=== PATIENT | female | born 1995 | race Caucasian/White ===

== ENCOUNTER 2016-10-14 11:36 | Emergency (ER) | payer OTHER ==
[2016-10-14 12:24] VITALS: BP 146/76
== END 2016-10-14 13:44 | disposition left against medical advice (07) ==
LOC: ED 11:36
DX: M54.9 Dorsalgia, unspecified (principal)

== ENCOUNTER 2016-10-16 10:26 | Emergency (ER) | payer OTHER | END 2016-10-16 12:06 | disposition left against medical advice (07) | LOC: UCEAST 10:26 | DX: K62.89 Other specified diseases of anus and rectum (principal) ==

== ENCOUNTER 2016-10-27 09:40 | Emergency (ER) | payer OTHER ==
[2016-10-27 10:52] VITALS: BP 148/80
--- NOTE | 2016-10-27 11:03 | UC ---
- HPI Summary HPI Summary: Here for test took one at home that was positive and one was negative LMP [id number]/14/16 feels more fatigued, breast tenderness not sure if she wants to be but will give up for adoption needs a med refill- lidocaine jelly for genital herpes outbreak current outbreak started valtrex this morning needs albuterol inhaler- - History of Current Complaint Chief Complaint: UCGeneralIllness Stated Complaint: TEST Time Seen by Provider: 10/27/16 10:58 Hx Obtained From: Patient - Assessment Hx Now: No Hx Hysterectomy: No - Additional Pertinent History Primary Care Physician: [id number] - Allergies/Home Medications Allergies/Adverse Reactions: Allergies Allergy/AdvReac Type Severity Reaction Status Date / Time Cefadroxil [From [facility] [place] Allergy Severe Hives Verified 07/29/16 18:55 Amoxicillin Allergy Rash And Verified 07/29/16 18:55 Itching Clindamycin Allergy Nausea And Verified 07/29/16 18:55 Vomiting Home Medications: Home Medications ValACYclovir (*) [Valtrex 500 mg (*)] 500 mg PO 10/27/16 [History] PMH/Surg Hx/FS Hx/Imm Hx Previously Healthy: No - herpes outbreak Endocrine/Hematology History: Reports: Hx Thyroid Disease Denies: Hx Diabetes Cardiovascular History: Denies: Hx Hypertension Respiratory History: Reports: Hx Asthma Denies: Hx Chronic Obstructive Pulmonary Disease (COPD) GI History: Denies: Hx Ulcer Sensory History: Denies: Hx Contacts or Glasses Opthamlomology History: Denies: Hx Contacts or Glasses Neurological History: Denies: Other Neuro Impairments/Disorders Psychiatric History: Reports: Hx Eating Disorder - binging & purging age 11-18 Denies: Hx of Violent Episodes Against Others - Surgical History Surgery Procedure, Year, and Place: wisdom teeth extraction 2013 Hx Anesthesia Reactions: No Infectious Disease History: Yes Infectious Disease History: Reports: Hx Clostridium Difficile Denies: Hx Hepatitis, Hx Human Immunodeficiency Virus (HIV), Hx of Known/ Suspected MRSA, Hx Shingles, Hx Tuberculosis, Hx Known/Suspected VRE, Hx Known/ Suspected VRSA, History Other Infectious Disease, Traveled Outside the [place] in Last 30 Days - Family History Known Family History: Positive: Hypertension, Diabetes, Respiratory Disease - asthma - Social History Occupation: Unemployed Alcohol Use: Occasionally Hx Substance Use: Yes Substance Use Type: Reports: Marijuana Substance Use Comment - Amount & Last Used: THIS PAST WEEKEND Hx Tobacco Use: No Smoking Status (MU): Former Smoker Type: Cigarettes Amount Used/How Often: up to 2 cigs weekly Have You Smoked in the Last Year: No Review of Systems Constitutional: Negative Skin: Rash Eyes: Negative ENT: Negative Respiratory: Negative Cardiovascular: Negative Gastrointestinal: Negative Genitourinary: Negative Motor: Negative Neurovascular: Negative Musculoskeletal: Negative Neurological: Negative Psychological: Negative All Other Systems Reviewed And Are Negative: Yes Physical Exam - Physical Exam Triage Information Reviewed: Yes Vital Signs Reviewed: Yes Appearance: Positive: Well-Appearing, Obese Skin: Positive: Warm, Other - refuses to have exam of herpes rash Eyes: Positive: Conjunctiva Clear ENT: Positive: Pharynx normal, TMs normal Neck: Positive: No Lymphadenopathy Respiratory/Lung Sounds: Positive: Breath Sounds Present, Decreased Breath Sounds Cardiovascular: Positive: RRR, Pulses are Symmetrical in both Upper and Lower Extremities Abdomen Description: Positive: Nontender, Soft, Distended Bowel Sounds: Positive: Present Musculoskeletal: Negative: Edema Left, Edema Right Neurological: Positive: Alert, Oriented to Person Place, Time Psychiatric: Positive: Normal AVPU Assessment: Alert Course/Dx - Course Course Of Treatment: JONATHAN 06/16/17- will start vitamin refer to CAREER DEVELOPMENT DIRECTOR. continue valtrex -safe during when needed - Diagnoses Provider Diagnoses: Discharge - Discharge Plan Condition: Stable Disposition: HOME Prescriptions: Albuterol HFA INHALER* [Ventolin HFA Inhaler*] 2 puff INH Q4H PRN #1 mdi PRN Reason: Wheezing Lidocaine 2% JELLY* 1 applic TOPICAL TID #1 jelly Vitamin TAB* 1 tab PO DAILY #30 tab Patient Education Materials: (ED) Referrals: No Primary Care Phys,NOPCP [Primary Care Provider] - Yanet Epps MD [Medical Doctor] - Additional Instructions: start your vitamin' call CAREER DEVELOPMENT DIRECTOR for further care It is important that you stop drinking alcohol and limit caffeine to 1 cup per day Do not take any medications without discussin with your ON/COLD WORKING INSPECTOR provider Please call Physician referral service to establish a primary care provider
== END 2016-10-27 11:30 | disposition home or self-care (01) ==
LOC: UCEAST 09:40
DX: Z33.1 Pregnant state, incidental (principal); Z88.1 Allergy status to other antibiotic agents; Z88.0 Allergy status to penicillin; F12.90 Cannabis use, unspecified, uncomplicated; Z87.891 Personal history of nicotine dependence
CPT/HCPCS: 81025; 99212; G0463

== ENCOUNTER 2016-11-01 07:14 | Emergency (ER) | payer OTHER ==
--- NOTE | 2016-11-01 08:10 | ED ---
Abdominal Pain/Female - HPI Summary HPI Summary: 21 F presents with pelvic pain for a week. A week ago she found out she was at urgent care. She says since then she has had cramp like pelvic pain. She has not taken anything for the pain. She admits to some nausea and vomiting. She denies any diarrhea or constipation. She denies any vaginal bleeding or discharge or dysuria. Her LMP was dec 14. She also admits to hemorrhoids that she has had for 4 weeks. She admits to occasionally rectal bleeding. - History of Current Complaint Chief Complaint: EDOBProblems Stated Complaint: 8 WKS PREG//LOWER ABD PAIN Time Seen by Provider: 11/01/16 07:50 Hx Last Menstrual Period: 09/08/16 Pain Intensity: 10 Allergies/Adverse Reactions: Allergies Allergy/AdvReac Type Severity Reaction Status Date / Time Cefadroxil [From Duricef] Allergy Severe Hives Verified 07/29/16 18:55 Amoxicillin Allergy Rash And Verified 07/29/16 18:55 Itching Clindamycin Allergy Nausea And Verified 07/29/16 18:55 Vomiting PMH/Surg Hx/FS Hx/Imm Hx Endocrine/Hematology History: Reports: Hx Thyroid Disease Denies: Hx Diabetes Cardiovascular History: Denies: Hx Hypertension Respiratory History: Reports: Hx Asthma Denies: Hx Chronic Obstructive Pulmonary Disease (COPD) GI History: Denies: Hx Ulcer Sensory History: Denies: Hx Contacts or Glasses Opthamlomology History: Denies: Hx Contacts or Glasses Neurological History: Denies: Other Neuro Impairments/Disorders Psychiatric History: Reports: Hx Eating Disorder - binging & purging age 11-18 Denies: Hx of Violent Episodes Against Others - Surgical History Surgery Procedure, Year, and Place: wisdom teeth extraction 2013 Hx Anesthesia Reactions: No Infectious Disease History: No Infectious Disease History: Reports: Hx Clostridium Difficile Denies: Hx Hepatitis, Hx Human Immunodeficiency Virus (HIV), Hx of Known/ Suspected MRSA, Hx Shingles, Hx Tuberculosis, Hx Known/Suspected VRE, Hx Known/ Suspected VRSA, History Other Infectious Disease, Traveled Outside the [place] in Last 30 Days - Family History Known Family History: Positive: Hypertension, Diabetes, Respiratory Disease - asthma - Social History Alcohol Use: Occasionally Hx Substance Use: Yes Substance Use Type: Reports: Marijuana Substance Use Comment - Amount & Last Used: THIS PAST WEEKEND Hx Tobacco Use: No Smoking Status (MU): Former Smoker Type: Cigarettes Amount Used/How Often: up to 2 cigs weekly Have You Smoked in the Last Year: No Review of Systems Negative: Fever Negative: Chest Pain Negative: Shortness Of Breath Positive: Abdominal Pain - pelvic pain, Vomiting, Nausea. Negative: Diarrhea All Other Systems Reviewed And Are Negative: Yes Physical Exam Triage Information Reviewed: Yes Vital Signs On Initial Exam: Initial Vitals Temp Pulse Resp BP Pulse Ox 98.2 F 94 20 139/59 100 11/01/16 07:31 11/01/16 07:31 11/01/16 07:31 11/01/16 07:31 11/01/16 07:31 Vital Signs Reviewed: Yes Appearance: Positive: Well-Appearing Skin: Positive: Warm, Dry Head/Face: Positive: Normal Head/Face Inspection Eyes: Positive: Normal, Conjunctiva Clear ENT: Positive: Normal ENT inspection, Pharynx normal, TMs normal Respiratory/Lung Sounds: Positive: Clear to Auscultation, Breath Sounds Present Cardiovascular: Positive: Normal, RRR Abdomen Description: Positive: Soft, Other: - mild tenderness to suprapubic region, no hemorrhoids present on exam, no rebound tenderness Bowel Sounds: Positive: Present Diagnostics - Vital Signs Vital Signs Temp Pulse Resp BP Pulse Ox 11/01/16 07:31 98.2 F 94 20 139/59 100 - Laboratory Result Diagrams: 11/01/16 08:50 11/01/16 08:50 Lab Statement: Any lab studies that have been ordered have been reviewed, and results considered in the medical decision making process. - CT No standard instances CT Interpretation: Positive (See Comments) - IMPRESSION: There is a single intrauterine gestation with a gestational age of 7 weeks 2 days. Estimated date of delivery is June 18, 2017. heart activity is noted at [address] Interpretation Completed By: Radiologist Abdominal Pain Fem Course/Dx - Course Course Of Treatment: 21 F presents with cramp like pelvic pain for a week. LMP was sep 08. urine test last week at . admits to n/v. denies any diarrhea or constipation. also has hemorrhoids to 4 weeks. mild pelvic tenderness one exam. no RLQ tenderness and do not suspect appendicits. no visible external hemorrhoids on exam. u/s interurteine with gestation age 7w2d with heart rate. explained that could by PID as cause but patient decline vaginal exam said will have done at obgyn when makes appointment. labs has slight wbc but rest of labs normal. will treat hemorrhoid conservatively and advised to establish primary. gave diclegis for nausea, patient agrees with plan - Diagnoses Differential Diagnosis: Positive: Appendicitis, Pelvic Inflammatory Disease, , Urinary Tract Infection Provider Diagnoses: Discharge - Discharge Plan Condition: Good Disposition: HOME Prescriptions: Doxylamine/Pyridoxine(NF) [Diclegis (NF)] 2 tab PO DAILY #20 tab Patient Education Materials: (ED) Referrals: [facility] [place] [facility] [Outside] Kim Yeh MD [Medical Doctor] - Additional Instructions: Establish care with primary and OBGYN Increase fiber, use stiz baths, and can use OTC topical hemorrhoid cream Take Tylenol every 6 hours for pain as needed Take two tablets diclegis bedtime for nausea Return to ED if develop any vaginal bleeding or any new or worsening symptoms
--- NOTE | 2016-11-01 09:00 | RAD ---
Indication: Pelvic pain. Real-time sonography of the was performed. There is a single intrauterine gestation with a pole crown-rump length of 1.2 cm corresponding to gestational age 7 weeks 2 days. heart activity is noted at 161 bpm. Amniotic fluid is within normal limits. The gestational sac size averages 3.0 cm corresponding to gestational age of 7 weeks 1 day. The cervix is unremarkable. The ovaries are not visualized. IMPRESSION: There is a single intrauterine gestation with a gestational age of 7 weeks 2 days. Estimated date of delivery is June 18, 2017. heart activity is noted at 161 bpm.
[2016-11-01 09:03] LABS: Hematocrit 38 % (35-47); Hemoglobin 12.4 g/dl (12.0-16.0); Mean Corpuscular HGB Conc 32 g/dl (31-36); Mean Corpuscular Hemoglobin 26 pg (27-31); Mean Corpuscular Volume 81 fL (80-97); Mean Platelet Volume 8 um3 (7.4-10.4); Red Blood Count 4.71 10^6/ul (4.0-5.4); Red Cell Distribution Width 16 % (10.5-15); White Blood Count 13.1 10^3/ul (3.5-10.8)
[2016-11-01 09:19] LABS: Albumin 4.2 g/dL (3.2-5.2); BUN/Creatinine Ratio 16.7 (8-20); Calcium 9.2 mg/dL (8.6-10.3); EGFR African American 131.5 (>60); EGFR Non-African American 102.3 (>60); Globulin 3.5 g/dL (2-4); Potassium 3.7 mmol/L (3.5-5.0); Total Bilirubin 0.4 mg/dL (0.2-1.0); Total Protein 7.7 g/dL (6.4-8.9)
[2016-11-01 10:33] VITALS: BP 122/72
[2016-11-01 10:36] LABS: Urine Bacteria Absent (Absent); Urine Bilirubin Negative (Negative); Urine Glucose Negative (Negative); Urine Nitrite Negative (Negative)
== END 2016-11-01 10:30 | disposition home or self-care (01) ==
LOC: ED 07:14
DX: R10.2 Pelvic and perineal pain (principal); R11.2 Nausea with vomiting, unspecified; Z3A.01 Less than 8 weeks gestation of pregnancy
CPT/HCPCS: 36415; 76817; 80053; 81003; 81015; 84702; 85025; 86900; 86901; 87086; 99282

== ENCOUNTER 2016-11-11 13:23 | Emergency (ER) | payer OTHER ==
[2016-11-11] MEDS ORDERED: Ipratropium 0.5MG/2.5ML NEB* 0.5 MG/2.5 ML NEB.SOLN INH ONE (13:33)
[2016-11-11] MEDS ORDERED: Albuterol 2.5 MG/3 ML NEB.SOL* (0.083%) INH ONE ×2 (13:33→14:17)
[2016-11-11] MEDS ORDERED: Albuterol 2.5 MG/3 ML NEB.SOL* (0.083%) ONE (13:33)
[2016-11-11] MEDS ORDERED: Ipratropium 0.5MG/2.5ML NEB* 0.5 MG/2.5 ML NEB.SOLN ONE (13:33)
[2016-11-11 13:37] VITALS: BP 146/86
[2016-11-11] MEDS ORDERED: Ibuprofen TAB* 400 MG PO ONE (14:17)
[2016-11-11] MEDS ORDERED: methylPREDNISolone SOD SUCC* 125 MG 2 ML VIAL IM ONE (14:20)
--- NOTE | 2016-11-11 15:16 | RAD ---
HISTORY: Wheezing, cough, fever COMPARISONS: November 10, 2015 VIEWS: 2: Frontal dual-energy and lateral views of the chest. FINDINGS: CARDIOMEDIASTINAL SILHOUETTE: The cardiomediastinal silhouette is normal. TARAN: The taran are normal. PLEURA: The costophrenic angles are sharp. No pleural abnormalities are noted. LUNG PARENCHYMA: The lungs are clear. ABDOMEN: The upper abdomen is clear. There is no subphrenic gas. BONES AND SOFT TISSUES: No bone or soft tissue abnormalities are noted. OTHER: None. IMPRESSION: NO ACTIVE CARDIOPULMONARY DISEASE.
[2016-11-11] MEDS ORDERED: NS 0.9% 1000 ML* 1,000 ML IV ONE (15:33)
--- NOTE | 2016-12-27 09:53 | UC ---
Ap Garcia Adam, scribed for Marielos Robert, DO on 11/11/16 at 1341 . Respiratory Complaint HPI <Cecille Stratton - Last Filed: 11/11/16 15:27> - HPI Summary HPI Summary: Pt is a 21 year old female presenting with SOB. She states that she can not walk more than 4 steps without becoming short of breath. Pt states that she got sick approximately 2 weeks ago with cough, congestion, and some blood in her sputum. She states that she has been unable to tolerate food for the past 4 days without vomiting. She had an episode of syncope in the shower last night and does not remember if she hit her head. She does c/o increased [place] since the fall last night. Pt is 2 months and 3 days . She has not seen an OB yet. PMHx of asthma and thyroid disease. - History of Current Complaint Hx Obtained From: Patient Hx Last Menstrual Period: 09/08/16 ?: Yes Onset/Duration: Gradual Onset, Lasting Days, Still Present Timing: Constant Severity Initially: Moderate Severity Currently: Moderate Pain Intensity: 10 Character: Sputum Description: - Some blood found Aggravating Factors: Exertion Alleviating Factors: Nothing Associated Signs And Symptoms: Positive: Dyspnea, URI, Nasal Congestion - Risk Factors Pulmonary Embolism Risk Factors: <Marielos Robert - Last Filed: 12/27/16 09:53> - History of Current Complaint Stated Complaint: BREATHING ISSUE,ASTHMA,PREG Time Seen by Provider: 11/11/16 13:33 - Allergies/Home Medications Allergies/Adverse Reactions: Allergies Allergy/AdvReac Type Severity Reaction Status Date / Time Cefadroxil [From Duricef] Allergy Severe Hives Verified 12/19/16 12:24 Amoxicillin Allergy Rash And Verified 12/19/16 12:24 Itching Clindamycin Allergy Nausea And Verified 12/19/16 12:24 Vomiting Home Medications: Home Medications Acetaminophen [Extra Strength Acetaminop] 1 tab PO PRN 11/11/16 [History] PMH/Surg Hx/FS Hx/Imm Hx Endocrine History Of: Reports: Thyroid Disease Denies: Diabetes Cardiovascular History Of: Denies: Cardiac Disorders, Hypertension Respiratory History Of: Reports: Asthma Denies: COPD GI/ History Of: Denies: Ulcer Neurological History Of: Denies: CVA - Surgical History Surgical History: Yes Surgery Procedure, Year, and Place: wisdom teeth extraction 2012 - Family History Known Family History: Positive: Hypertension, Diabetes, Respiratory Disease - asthma, Other - Anxiety, bipolar, EtOH abuse - Social History Occupation: Employed Full-time Lives: With Family - Parents Alcohol Use: Occasionally Substance Use Comment - Amount & Last Used: THIS PAST Smoking Status (MU): Former Smoker Type: Cigarettes Amount Used/How Often: up to 2 cigs weekly Have You Smoked in the Last Year: No When Did the Patient Quit Smoking/Using Tobacco: 2013 Household Exposure Type: Cigarettes - Immunization History Most Recent Influenza Vaccination: [facility] Most Recent Tetanus Shot: [facility] Most Recent Pneumonia Vaccination: NONE <Marielos Robert - Last Filed: 12/27/16 09:53> Review of Systems Constitutional: Negative ENT: Other - Congestion Respiratory: Shortness Of Breath, Cough Neurological: Headache, Other - Syncope All Other Systems Reviewed And Are Negative: Yes <Marielos Robert - Last Filed: 12/27/16 09:53> Physical Exam Vital Signs: Initial Vital Signs Temp 98.8 F 11/11/16 13:28 Pulse 104 11/11/16 13:28 Resp 36 11/11/16 13:28 BP 146/86 11/11/16 13:28 Pulse Ox 96 11/11/16 13:28 <Cecille Stratton - Last Filed: 11/11/16 15:27> Triage Information Reviewed: Yes Appearance: Well-Appearing, No Pain Distress, Well-Nourished Vital Signs: Initial Vital Signs Temp 98.8 F 11/11/16 13:28 Pulse 104 11/11/16 13:28 Resp 36 11/11/16 13:28 BP 146/86 11/11/16 13:28 Pulse Ox 96 11/11/16 13:28 Eyes: Positive: Conjunctiva Clear. Negative: Discharge ENT: Positive: Hearing grossly normal. Negative: Muffled/hoarse voice Neck: Positive: Supple, Nontender Respiratory: Positive: No accessory muscle use, Respiratory distress - mild, Wheezing - diffuse, all feilds Cardiovascular: Positive: RRR, No Murmur Abdomen Description: Positive: Nontender, Soft Bowel Sounds: Positive: Present Musculoskeletal Exam: Normal Neurological: Positive: Alert, Muscle Tone Normal Psychological Exam: Normal Psychological: Positive: Age Appropriate Behavior Skin: Positive: Other - Warm, dry, normal color <Marielos Robert - Last Filed: 12/27/16 09:53> UC Diagnostic Evaluation - Laboratory Diagnostic Studies Comment: CXR neg <Cecille Stratton - Last Filed: 11/11/16 15:27> Re-Evaluation - Re-Evaluation First Eval Re-Evaluation Time: 14:40 Comment: after Duoneb, she feels about the same. SOB at rest, can't speak in complete sentences. No vomiting here, no vaginal bleeding or abdominal cramping. She does relate to me that she has been vomiting consistently for past few days, "can't hold anything down", vomiting spells initiated by cough and wheezing. Coughing up brown/yellow/bloody phlegm. Worsening symptoms for past 4d, but URI symptoms present for about 2 weeks. , was referred here by her OB office when she reported that frequent nebulizer use wasn't helping her. Second Eval Re-Evaluation Time: 15:15 Change: Unchanged Comment: on return from CXR, was again severely SOB at rest. Started a second neb. Diffuse exp wheezes, rhonchi. I do not think she will clear here in Urgent Care, have arranged for ambulance transfer to [facility]. Spoke with PA in ER who accepted transfer. <Cecille Stratton - Last Filed: 11/11/16 15:27> Respiratory Course/Dx - Differential Dx/Diagnosis Differential Diagnosis/HQI/PQRI: Asthma, Bronchitis, Lower Resp Infection, Pneumothorax, Pulmonary Embolism Provider Diagnoses: asthma exacerbation in <Cecille Stratton - Last Filed: 11/11/16 15:27> - Course Course Of Treatment: 14:19 - Going to repeat neb and swab for flu. <Marielos Robert - Last Filed: 12/27/16 09:53> Discharge <Cecille Stratton - Last Filed: 11/11/16 15:27> <Marielos Robert - Last Filed: 12/27/16 09:53> - Discharge Plan Condition: Guarded Disposition: TRANS HIGHER LVL OF CARE FAC Referrals: No Primary Care Phys,NOPCP [Primary Care Provider] - The documentation as recorded by the Ap lizarraga Adam accurately reflects the service I personally performed and the decisions made by , Marielos Robert DO.
== END 2016-11-11 16:10 | disposition short-term general hospital (02) ==
LOC: UCEAST 13:23
DX: O26.891 Other specified pregnancy related conditions, first trimester (principal); J45.901 Unspecified asthma with (acute) exacerbation; Z88.1 Allergy status to other antibiotic agents; E07.9 Disorder of thyroid, unspecified; Z87.891 Personal history of nicotine dependence
CPT/HCPCS: 71020; 96360; 99213; 99214; A9270-GY; G0463; J7644

== ENCOUNTER → 2016-11-11 16:16 | Emergency (ER) | payer OTHER ==
[~2016-11-11 16:16] MED LIST: Acetaminop/Codeine 30 MG TAB* 1 TAB (300 MG/30 MG) PO ONE; Albuterol/Ipratropium NEB.SOL* Albuterol 2.5 MG/Ipratropium 0.5 MG 3 ML INH ONE; Ondansetron ODT TAB* 4 MG PO ONE
[2016-11-11 16:49] VITALS: BP 137/62
--- NOTE | 2016-11-27 20:32 | ED ---
Sampson Garcia Anna, scribed for Bernardino Barajas MD on 11/11/16 at 1747 . Shortness of Breath - HPI Summary HPI Summary: Patient is a 21 y/o female coming to [facility] presenting with SOB that began four days ago. She reports that she cannot walk short distances without an asthma attack. She has an unproductive cough and cannot keep down food because of the coughing. She has had hot flashes. She had a fever of 100.5 three days ago. She has had diarrhea since the beginning of her , 8 weeks ago. She reports slight muscular abdominal pain that she attributes to the coughing. Denies chills. The breathing treatment at [facility] [place] alleviated her symptoms somewhat, but then she was unable to catch her breath. Her history is significant for asthma. - History of Current Complaint Chief Complaint: ED Time Seen by Provider: 11/11/16 16:45 Hx Obtained From: Patient, Family/It Application Support Analyst - Allergy/Home Medications Allergies/Adverse Reactions: Allergies Allergy/AdvReac Type Severity Reaction Status Date / Time Cefadroxil [From Duricef] Allergy Severe Hives Verified 11/11/16 13:25 Amoxicillin Allergy Rash And Verified 11/11/16 13:25 Itching Clindamycin Allergy Nausea And Verified 11/11/16 13:25 Vomiting PMH/Surg Hx/FS Hx/Imm Hx Endocrine/Hematology History: Reports: Hx Thyroid Disease Denies: Hx Diabetes Cardiovascular History: Denies: Hx Hypertension Respiratory History: Reports: Hx Asthma Denies: Hx Chronic Obstructive Pulmonary Disease (COPD) GI History: Denies: Hx Ulcer Sensory History: Denies: Hx Contacts or Glasses Opthamlomology History: Denies: Hx Contacts or Glasses Neurological History: Denies: Other Neuro Impairments/Disorders Psychiatric History: Reports: Hx Eating Disorder - binging & purging age 11-18 Denies: Hx of Violent Episodes Against Others - Surgical History Surgery Procedure, Year, and Place: wisdom teeth extraction 2012 Hx Anesthesia Reactions: No Infectious Disease History: No Infectious Disease History: Reports: Hx Clostridium Difficile - 2014 Denies: Hx Hepatitis, Hx Human Immunodeficiency Virus (HIV), Hx of Known/ Suspected MRSA, Hx Shingles, Hx Tuberculosis, Hx Known/Suspected VRE, Hx Known/ Suspected VRSA, History Other Infectious Disease, Traveled Outside the [place] in Last 30 Days - Family History Known Family History: Positive: Hypertension, Diabetes, Respiratory Disease - asthma - Social History Lives: With Family Alcohol Use: None Hx Substance Use: Yes Substance Use Type: Reports: Marijuana Substance Use Comment - Amount & Last Used: Prior to Hx Tobacco Use: No Smoking Status (MU): Former Smoker Type: Cigarettes Amount Used/How Often: up to 2 cigs weekly Have You Smoked in the Last Year: No Review of Systems Positive: Fever, Other - hot flashes. Negative: Chills Positive: Shortness Of Breath, Cough Positive: Abdominal Pain, Diarrhea. Negative: Nausea Negative: dysuria, hematuria Negative: Myalgia, Edema Negative: Rash Neurological: Other - Denies dizziness All Other Systems Reviewed And Are Negative: Yes Physical Exam - Summary Physical Exam Summary: Constitutional: Well-developed, Well-nourished, Alert. (-) Distressed Skin: Warm, Dry HENT: Normocephalic; Atraumatic Eyes: Conjunctiva normal Neck: Musculoskeletal ROM normal neck. (-) JVD, (-) Stridor, (-) Tracheal deviation Cardio: Rhythm regular, rate normal, Heart sounds normal; Intact distal pulses; The pedal pulses are 2+ and symmetric. Radial pulses are 2+ and symmetric. ~(-) Murmur Pulmonary/Chest wall: Effort normal. (-) Respiratory distress, Mild expiratory wheezes, (-) Rales. Pt is actively coughing. Abd: Soft, (-) Tenderness, ~(-) Distension, (-) Guarding, (-) Rebound Musculoskeletal: (-) Edema Lymph: (-) Cervical adenopathy Neuro: Alert, Oriented x3 Psych: Mood and affect Normal Triage Information Reviewed: Yes Vital Signs On Initial Exam: Initial Vitals Temp Pulse Resp BP Pulse Ox 98.5 F 77 26 137/62 98 11/11/16 16:40 11/11/16 16:40 11/11/16 16:40 11/11/16 16:40 11/11/16 16:40 Vital Signs Reviewed: Yes Diagnostics - Vital Signs Vital Signs Temp Pulse Resp BP Pulse Ox 11/11/16 16:49 98.5 F 79 26 137/62 98 11/11/16 16:40 98.5 F 77 26 137/62 98 - Laboratory Lab Statement: Any lab studies that have been ordered have been reviewed, and results considered in the medical decision making process. Course/Dx - Course Assessment/Plan: Patient is a 21 y/o female coming to [facility] presenting with SOB that began four days ago. She reports that she cannot walk short distances without an asthma attack. She has an unproductive cough and cannot keep down food because of the coughing. She has had hot flashes. She had a fever of 100.5 three days ago. She has had diarrhea since the beginning of her , 8 weeks ago. She reports slight muscular abdominal pain that she attributes to the coughing. Denies chills. The breathing treatment at [facility] [place] alleviated her symptoms somewhat, but then she was unable to catch her breath. Her history is significant for asthma. Pt was given inhalatory treatment in the ED. Discussed care with Dr. Ramirez (MASETR) at 1842. Recommends pt be treated with Pulmicort. Pt will be discharged to follow up with PCP. - Diagnoses Provider Diagnoses: Asthma exacerbation - Physician Notifications Discussed Care of Patient With: Dr. Ashley CHAUDHRY) at 1842. Recommends pt be treated with Pulmicort. Discharge - Discharge Plan Condition: Stable Disposition: HOME Referrals: [facility] [place] [facility] [Outside] Additional Instructions: Follow up with primary care physician within 48 hours. Return to the emergency department for changing or worsening symptoms. The documentation as recorded by the Sampson lizarraga Anna accurately reflects the service I personally performed and the decisions made by , Bernardino Barajas MD.
== END | disposition home or self-care (01) ==
LOC: ED 16:16
DX: J45.901 Unspecified asthma with (acute) exacerbation (principal); R06.02 Shortness of breath; R50.9 Fever, unspecified; R10.9 Unspecified abdominal pain; R19.7 Diarrhea, unspecified; R05 Cough; Z87.891 Personal history of nicotine dependence
CPT/HCPCS: 99282; A9270-GY

== ENCOUNTER 2016-12-19 09:34 | Emergency (ER) | payer OTHER ==
[2016-12-19] MEDS ORDERED: Ondansetron INJ* 2 MG/ML VIAL ONE (09:41)
[2016-12-19] MEDS ORDERED: NS 0.9% 1000 ML* 1,000 ML IV ONE (09:42)
[2016-12-19] MEDS ORDERED: Ondansetron INJ* 2 MG/ML VIAL IV ONE ×2 (09:42→09:43)
[2016-12-19 09:51] LABS: Hematocrit 36 % (35-47); Hemoglobin 11.5 g/dl (12.0-16.0); Mean Corpuscular HGB Conc 32 g/dl (31-36); Mean Corpuscular Hemoglobin 26 pg (27-31); Mean Corpuscular Volume 81 fL (80-97); Mean Platelet Volume 7 um3 (7.4-10.4); Red Blood Count 4.38 10^6/ul (4.0-5.4); Red Cell Distribution Width 15 % (10.5-15); White Blood Count 19.6 10^3/ul (3.5-10.8)
[2016-12-19] MEDS ORDERED: HYDROmorphone INJ* 1 MG/ML CARPUJECT SYRINGE IV ONE (09:51)
[2016-12-19] MEDS ORDERED: LORazepam INJ* 2 MG/ML 1 ML VIAL IV PUSH ONE ×2 (09:51→14:04)
[2016-12-19 10:01] LABS: Albumin 3.8 g/dL (3.2-5.2); BUN/Creatinine Ratio 11.7 (8-20); Calcium 8.9 mg/dL (8.6-10.3); EGFR African American 162.3 (>60); EGFR Non-African American 126.2 (>60); Globulin 3.2 g/dL (2-4); Potassium 3.6 mmol/L (3.5-5.0); Total Bilirubin 0.5 mg/dL (0.2-1.0)
[2016-12-19] MEDS ORDERED: Misoprostol TAB* 200 MCG VAGINAL ONE ×2 (11:07→15:49)
[2016-12-19] MEDS ORDERED: HYDROmorphone INJ* 1 MG/ML CARPUJECT SYRINGE IV SLOW PU PRN (11:59)
[2016-12-19] MEDS ORDERED: DOXYcycline IV* 100 MG in NS 0.9% 250 ML* 250 ML IVPB ONE (13:00)
[2016-12-19] MEDS ORDERED: Morphine INJ* 4 MG/ML 1 ML CARPUJECT IV ONE (15:07)
--- NOTE | 2016-12-19 15:13 | RAD ---
INDICATION: Pelvic pain 14 weeks status post miscarriage. Clinical concern for retained products of conception. COMPARISON: Most recent pelvic ultrasound is the patient's first trimester gravid ultrasound dated November 01, 2016. TECHNIQUE: Real-time transabdominal and transvaginal ultrasound examination of the female pelvis including grayscale and Doppler color flow imaging. FINDINGS: Uterus: The uterus measures 13.7 x 6 x 7.4 cm. The endometrial stripe is thickened at the lower uterine segment measuring 3 cm in thickness. There is no vascularity overlying this area. Ovaries: The right and left ovary measure 2.7 x 2.5 x 3.6 cm and 2.3 x 1.9 x 3.0 cm, respectively. Normal arterial and venous waveforms are identified. Appearance is within normal limits for the patient's age. There is no free fluid in the cul-de-sac. IMPRESSION: Abnormally thickened lower uterine segment measuring 3 cm in thickness. There is no definite vascular flow overlying this area which would be characteristic of retained products of conception. Although blood products are the favored etiology, retained products of conception is not absolutely ruled out in this clinical setting.
[2016-12-19 15:50] LABS: Hematocrit 28 % (35-47); Hemoglobin 8.8 g/dl (12.0-16.0); Mean Corpuscular HGB Conc 32 g/dl (31-36); Mean Corpuscular Hemoglobin 26 pg (27-31); Mean Corpuscular Volume 82 fL (80-97); Mean Platelet Volume 7 um3 (7.4-10.4); Red Cell Distribution Width 15 % (10.5-15); White Blood Count 22.7 10^3/ul (3.5-10.8)
[2016-12-19 15:51] LABS: Add Diff/Slide Review? Slide Review Added; Comments Flag Yes
--- NOTE | 2016-12-19 16:20 | ED ---
Shalonda Garcia Janilya, scribed for Rochelle Joel MD on 12/19/16 at 1006 . GI/ HPI - HPI Summary HPI Summary: A 21 y/o female came [place] [facility] [place] w/ a gradual onset of constant vaginal bleeding starting yesterday. Pt is 14 weeks ; first . Pt states she has been bleeding since yesterday. At first, it was spotting. She was seen at ER in [place] there showed normal fetus. She was not given anti -anxiety meds and was told to go to hospital if conditions worsened. Since then, her bleeding has increased in amount and frequency. The blood was also clotting more. Pt also felt increased amount of pain and abd discomfort that felt like "there is pulling on umbilical cord". Pt states that she also feels like "there is something down there". PMHx asthma, anxiety. - History of Current Complaint Chief Complaint: EDVaginalBleeding Time Seen by Provider: 12/19/16 09:41 Stated Complaint: 14WKS PREG /POSS MISCARRIAGE Hx Obtained From: Patient Onset/Duration: Started Days Ago, Atraumatic, Worse Since - yesterday Timing: Constant Severity: Moderate Current Severity: Moderate Vaginal Bleeding Description: Bright Red Pain Intensity: 10 Associated Signs and Symptoms: Positive: Negative Additional Signs & Symptoms: Positive: Vaginal Bleeding, Miscarriage Aggravating Factor(s): Nothing Alleviating Factor(s): Nothing - Additional Pertinent History Primary Care Physician: [id number] - Allergy/Home Medications Allergies/Adverse Reactions: Allergies Allergy/AdvReac Type Severity Reaction Status Date / Time [facility] Allergy Severe Hives Verified 12/19/16 12:24 Amoxicillin Allergy Rash And Verified 12/19/16 12:24 Itching Clindamycin Allergy Nausea And Verified 12/19/16 12:24 Vomiting PMH/Surg Hx/FS Hx/Imm Hx Previously Healthy: Yes Endocrine/Hematology History: Reports: Hx Thyroid Disease Denies: Hx Diabetes Cardiovascular History: Denies: Hx Hypertension Respiratory History: Reports: Hx Asthma Denies: Hx Chronic Obstructive Pulmonary Disease (COPD) GI History: Denies: Hx Ulcer Sensory History: Denies: Hx Contacts or Glasses Opthamlomology History: Denies: Hx Contacts or Glasses Neurological History: Denies: Other Neuro Impairments/Disorders Psychiatric History: Reports: Hx Eating Disorder - binging & purging age 11-18 Denies: Hx of Violent Episodes Against Others - Surgical History Surgery Procedure, Year, and Place: wisdom teeth extraction 2013 Hx Anesthesia Reactions: No Infectious Disease History: No Infectious Disease History: Reports: Hx Clostridium Difficile - 2014 Denies: Hx Hepatitis, Hx Human Immunodeficiency Virus (HIV), Hx of Known/ Suspected MRSA, Hx Shingles, Hx Tuberculosis, Hx Known/Suspected VRE, Hx Known/ Suspected VRSA, History Other Infectious Disease, Traveled Outside the [place] in Last 30 Days - Family History Known Family History: Positive: Hypertension, Diabetes, Respiratory Disease - asthma - Social History Alcohol Use: None Hx Substance Use: Yes Substance Use Type: Reports: Marijuana Substance Use Comment - Amount & Last Used: Prior to Hx Tobacco Use: No Smoking Status (MU): Former Smoker Type: Cigarettes Amount Used/How Often: up to 2 cigs weekly Have You Smoked in the Last Year: No Review of Systems Positive: Abdominal Pain Genitourinary: Other - vaginal bleeding Positive: Anxious All Other Systems Reviewed And Are Negative: Yes Physical Exam Triage Information Reviewed: Yes Vital Signs On Initial Exam: Initial Vitals Temp Pulse Resp BP Pulse Ox 98.7 F 92 24 141/66 95 12/19/16 09:36 12/19/16 09:36 12/19/16 09:36 12/19/16 09:36 12/19/16 09:36 Vital Signs Reviewed: Yes Appearance: Positive: Well-Appearing, Pain Distress Skin: Positive: Warm, Skin Color Reflects Adequate Perfusion, Dry Eyes: Positive: EOMI, ESTHELA ENT: Positive: Pharynx normal, TMs normal Neck: Positive: Supple, Nontender Respiratory/Lung Sounds: Positive: Clear to Auscultation, Breath Sounds Present. Negative: Rales, Rhonchi, Wheezes Cardiovascular: Positive: RRR. Negative: Murmur, Rub, Other - no gallops Abdomen Description: Positive: Soft. Negative: Nontender - abd tender to palpation, Distended, Guarding, Other: - no rebound Bowel Sounds: Positive: Present Pelvic Exam: Positive: other - Fetus attached to cord on the outside of vagina Musculoskeletal: Positive: Strength/ROM Intact. Negative: Edema Left, Edema Right Neurological: Positive: Sensory/Motor Intact, Alert, Oriented to Person Place, Time, CN Intact II-III Psychiatric: Positive: Anxious Diagnostics - Vital Signs Vital Signs Temp Pulse Resp BP Pulse Ox 12/19/16 09:36 98.7 F 92 24 141/66 95 - Laboratory Lab Results: Lab Results 12/19/16 12/19/16 12/19/16 Range/Units 09:38 09:38 09:38 WBC 19.6 H (3.5-10.8) 10^3/ul RBC 4.38 (4.0-5.4) 10^6/ul Hgb 11.5 L (12.0-16.0) g/dl Hct 36 (35-47) % MCV 81 (80-97) fL MCH 26 L (27-31) pg MCHC 32 (31-36) g/dl RDW 15 (10.5-15) % Plt Count 366 (150-450) 10^3/ul MPV 7 L (7.4-10.4) um3 Neut % (Auto) 84.6 H (38-83) % Lymph % (Auto) 8.8 L (25-47) % Sharp % (Auto) 5.2 (1-9) % Eos % (Auto) 1.1 (0-6) % Baso % (Auto) 0.3 (0-2) % Absolute Neuts (auto) 16.6 H (1.5-7.7) 10^3/ul Absolute Lymphs (auto) 1.7 (1.0-4.8) 10^3/ul Absolute Monos (auto) 1.0 H (0-0.8) 10^3/ul Absolute Eos (auto) 0.2 (0-0.6) 10^3/ul Absolute Basos (auto) 0.1 (0-0.2) 10^3/ul Absolute Nucleated RBC 0.01 10^3/ul Nucleated RBC % 0 INR (Anticoag Therapy) 0.96 (0.89-1.11) APTT 29.7 (26.0-36.3) seconds Sodium 132 L (133-145) mmol/L Potassium 3.6 (3.5-5.0) mmol/L Chloride 102 (101-111) mmol/L Carbon Dioxide 22 (22-32) mmol/L Anion Gap 8 (2-11) mmol/L BUN 7 (6-24) mg/dL Creatinine 0.60 (0.51-0.95) mg/dL Est GFR ( Amer) 162.3 (>60) Est GFR (Non-Af Amer) 126.2 (>60) BUN/Creatinine Ratio 11.7 (8-20) Glucose 107 H (70-100) mg/dL Lactic Acid (0.5-2.0) mmol/L Calcium 8.9 (8.6-10.3) mg/dL Total Bilirubin 0.50 (0.2-1.0) mg/dL AST 10 L (13-39) U/L ALT 10 (7-52) U/L Alkaline Phosphatase 66 (34-104) U/L Total Protein 7.0 (6.4-8.9) g/dL Albumin 3.8 (3.2-5.2) g/dL Globulin 3.2 (2-4) g/dL Albumin/Globulin Ratio 1.2 (1-3) Beta HCG, Quant 91527.00 mIU/mL Blood Type Antibody Screen 12/19/16 12/19/16 12/19/16 Range/Units 09:38 09:38 15:30 WBC 22.7 H (3.5-10.8) 10^3/ul RBC 3.40 L (4.0-5.4) 10^6/ul Hgb 8.8 L (12.0-16.0) g/dl Hct 28 L (35-47) % MCV 82 (80-97) fL MCH 26 L (27-31) pg MCHC 32 (31-36) g/dl RDW 15 (10.5-15) % Plt Count 304 (150-450) 10^3/ul MPV 7 L (7.4-10.4) um3 Neut % (Auto) 92.8 H (38-83) % Lymph % (Auto) 4.0 L (25-47) % Sharp % (Auto) 2.8 (1-9) % Eos % (Auto) 0.1 (0-6) % Baso % (Auto) 0.3 (0-2) % Absolute Neuts (auto) 21.1 H (1.5-7.7) 10^3/ul Absolute Lymphs (auto) 0.9 L (1.0-4.8) 10^3/ul Absolute Monos (auto) 0.6 (0-0.8) 10^3/ul Absolute Eos (auto) 0 (0-0.6) 10^3/ul Absolute Basos (auto) 0.1 (0-0.2) 10^3/ul Absolute Nucleated RBC 0 10^3/ul Nucleated RBC % 0 INR (Anticoag Therapy) (0.89-1.11) APTT (26.0-36.3) seconds Sodium (133-145) mmol/L Potassium (3.5-5.0) mmol/L Chloride (101-111) mmol/L Carbon Dioxide (22-32) mmol/L Anion Gap (2-11) mmol/L BUN (6-24) mg/dL Creatinine (0.51-0.95) mg/dL Est GFR ( Amer) (>60) Est GFR (Non-Af Amer) (>60) BUN/Creatinine Ratio (8-20) Glucose (70-100) mg/dL Lactic Acid 1.0 (0.5-2.0) mmol/L Calcium (8.6-10.3) mg/dL Total Bilirubin (0.2-1.0) mg/dL AST (13-39) U/L ALT (7-52) U/L Alkaline Phosphatase (34-104) U/L Total Protein (6.4-8.9) g/dL Albumin (3.2-5.2) g/dL Globulin (2-4) g/dL Albumin/Globulin Ratio (1-3) Beta HCG, Quant mIU/mL Blood Type O Positive Antibody Screen Negative Result Diagrams: 12/19/16 15:30 12/19/16 09:38 Lab Statement: Any lab studies that have been ordered have been reviewed, and results considered in the medical decision making process. - Ultrasound No standard instances Ultrasound Interpretation: Positive (See Comments) - Pelvis Ultrasound IMPRESSION: Abnormally thickened lower uterine segment measuring 3 cm in thickness. There is no definite vascular flow overlying this area which would be characteristic of retained products of conception. Although blood products are the favored etiology, retained products of conception is not absolutely ruled out in this clinical setting. Ultrasound Interpretation Completed By: Radiologist KOFFI Course/Dx - Course Course Of Treatment: 21 yo g1po female with miscarriage of 14 week fetus. Pt presented with parts on the bed, pt complained of severe anxiety and pain and required pain meds to have any portion of an exam, pt ultimately cared for by Dr. Craig in the ED who helped pt deliver the placenta. Pt sent home by her with followup with her - Diagnoses Provider Diagnoses: Miscarriage - Physician Notifications Discussed Care Of Patient With: Dr. Craig (grants and contracts assistant) at 1047: agrees to evaluate pt. Discharge - Discharge Plan Condition: Stable Disposition: HOME Prescriptions: Doxycycline (Monohydrate) [Doxycycline Monohydrate] 100 mg PO BID #14 cap MDD 2 Ferrous Gluconate 240 mg PO DAILY #30 tab Fluoxetine HCl [Prozac] 10 mg PO QAM #30 cap MDD 1 Patient Education Materials: Miscarriage (ED) Referrals: No Primary Care Phys,NOPCP [Primary Care Provider] - The documentation as recorded by the Shalonda lizarraga Janilya accurately reflects the service I personally performed and the decisions made by me, Rochelle Joel MD.
[2016-12-19 16:39] VITALS: BP 152/70
== END 2016-12-19 16:38 | disposition home or self-care (01) ==
LOC: ED 09:34
DX: O03.9 Complete or unspecified spontaneous abortion without complication (principal); R10.9 Unspecified abdominal pain
CPT/HCPCS: 36415; 76856; 80053; 83605; 84702; 85025; 85610; 85730; 86850; 86900; 86901; 88300; 88305; 88309; 96374; 96376; 99285; A9270-GY; J1170; J2060; J2270; J2405

== ENCOUNTER → 2017-07-20 16:09 | Emergency (ER) | payer OTHER ==
[~2017-07-20 16:09] MED LIST changes: -Acetaminop/Codeine 30 MG TAB* 1 TAB (300 MG/30 MG) PO ONE; -Albuterol/Ipratropium NEB.SOL* Albuterol 2.5 MG/Ipratropium 0.5 MG 3 ML INH ONE; -Ondansetron ODT TAB* 4 MG PO ONE; +Ondansetron ODT TAB* 4 MG SL ONE; +traMADol TAB* 50 MG PO ONE
[2017-07-20 16:20] VITALS: BP 139/102
--- NOTE | 2017-07-20 18:45 | ED ---
Abdominal Pain/Female - HPI Summary HPI Summary: Patient presents to the ED with CC of LLQ pain and groin pain after a fall down 2-3 steps and landing "wrong." She notes to 5/10 pain in the groin which radiates through to the LLQ. Mid to lower back pain, but has full ROM without pain. Also, c/o hitting the left side of her neck and denies LOC. She is requesting a note for work today and tomorrow d/t pain. She states since the incident she has vomited twice. PO intake OK. Denies fevers, sweats or chills. Denies ecchymosis and other discolorations to the area of concern. - History of Current Complaint Chief Complaint: EDExtremityLower Stated Complaint: FALL/ABD,BACK & HIP PAIN Time Seen by Provider: 07/20/17 16:24 Hx Obtained From: Patient Hx Last Menstrual Period: 09/08/16 ?: No Onset/Duration: Sudden Onset Timing: Constant Severity Initially: Moderate Severity Currently: Moderate Pain Intensity: 10 Pain Scale Used: 0-10 Numeric Location: Groin Radiates: Yes Radiates to: LLQ Character: Dull Aggravating Factor(s): Nothing Alleviating Factor(s): Nothing Associated Signs and Symptoms: Positive: Negative - Risk Factors Ectopic Risk Factor: Negative Ovarian Torsion Risk Factor: Reproductive Age Allergies/Adverse Reactions: Allergies Allergy/AdvReac Type Severity Reaction Status Date / Time Cefadroxil [From Duricef] Allergy Severe Hives Verified 12/19/16 12:24 Amoxicillin Allergy Rash And Verified 12/19/16 12:24 Itching Clindamycin Allergy Nausea And Verified 12/19/16 12:24 Vomiting PMH/Surg Hx/FS Hx/Imm Hx Previously Healthy: Yes Endocrine/Hematology History: Reports: Hx Thyroid Disease Denies: Hx Diabetes Cardiovascular History: Denies: Hx Hypertension Respiratory History: Reports: Hx Asthma Denies: Hx Chronic Obstructive Pulmonary Disease (COPD) GI History: Denies: Hx Ulcer Sensory History: Denies: Hx Contacts or Glasses Opthamlomology History: Denies: Hx Contacts or Glasses Neurological History: Denies: Other Neuro Impairments/Disorders Psychiatric History: Reports: Hx Eating Disorder - binging & purging age 11-18 Denies: Hx of Violent Episodes Against Others - Surgical History Surgery Procedure, Year, and Place: wisdom teeth extraction 2013 Hx Anesthesia Reactions: No - Immunization History Hx Pertussis Vaccination: No Immunizations Up to Date: Unable to Obtain/Confirm Infectious Disease History: No Infectious Disease History: Reports: Hx Clostridium Difficile - 2014 Denies: Hx Hepatitis, Hx Human Immunodeficiency Virus (HIV), Hx of Known/ Suspected MRSA, Hx Shingles, Hx Tuberculosis, Hx Known/Suspected VRE, Hx Known/ Suspected VRSA, History Other Infectious Disease, Traveled Outside the [place] in Last 30 Days - Family History Known Family History: Positive: Hypertension, Diabetes, Respiratory Disease - asthma - Social History Occupation: Employed Full-time Lives: With Family Alcohol Use: None Hx Substance Use: Yes Substance Use Type: Reports: None Substance Use Comment - Amount & Last Used: Prior to Hx Tobacco Use: No Smoking Status (MU): Former Smoker Type: Cigarettes Amount Used/How Often: up to 2 cigs weekly Have You Smoked in the Last Year: No Review of Systems Constitutional: Negative Eyes: Negative Cardiovascular: Negative Respiratory: Negative Positive: Abdominal Pain, Nausea Positive: Myalgia - left sided groin pain and lower back pain Neurological: Negative Psychological: Normal All Other Systems Reviewed And Are Negative: Yes Physical Exam Triage Information Reviewed: Yes Vital Signs On Initial Exam: Initial Vitals Temp Pulse Resp BP Pulse Ox 98.7 F 83 16 139/102 98 07/20/17 16:16 07/20/17 16:16 07/20/17 16:16 07/20/17 16:16 07/20/17 16:16 Vital Signs Reviewed: Yes Appearance: Positive: Well-Appearing, Well-Nourished, Obese Skin: Positive: Skin Color Reflects Adequate Perfusion Head/Face: Positive: Normal Head/Face Inspection Eyes: Positive: EOMI, ESTHELA, Conjunctiva Clear Respiratory/Lung Sounds: Positive: Clear to Auscultation, Breath Sounds Present Cardiovascular: Positive: RRR, Pulses are Symmetrical in both Upper and Lower Extremities Abdomen Description: Positive: Other: - tenderness to the LLQ on light palpation Musculoskeletal: Positive: Normal, Strength/ROM Intact Neurological: Positive: Speech Normal Psychiatric: Positive: Normal, Affect/Mood Appropriate - [place] Coma Scale Coma Scale Total: 15 Diagnostics - Vital Signs Vital Signs Temp Pulse Resp BP Pulse Ox 07/20/17 16:16 98.7 F 83 16 139/102 98 - Laboratory Lab Statement: Any lab studies that have been ordered have been reviewed, and results considered in the medical decision making process. Abdominal Pain Fem Course/Dx - Course Course Of Treatment: During the course of treament, patient is evaluated for abdominal pain, head pain and back pain s/p fall. There are no discolorations or obvious signs of trauma. On light palpation, she is having LLQ pain and groin pain. Discussed treatment options. She is requesting nausea medication. Will give tramadol for pain and PO challenge. Patient feeling improved and is ambulating well at discharge. She is requesting pain medication for home and is given tramadol and zofran for home. - Diagnoses Provider Diagnoses: Fall Discharge - Discharge Plan Condition: Stable Disposition: HOME Prescriptions: Ondansetron ODT TAB* [Zofran 4 MG Odt TAB*] 4 mg PO Q6H PRN #12 tab.odt MDD 4 PRN Reason: Nausea traMADol TAB* [Ultram*] 50 mg PO Q12H PRN #6 tab MDD 2 PRN Reason: Pain Patient Education Materials: Muscle Strain (ED), Abdominal Pain (ED) Forms: *Work Release Referrals: No Primary Care Phys,NOPCP [Primary Care Provider] - Additional Instructions: Ibuprofen 600mg three times daily as needed for discomfort For any pain not well controlled with ibuprofen, you may use the tramadol for comfort Zofran as needed for nausea
== END | disposition home or self-care (01) ==
LOC: ED 16:09
DX: R10.32 Left lower quadrant pain (principal); M54.5 Low back pain; R11.0 Nausea; E07.9 Disorder of thyroid, unspecified; J45.909 Unspecified asthma, uncomplicated; Z88.1 Allergy status to other antibiotic agents; Z87.891 Personal history of nicotine dependence
CPT/HCPCS: 99282; A9270-GY

== ENCOUNTER 2018-03-18 18:38 | Inpatient (IN) | payer SELFPAY ==
[2018-03-18] MEDS ORDERED: Clindamycin 900 MG IVPREMIX(* 900 MG/50 ML SDV IV ONE (19:24)
[2018-03-18] MEDS ORDERED: Gentamicin ADULT (*) 40 MG/ML VIAL IVPB ONE (19:24)
[2018-03-18] MEDS ORDERED: Ondansetron INJ* 2 MG/ML VIAL IV ONE (19:28)
[2018-03-18] MEDS ORDERED: Morphine VIAL* 4 MG/ML VIAL (1 ml vial) IV ONE (19:31)
[2018-03-18] MEDS ORDERED: NS 0.9% 1000 ML* 1,000 ML IV SCH (19:45)
[2018-03-18 19:50] LABS: ABS Basophils 0 10^3/ul (0-0.2); ABS Eosinophils 0.2 10^3/ul (0-0.6); ABS Lymphocytes 1.1 10^3/ul (1.0-4.8); ABS Monocytes 0.8 10^3/ul (0-0.8); ABS Neutrophils 9.7 10^3/ul (1.5-7.7); ABS Nucleated RBC 0 10^3/ul; Eosinophil % 1.6 % (0-6); Hematocrit 30 % (35-47); Hemoglobin 9.8 g/dl (12.0-16.0); Lymphocyte % 9.2 % (25-47); Mean Corpuscular HGB Conc 33 g/dl (31-36); Mean Corpuscular Hemoglobin 25 pg (27-31); Mean Corpuscular Volume 76 fL (80-97); Mean Platelet Volume 7.3 um3 (7.4-10.4); Nucleated Red Blood Cells % 0.1; Platelet Count 433 10^3/ul (150-450); Red Blood Count 3.88 10^6/ul (4.00-5.40); Red Cell Distribution Width 18 % (10.5-15); White Blood Count 11.8 10^3/ul (3.5-10.8)
[2018-03-18 20:00] LABS: INR 1.24 (0.77-1.02)
[2018-03-18] MEDS ORDERED: Ondansetron 40 MG VIAL* 2 MG/ML 20 ML VIAL IV ONE (20:00)
--- NOTE | 2018-03-18 20:00 | RAD ---
INDICATION: Left-sided tubo-ovarian abscess COMPARISON: CT abdomen pelvis March 15, 2018; pelvic sonogram March 15, 2018 TECHNIQUE: Noncontrast axial source images were acquired from the level hemidiaphragms to the symphysis pubis as part of CT imaging for renal stone. Lung bases: The lung bases are clear. Liver: The liver is normal in size. Noncontrast imaging shows no evidence of a hepatic mass or ductal dilatation. Gallbladder: There are no calcified gallstones. There is no evidence of wall thickening or pericholecystic fluid.. Spleen: The spleen is normal in size. The noncontrast CT appearance is normal. Pancreas: Noncontrast imaging shows no pancreatic mass or ductal dilitation. Adrenal glands: No masses are identified. Kidneys/Bladder: There is no evidence of nephrolithiasis or CT evidence of hydronephrosis. Noncontrast imaging shows no evidence of a renal mass. The bladder is unremarkable.. Adenopathy: There is no evidence of intraperitoneal or retroperitoneal adenopathy. Evaluation is limited without oral contrast. Fluid collections: There are no free or localized fluid collections. Vessels: The aorta and iliac vessels are normal in caliber. There are no significant atherosclerotic changes. The IVC appears normal Pelvic organs: The uterus and right adnexa are normal. There is a low-density mass in left adnexa measuring approximately 8.5 x 4.4 cm, unchanged. This is better evaluated on the ultrasound and on the earlier contrast-enhanced CT. There is not believed to be an appreciable interval change. GI tract: Evaluation of the bowel is limited without oral contrast. The stomach, small bowel, and lower GI tract appear grossly normal. There are no obstructive findings. The appendix is visualized and appears normal. Soft tissues: No soft tissue abnormalities of the extraperitoneal abdomen or pelvis are identified. Osseous structures: There are no acute osseous findings. IMPRESSION: LEFT ADNEXAL MASS WHICH BY EARLIER CONTRAST-ENHANCED IMAGING AND ULTRASONOGRAPHY WAS BELIEVED TO BE RELATED TO A TUBO-OVARIAN ABSCESS. NO SIGNIFICANT CHANGE.
[2018-03-18 20:12] LABS: EGFR Non-African American 79.6 (>60)
[2018-03-18] MEDS ORDERED: GENTAMICIN ADULT IVPB ONE (20:30)
[2018-03-18] MEDS ORDERED: NS 0.9% IVPB ONE (20:30)
[2018-03-18 21:18] LABS: Urine Appearance Cloudy; Urine Blood Negative (Negative); Urine Color Yellow; Urine Ketones Negative (Negative); Urine Protein Negative (Negative); Urine Specific Gravity 1.023 (1.010-1.030); Urine Urobilinogen Negative (Negative)
[2018-03-18] MEDS ORDERED: Gentamicin ADULT per pharmacy 1 NOTE MISC FOLLOW UP PRN (22:11)
--- NOTE | 2018-03-18 22:58 | ED ---
Angel Garcia Natalie, scribed for Ankit Marley MD on 03/18/18 at 1926 . Abdominal Pain/Female - HPI Summary HPI Summary: The patient is a 23 y/o F presenting to [facility] c/o left abd pain and rigidity where she has a recently and diagnosed tubo-ovarian abscess. She came to the ED on 03/15/18 for the pain when she found out she had the abscess by way of CT Abd/Pel. She was then admitted to [facility] under the care of Dr. Ramirez, who discharged her this morning. She has taken IV Clindamycin and Gentamicin to some relief during her stay. She has also taken Oxycodone for mild relief of her pain after she was discharged. She additionally c/o diaphoresis and numbness and pain in her right upper thigh extending to her knee. She denies vaginal discharge, but states her urine is "bright." The pain is rated 10/10 in severity. - History of Current Complaint Chief Complaint: EDFever Stated Complaint: ABD PAIN Hx Obtained From: Patient Hx Last Menstrual Period: 09/08/16 Onset/Duration: Gradual Onset, Lasting Days, Still Present Timing: Constant Severity Initially: Severe Severity Currently: Severe Pain Intensity: 10 Pain Scale Used: 0-10 Numeric Location: Discrete At: LLQ Radiates: No Aggravating Factor(s): Nothing Alleviating Factor(s): Nothing Associated Signs and Symptoms: Positive: Negative - vaginal discharge, Diaphoresis, Other: - "bright urine", numbness and pain in right upper thigh to knee Allergies/Adverse Reactions: Allergies Allergy/AdvReac Type Severity Reaction Status Date / Time amoxicillin Allergy Rash And Verified 03/15/18 09:47 Itching cefadroxil Allergy Hives Verified 03/15/18 09:47 clindamycin Allergy Nausea And Verified 03/15/18 09:47 Vomiting PMH/Surg Hx/FS Hx/Imm Hx Endocrine/Hematology History: Reports: Hx Thyroid Disease Denies: Hx Diabetes Cardiovascular History: Denies: Hx Hypertension Respiratory History: Reports: Hx Asthma Denies: Hx Chronic Obstructive Pulmonary Disease (COPD) GI History: Denies: Hx Ulcer Sensory History: Denies: Hx Contacts or Glasses, Hx Hearing Aid Opthamlomology History: Denies: Hx Contacts or Glasses Neurological History: Denies: Other Neuro Impairments/Disorders Psychiatric History: Reports: Hx Eating Disorder - binging & purging age 11-18 Denies: Hx of Violent Episodes Against Others - Surgical History Surgery Procedure, Year, and Place: wisdom teeth extraction 2013 Hx Anesthesia Reactions: No Infectious Disease History: No Infectious Disease History: Reports: Hx Clostridium Difficile - 2014 Denies: Hx Hepatitis, Hx Human Immunodeficiency Virus (HIV), Hx of Known/ Suspected MRSA, Hx Shingles, Hx Tuberculosis, Hx Known/Suspected VRE, Hx Known/ Suspected VRSA, History Other Infectious Disease, Traveled Outside the [place] in Last 30 Days - Family History Known Family History: Positive: Hypertension, Diabetes, Respiratory Disease - asthma - Social History Alcohol Use: None Hx Substance Use: Yes Substance Use Type: Reports: None Substance Use Comment - Amount & Last Used: Prior to Hx Tobacco Use: No Smoking Status (MU): Former Smoker Type: Cigarettes Amount Used/How Often: up to 2 cigs weekly Have You Smoked in the Last Year: No Review of Systems Positive: Skin Diaphoresis Positive: Abdominal Pain - left abd pain and rigidity Positive: other - "bright" urine. Negative: discharge Positive: Other - numbness and pain in right upper thigh extending to knee All Other Systems Reviewed And Are Negative: Yes Physical Exam - Summary Physical Exam Summary: Appearance: Visibly uncomfortable, Obese Skin: Warm Eyes: Normal ENT: Normal Neck: Supple, nontender Respiratory: Clear to auscultation Cardiovascular: Regular rate, regular rhythm. Normal S1, S2. Abdomen: Soft, moderate left pelvic pain radiating to left anterior thigh Musculoskeletal: Normal, Strength/ROM Intact Neurological: Normal, A&Ox3 Psychiatric: Normal General: Mild distress, complaining of pain Triage Information Reviewed: Yes Vital Signs On Initial Exam: Initial Vitals Temp Pulse Resp BP Pulse Ox 98.3 F 112 24 152/87 97 03/18/18 18:46 03/18/18 18:46 03/18/18 18:46 03/18/18 18:46 03/18/18 18:46 Vital Signs Reviewed: Yes Diagnostics - Vital Signs Vital Signs Temp Pulse Resp BP Pulse Ox 03/18/18 18:46 98.3 F 112 24 152/87 97 - Laboratory Lab Results: Lab Results 03/18/18 03/18/18 03/18/18 Range/Units 19:35 19:35 19:35 WBC 11.8 H (3.5-10.8) 10^3/ul RBC 3.88 L (4.00-5.40) 10^6/ul Hgb 9.8 L (12.0-16.0) g/dl Hct 30 L (35-47) % MCV 76 L (80-97) fL MCH 25 L (27-31) pg MCHC 33 (31-36) g/dl RDW 18 H (10.5-15) % Plt Count 433 (150-450) 10^3/ul MPV 7.3 L (7.4-10.4) um3 Neut % (Auto) 82.3 (38-83) % Lymph % (Auto) 9.2 L (25-47) % [place] % (Auto) 6.6 (0-7) % Eos % (Auto) 1.6 (0-6) % Baso % (Auto) 0.3 (0-2) % Absolute Neuts (auto) 9.7 H (1.5-7.7) 10^3/ul Absolute Lymphs (auto) 1.1 (1.0-4.8) 10^3/ul Absolute Monos (auto) 0.8 (0-0.8) 10^3/ul Absolute Eos (auto) 0.2 (0-0.6) 10^3/ul Absolute Basos (auto) 0 (0-0.2) 10^3/ul Absolute Nucleated RBC 0 10^3/ul Nucleated RBC % 0.1 INR (Anticoag Therapy) 1.24 H (0.77-1.02) APTT 31.9 (26.0-36.3) seconds Sodium (135-145) mmol/L Potassium (3.5-5.0) mmol/L Chloride (101-111) mmol/L Carbon Dioxide (22-32) mmol/L Anion Gap (2-11) mmol/L BUN (6-24) mg/dL Creatinine (0.51-0.95) mg/dL Est GFR ( Amer) (>60) Est GFR (Non-Af Amer) (>60) BUN/Creatinine Ratio (8-20) Glucose (70-100) mg/dL Lactic Acid (0.5-2.0) mmol/L Calcium (8.6-10.3) mg/dL Total Bilirubin (0.2-1.0) mg/dL AST (13-39) U/L ALT (7-52) U/L Alkaline Phosphatase (34-104) U/L Troponin I (<0.04) ng/mL Total Protein (6.4-8.9) g/dL Albumin (3.2-5.2) g/dL Globulin (2-4) g/dL Albumin/Globulin Ratio (1-3) Urine Color Yellow Urine Appearance Cloudy Urine pH 6.0 (5-9) Ur Specific [place] 1.023 (1.010-1.030) Urine Protein Negative (Negative) Urine Ketones Negative (Negative) Urine Blood Negative (Negative) Urine Nitrate Negative (Negative) Urine Bilirubin Negative (Negative) Urine Urobilinogen Negative (Negative) Ur Leukocyte Esterase 2+ A (Negative) Urine WBC (Auto) 2+(11-20/hpf) A (Absent) Urine RBC (Auto) 1+(3-5/hpf) A (Absent) Ur Squamous Epith Cells Present A (Absent) Urine Bacteria Absent (Absent) Urine Glucose Negative (Negative) 03/18/18 03/18/18 Range/Units 19:35 19:35 WBC (3.5-10.8) 10^3/ul RBC (4.00-5.40) 10^6/ul Hgb (12.0-16.0) g/dl Hct (35-47) % MCV (80-97) fL MCH (27-31) pg MCHC (31-36) g/dl RDW (10.5-15) % Plt Count (150-450) 10^3/ul MPV (7.4-10.4) um3 Neut % (Auto) (38-83) % Lymph % (Auto) (25-47) % [place] % (Auto) (0-7) % Eos % (Auto) (0-6) % Baso % (Auto) (0-2) % Absolute Neuts (auto) (1.5-7.7) 10^3/ul Absolute Lymphs (auto) (1.0-4.8) 10^3/ul Absolute Monos (auto) (0-0.8) 10^3/ul Absolute Eos (auto) (0-0.6) 10^3/ul Absolute Basos (auto) (0-0.2) 10^3/ul Absolute Nucleated RBC 10^3/ul Nucleated RBC % INR (Anticoag Therapy) (0.77-1.02) APTT (26.0-36.3) seconds Sodium 138 (135-145) mmol/L Potassium 3.6 (3.5-5.0) mmol/L Chloride 102 (101-111) mmol/L Carbon Dioxide 27 (22-32) mmol/L Anion Gap 9 (2-11) mmol/L BUN 8 (6-24) mg/dL Creatinine 0.88 (0.51-0.95) mg/dL Est GFR ( Amer) 96.4 (>60) Est GFR (Non-Af Amer) 79.6 (>60) BUN/Creatinine Ratio 9.1 (8-20) Glucose 120 H (70-100) mg/dL Lactic Acid 1.2 (0.5-2.0) mmol/L Calcium 9.1 (8.6-10.3) mg/dL Total Bilirubin 0.30 (0.2-1.0) mg/dL AST 10 L (13-39) U/L ALT 12 (7-52) U/L Alkaline Phosphatase 74 (34-104) U/L Troponin I 0.00 (<0.04) ng/mL Total Protein 7.2 (6.4-8.9) g/dL Albumin 3.5 (3.2-5.2) g/dL Globulin 3.7 (2-4) g/dL Albumin/Globulin Ratio 0.9 L (1-3) Urine Color Urine Appearance Urine pH (5-9) Ur Specific [place] (1.010-1.030) Urine Protein (Negative) Urine Ketones (Negative) Urine Blood (Negative) Urine Nitrate (Negative) Urine Bilirubin (Negative) Urine Urobilinogen (Negative) Ur Leukocyte Esterase (Negative) Urine WBC (Auto) (Absent) Urine RBC (Auto) (Absent) Ur Squamous Epith Cells (Absent) Urine Bacteria (Absent) Urine Glucose (Negative) Result Diagrams: 03/18/18 19:35 03/18/18 19:35 Lab Statement: Any lab studies that have been ordered have been reviewed, and results considered in the medical decision making process. - CT Abd/Pel CT CT Interpretation: No Acute Changes - No soft tissue abnormalities of the extraperitoneal abdomen or pelvis are identified. ED physician has reviewed this report. CT Interpretation Completed By: Radiologist Abdominal Pain Fem Course/Dx - Course Course Of Treatment: Labs WNL, repeat CT abd shows TOA that is decreased in size from previous (from 9cm to 8cm approximately). Pt is homeless per relative and has no place to rest to properly convalesce and her pain is still not controlled. Discussed case with Dr Rhodes about admitting pt for better pain control for her TOA and to assign ed case manager to get pt situated socially. - Diagnoses Provider Diagnoses: TOA (tubo-ovarian abscess), Intractable abdominal pain Discharge - Sign-Out/Discharge Documenting (check all that apply): Sign-Out Patient Signing out patient TO: aFisal Dawkins - The pt will be a sign-out to Dr. Dawkins at shift change, pending admittance to [facility] by Dr. Rhodes. - Discharge Plan Condition: Stable Disposition: ADMITTED TO [facility] - Billing Disposition and Condition Condition: STABLE Disposition: Admitted to [facility] The documentation as recorded by the Angel lizarraga Natalie accurately reflects the service I personally performed and the decisions made by , Ankit Marley MD.
[2018-03-19] MEDS: oxyCODONE/Acetamin 5/325 MG* TAB PO PRN ×3 (01:00→20:37)
[2018-03-19] MEDS: HYDROmorphone INJ* 2 MG/ML CARPUJECT SYRINGE IV SLOW PU PRN ×2 (01:01→10:54)
[2018-03-19] MEDS ORDERED: GENTAMICIN ADULT IVPB ONE (03:00)
[2018-03-19] MEDS ORDERED: NS 0.9% IVPB ONE (03:00)
[2018-03-19] MEDS: Clindamycin 900 MG IVPREMIX(* 900 MG/50 ML SDV IV SCH ×3 (06:10→21:57)
[2018-03-19 06:13] LABS: Hematocrit 30 % (35-47); Hemoglobin 9.2 g/dl (12.0-16.0); Mean Corpuscular HGB Conc 31 g/dl (31-36); Mean Corpuscular Hemoglobin 24 pg (27-31); Mean Corpuscular Volume 77 fL (80-97); Platelet Count 411 10^3/ul (150-450); Red Blood Count 3.82 10^6/ul (4.00-5.40); Red Cell Distribution Width 18 % (10.5-15); White Blood Count 12.3 10^3/ul (3.5-10.8)
[2018-03-19] MEDS: Ibuprofen TAB* 600 MG PO PRN ×2 (07:54→19:23)
[2018-03-19] MEDS ORDERED: Gentamicin Trough Level 1 NOTE MISC FOLLOW UP ONE (11:00)
[2018-03-19] MEDS ORDERED: Ondansetron 40 MG VIAL* 2 MG/ML 20 ML VIAL IV PRN (12:01)
[2018-03-20] MEDS ORDERED: GENTAMICIN ADULT IVPB SCH (03:00)
[2018-03-20] MEDS ORDERED: NS 0.9% IVPB SCH (03:00)
[2018-03-20 05:43] LABS: ABS Basophils 0 10^3/ul (0-0.2); ABS Eosinophils 0.3 10^3/ul (0-0.6); ABS Lymphocytes 1.1 10^3/ul (1.0-4.8); ABS Monocytes 1.1 10^3/ul (0-0.8); ABS Neutrophils 10.7 10^3/ul (1.5-7.7); ABS Nucleated RBC 0 10^3/ul; Eosinophil % 2.2 % (0-6); Hematocrit 30 % (35-47); Hemoglobin 9.5 g/dl (12.0-16.0); Lymphocyte % 8.2 % (25-47); Mean Corpuscular HGB Conc 32 g/dl (31-36); Mean Corpuscular Hemoglobin 25 pg (27-31); Mean Corpuscular Volume 77 fL (80-97); Nucleated Red Blood Cells % 0; Platelet Count 452 10^3/ul (150-450); Red Blood Count 3.88 10^6/ul (4.00-5.40); Red Cell Distribution Width 18 % (10.5-15); White Blood Count 13.2 10^3/ul (3.5-10.8)
[2018-03-20] MEDS: Clindamycin 900 MG IVPREMIX(* 900 MG/50 ML SDV IV SCH (05:55)
[2018-03-20 05:59] LABS: EGFR Non-African American 92.9 (>60)
[2018-03-20] MEDS ORDERED: Levofloxacin TAB* 500 MG PO SCH (09:00)
[2018-03-20] MEDS ORDERED: metroNIDAZOLE TAB* 250 MG PO SCH (09:00)
[2018-03-20] MEDS: DOXYcycline CAP(*) 100 MG PO SCH ×2 (10:21→20:13)
[2018-03-20] MEDS: Aztreonam (*) 2 GM in NS 0.9% 50 ML* 50 ML IVPB SCH ×2 (11:31→22:22)
[2018-03-20] MEDS: oxyCODONE/Acetamin 5/325 MG* TAB PO PRN ×2 (12:48→20:13)
--- NOTE | 2018-03-20 14:08 | CONS ---
CONSULTATION REPORT: DATE OF CONSULT: 03/20/18. REQUESTING PHYSICIAN: Dr. Rhodes. CONSULTING SERVICE: Infectious Disease. REASON FOR CONSULTATION: Tuboovarian abscess. IMPRESSION: 1. Tuboovarian abscess, likely polymicrobial including bowel radha, E. coil, gardnerella a consideration as well. She had been improving on IV antibiotics and then had increase in her symptoms as well as leukocytosis when transitioned to oral therapy. 2. Cystitis, E. coli, multidrug resistant. 3. Multiple drug allergies including AMOXICILLIN caused rash and CEFADROXIL cause serum sickness. 4. Morbid obesity. RECOMMENDATION: 1. Continue doxycycline and Flagyl. Add aztreonam 2 g every 12 hours to augment gram-negative coverage, follow her white count, CRP as well as her symptoms. 2. She has a Social Work consult for health insurance and help with living situation. HISTORY OF PRESENT ILLNESS: This 23-year-old woman with morbid obesity, admitted with left lower quadrant pain. She had been here earlier in the week when that pain initially developed as well as some low back pain all the way across her back. She came to the hospital on the . She had a white blood cell count of 23,000. She had a low-grade fever, some chills. She was started on clindamycin and gentamicin, which she tolerated well. She had improvement in her overall pain as well as leukocytosis. CT of the abdomen and pelvis and pelvic ultrasound showed a left tuboovarian abscess. The ER attending did a pelvic exam and showed purulent drainage from the cervix as well, came back positive for gardnerella. Urine culture grew greater than 10,000 colonies of E. coli resistant to penicillin, cephalosporins, fluoroquinolones. She left the hospital for some amount of time, but returned with worsening pain on the day of discharge. The CT of the abdomen and pelvis was repeated and the collection around the left ovary was unchanged. She has been afebrile here. She had been eating and drinking, moving her bowels. She has ongoing diffuse abdominal pain, a little bit worse on the left lower quadrant than else where. That back pain has gone. She has had no urinary frequency or dysuria. Some odor with urination. Urine culture was repeated, which was negative. Blood cultures are negative on admission. She has not had an infection requiring hospitalization in the past. PAST MEDICAL HISTORY: Morbid obesity. ALLERGIES: AMOXICILLIN caused rash, CEFADROXIL caused serum sickness, CLINDAMYCIN caused GI upset. MEDICATIONS: 1. Doxycycline 100 mg by mouth twice day. 2. Flagyl 500 mg by mouth twice a day. 3. Vicodin as needed. 4. Ibuprofen as needed. SOCIAL HISTORY: She is currently homeless, living in the [place] area. No travel, no injection drugs. FAMILY HISTORY: No recurrent infections. REVIEW OF SYSTEMS: All negative to 14-point review of systems, except as noted above in the history of present illness. PHYSICAL EXAM: Vital Signs: Temperature is 36.6, heart rate 70, respiratory rate 20, blood pressure 145/55 and oxygen saturation 100% on room air. General : She is awake, not in distress. Neurologic: She is oriented x3, follows all commands, moves all extremities. HEENT: There is no conjunctival hemorrhage. Oropharynx without lesions. There is no thrush. Neck is supple without mass. Lymph Nodes: There is no cervical, supraclavicular, inguinal, axillary or epitrochlear lymphadenopathy. Heart has regular rate and rhythm without murmurs , rubs or gallops. Lungs are clear to auscultation bilaterally. Abdomen: There are bowel sounds present. There is left lower quadrant tenderness to palpation. There is also some less severe diffuse tenderness in the right lower and left upper quadrants. Musculoskeletal: There is no spine tenderness to palpation or CVA tenderness. Skin: There is no rash including under the pannus. LABORATORY DATA: White blood cell count 13, hemoglobin 9, platelets 452. Creatinine is 0.7. Please see impressions and recommendations as outlined above , which I have discussed with Dr. Craig. Thank you for asking me to see Ms. Merlos in consultation. [id number]/[facility] #: [id number] [facility]Iron
[2018-03-20] MEDS: Ibuprofen TAB* 600 MG PO PRN (18:39)
[2018-03-20] MEDS: metroNIDAZOLE TAB* 250 MG PO SCH (20:13)
[2018-03-20] MEDS ORDERED: NS 0.9% 50 ML* 50 ML ONE (22:19)
[2018-03-21 07:23] LABS: EGFR Non-African American 97.3 (>60)
[2018-03-21] MEDS: Prochlorperazine TAB* 10 MG PO PRN ×2 (08:51→20:28)
[2018-03-21] MEDS: DOXYcycline CAP(*) 100 MG PO SCH ×2 (09:32→20:14)
[2018-03-21] MEDS: metroNIDAZOLE TAB* 250 MG PO SCH ×2 (09:32→20:14)
--- NOTE | 2018-03-21 10:23 | PN ---
Progress Note - Progress Note Date of Service: 03/21/18 SOAP: Subjective: []Patient states she is still having LLQ abdominal pain (8/10) and nausea, no vomiting, no fever/chills, no other GI s/sx, Objective: [ Vital Signs Temp Pulse Resp BP Pulse Ox 98.0 F 67 16 134/56 100 03/21/18 03:33 03/21/18 03:33 03/21/18 03:33 03/21/18 03:33 03/21/18 03:33 ] Laboratory Results - last 24 hr 03/21/18 05:56 BUN 11 Creatinine 0.74 Est GFR ( Amer) 117.7 Est GFR (Non-Af Amer) 97.3 Laboratory Tests 03/18/18 03/18/18 03/18/18 19:35 19:35 19:35 WBC 11.8 H RBC 3.88 L Hgb 9.8 L Hct 30 L MCV 76 L MCH 25 L MCHC 33 RDW 18 H Plt Count 433 MPV 7.3 L Neut % (Auto) 82.3 Lymph % (Auto) 9.2 L Major % (Auto) 6.6 Eos % (Auto) 1.6 Baso % (Auto) 0.3 Absolute Neuts (auto) 9.7 H Absolute Lymphs (auto) 1.1 Absolute Monos (auto) 0.8 Absolute Eos (auto) 0.2 Absolute Basos (auto) 0 Absolute Nucleated RBC 0 Nucleated RBC % 0.1 INR (Anticoag Therapy) 1.24 H APTT 31.9 Sodium Potassium Chloride Carbon Dioxide Anion Gap BUN Creatinine Est GFR ( Amer) Est GFR (Non-Af Amer) BUN/Creatinine Ratio Glucose Lactic Acid Calcium Total Bilirubin AST ALT Alkaline Phosphatase Troponin I Total Protein Albumin Globulin Albumin/Globulin Ratio Urine Color Yellow Urine Appearance Cloudy Urine pH 6.0 Ur Specific [place] 1.023 Urine Protein Negative Urine Ketones Negative Urine Blood Negative Urine Nitrate Negative Urine Bilirubin Negative Urine Urobilinogen Negative Ur Leukocyte Esterase 2+ A Urine WBC (Auto) 2+(11-20/hpf) A Urine RBC (Auto) 1+(3-5/hpf) A Ur Squamous Epith Cells Present A Urine Bacteria Absent Urine Glucose Negative Random Gentamicin 03/18/18 03/18/18 03/19/18 19:35 19:35 05:45 WBC 12.3 H RBC 3.82 L Hgb 9.2 L Hct 30 L MCV 77 L MCH 24 L MCHC 31 RDW 18 H Plt Count 411 MPV 7.0 L Neut % (Auto) Lymph % (Auto) Major % (Auto) Eos % (Auto) Baso % (Auto) Absolute Neuts (auto) Absolute Lymphs (auto) Absolute Monos (auto) Absolute Eos (auto) Absolute Basos (auto) Absolute Nucleated RBC Nucleated RBC % INR (Anticoag Therapy) APTT Sodium 138 Potassium 3.6 Chloride 102 Carbon Dioxide 27 Anion Gap 9 BUN 8 Creatinine 0.88 Est GFR ( Amer) 96.4 Est GFR (Non-Af Amer) 79.6 BUN/Creatinine Ratio 9.1 Glucose 120 H Lactic Acid 1.2 Calcium 9.1 Total Bilirubin 0.30 AST 10 L ALT 12 Alkaline Phosphatase 74 Troponin I 0.00 Total Protein 7.2 Albumin 3.5 Globulin 3.7 Albumin/Globulin Ratio 0.9 L Urine Color Urine Appearance Urine pH Ur Specific [place] Urine Protein Urine Ketones Urine Blood Urine Nitrate Urine Bilirubin Urine Urobilinogen Ur Leukocyte Esterase Urine WBC (Auto) Urine RBC (Auto) Ur Squamous Epith Cells Urine Bacteria Urine Glucose Random Gentamicin 03/19/18 03/19/18 03/20/18 05:45 10:31 05:05 WBC 13.2 H RBC 3.88 L Hgb 9.5 L Hct 30 L MCV 77 L MCH 25 L MCHC 32 RDW 18 H Plt Count 452 H MPV 7.0 L Neut % (Auto) 81.1 Lymph % (Auto) 8.2 L Major % (Auto) 8.3 H Eos % (Auto) 2.2 Baso % (Auto) 0.2 Absolute Neuts (auto) 10.7 H Absolute Lymphs (auto) 1.1 Absolute Monos (auto) 1.1 H Absolute Eos (auto) 0.3 Absolute Basos (auto) 0 Absolute Nucleated RBC 0 Nucleated RBC % 0 INR (Anticoag Therapy) APTT Sodium Potassium Chloride Carbon Dioxide Anion Gap BUN 7 Creatinine 0.71 Est GFR ( Amer) 123.4 Est GFR (Non-Af Amer) 102.0 BUN/Creatinine Ratio Glucose Lactic Acid Calcium Total Bilirubin AST ALT Alkaline Phosphatase Troponin I Total Protein Albumin Globulin Albumin/Globulin Ratio Urine Color Urine Appearance Urine pH Ur Specific [place] Urine Protein Urine Ketones Urine Blood Urine Nitrate Urine Bilirubin Urine Urobilinogen Ur Leukocyte Esterase Urine WBC (Auto) Urine RBC (Auto) Ur Squamous Epith Cells Urine Bacteria Urine Glucose Random Gentamicin 2.5 03/20/18 03/21/18 05:05 05:56 WBC RBC Hgb Hct MCV MCH MCHC RDW Plt Count MPV Neut % (Auto) Lymph % (Auto) Major % (Auto) Eos % (Auto) Baso % (Auto) Absolute Neuts (auto) Absolute Lymphs (auto) Absolute Monos (auto) Absolute Eos (auto) Absolute Basos (auto) Absolute Nucleated RBC Nucleated RBC % INR (Anticoag Therapy) APTT Sodium Potassium Chloride Carbon Dioxide Anion Gap BUN 8 11 Creatinine 0.77 0.74 Est GFR ( Amer) 112.4 117.7 Est GFR (Non-Af Amer) 92.9 97.3 BUN/Creatinine Ratio Glucose Lactic Acid Calcium Total Bilirubin AST ALT Alkaline Phosphatase Troponin I Total Protein Albumin Globulin Albumin/Globulin Ratio Urine Color Urine Appearance Urine pH Ur Specific [place] Urine Protein Urine Ketones Urine Blood Urine Nitrate Urine Bilirubin Urine Urobilinogen Ur Leukocyte Esterase Urine WBC (Auto) Urine RBC (Auto) Ur Squamous Epith Cells Urine Bacteria Urine Glucose Random Gentamicin Current Medications Doxycycline Hyclate (Vibramycin Cap(*)) 100 mg PO BID [facility] Last Admin: 03/21/18 09:32 Dose: 100 mg Aztreonam 2 gm/ Sodium (Chloride) 50 mls @ 200 mls/hr IVPB Q12H [facility] Last Admin: 03/20/18 22:22 Dose: 200 mls/hr Ibuprofen (Motrin Tab*) 600 mg PO Q6H PRN PRN Reason: PAIN Last Admin: 03/20/18 18:39 Dose: 600 mg Metronidazole (Flagyl Tab*) 500 mg PO BID [facility] Last Admin: 03/21/18 09:32 Dose: 500 mg Oxycodone/Acetaminophen (Percocet 5/325 Tab*) 1 tab PO Q4H PRN PRN Reason: PAIN Last Admin: 03/20/18 20:13 Dose: 1 tab Prochlorperazine (Compazine Tab*) 10 mg PO Q8H PRN PRN Reason: NAUSEA Last Admin: 03/21/18 08:51 Dose: 10 mg Lungs CTA B/L CV RRR Abdomen Soft, ND, NABS LLQ tenderness on palpation, no rebound or guarding. Assessment: [23 y/o readmitted on 03/18/18 for symptomatic left TOA on triple antibiotics, she is afebrile but with persisitent pain and an elevated WBC.] Plan: [Continue current treatment, repeat CBC this am. Patient is morbidly obese if pt does not improve on antibiotic treatment alone a consideration should be given to surgical intervention.]
[2018-03-21 11:50] LABS: ABS Basophils 0.1 10^3/ul (0-0.2); ABS Eosinophils 0.2 10^3/ul (0-0.6); ABS Monocytes 0.8 10^3/ul (0-0.8); ABS Neutrophils 10.4 10^3/ul (1.5-7.7); ABS Nucleated RBC 0 10^3/ul; Eosinophil % 1.7 % (0-6); Hematocrit 33 % (35-47); Hemoglobin 10.6 g/dl (12.0-16.0); Mean Corpuscular HGB Conc 32 g/dl (31-36); Mean Corpuscular Hemoglobin 25 pg (27-31); Mean Corpuscular Volume 76 fL (80-97); Mean Platelet Volume 6.9 um3 (7.4-10.4); Nucleated Red Blood Cells % 0; Platelet Count 576 10^3/ul (150-450); Red Blood Count 4.31 10^6/ul (4.00-5.40); Red Cell Distribution Width 18 % (10.5-15); White Blood Count 12.5 10^3/ul (3.5-10.8)
[2018-03-21] MEDS: oxyCODONE/Acetamin 5/325 MG* TAB PO PRN ×2 (13:13→20:13)
[2018-03-21] MEDS: Aztreonam (*) 2 GM in NS 0.9% 50 ML* 50 ML IVPB SCH ×2 (13:14→23:21)
[2018-03-22 06:27] LABS: EGFR Non-African American 88.9 (>60)
[2018-03-22] MEDS: DOXYcycline CAP(*) 100 MG PO SCH (08:15)
[2018-03-22] MEDS: metroNIDAZOLE TAB* 250 MG PO SCH (08:15)
--- NOTE | 2018-03-22 09:18 | PN ---
Progress Note - Progress Note Date of Service: 03/22/18 SOAP: Subjective: CC: ovarian abscess HPI: 23 year old woman with left tubo-ovarian abscess; abd pain decreasing, now mostly LLQ and less severe. Some yellow vaginal discharge for last day. No fever or chills. Appetite ok. Objective: Vital Signs Temp 36.8 C 03/22/18 03:12 Pulse 91 03/22/18 03:12 Resp 18 03/22/18 03:12 BP 141/65 03/22/18 03:12 Pulse Ox 99 03/22/18 03:12 Intake & Output 03/21/18 03/22/18 03/22/18 18:59 06:59 18:59 Intake Total 940 304 Output Total 1050 950 Balance -110 -646 Intake: IV Fluids 54 Aztreonam 54 Oral 940 250 Output: Urine 1050 950 Other: # Bowel Movements 0 Gen:awake, no distress HEENT: no thrush Heart:RRR no murmur Lungs:CTA BL Abd:+BS no rebound, +LLQ tenderness, no other tenderness Skin: no rash Assessment: 1. left tubo-ovarian abscess, improving 2. morbid obesity 3. elevated CRP due to #1 Plan: 1. continue doxy/flagyl/aztreonam day 4; bactrim DS TID and flagyl 500 mg BID for 10 days when ready for discharge
[2018-03-22] MEDS: Aztreonam (*) 2 GM in NS 0.9% 50 ML* 50 ML IVPB SCH (10:47)
--- NOTE | 2018-03-22 11:27 | PN ---
Progress Note - Progress Note Date of Service: 03/22/18 SOAP: Subjective: [] 23 yo with a TOA with steady clinical improvement. pain gets worse at times but is only on oral pain meds now. D/w Dr Song who feels she can go home on bactrim and flagyl. pt is eating and up and around. awaiting resolution of social service Objective: []vitals stabel she is afebrile abdomen soft , no rebound no guarding extremities nontender wbc 12 Assessment: [hospital Day # 5 since readmission/ 7 since initial admission] Plan: [will continue iv antibiotics until she goes home however she clinically ready for discharge .]
[2018-03-22 13:13] VITALS: BP 133/64
[2018-03-22] MEDS ORDERED: Sulfamethox/Trimethoprim DS 800/160* TAB PO SCH (14:00)
== END 2018-03-22 15:00 | disposition home or self-care (01) | DRG 758 ==
LOC: ED 18:38 → SSU 22:16 → OBSVTOIN 03-20 14:30
PROVIDERS: ADMIT Obstetrics & Gynecology; ATTEND Obstetrics & Gynecology
DX: N70.03 Acute salpingitis and oophoritis (principal); Z68.43 Body mass index [BMI] 50.0-59.9, adult; J45.909 Unspecified asthma, uncomplicated; F41.9 Anxiety disorder, unspecified; F32.9 Major depressive disorder, single episode, unspecified; F50.81 Binge eating disorder; E66.01 Morbid (severe) obesity due to excess calories; N30.90 Cystitis, unspecified without hematuria; B96.20 Unspecified Escherichia coli [E. coli] as the cause of diseases classified elsewhere; E03.9 Hypothyroidism, unspecified; M54.30 Sciatica, unspecified side; Z80.1 Family history of malignant neoplasm of trachea, bronchus and lung; Z86.19 Personal history of other infectious and parasitic diseases; Z81.1 Family history of alcohol abuse and dependence; Z88.1 Allergy status to other antibiotic agents; Z88.0 Allergy status to penicillin; Z88.8 Allergy status to other drugs, medicaments and biological substances; Z87.891 Personal history of nicotine dependence; Z82.49 Family history of ischemic heart disease and other diseases of the circulatory system; Z83.3 Family history of diabetes mellitus; Z82.5 Family history of asthma and other chronic lower respiratory diseases; Z59.0 Homelessness
CPT/HCPCS: 36415; 74176; 80053; 80170; 81003; 81015; 82565; 83605; 84484; 84520; 85025; 85027; 85610; 85730; 86140; 87040; 87086; 99283; A9270-GY; G0378; J1170; J1580; J2270; J2405; Q0164

== ENCOUNTER 2018-05-20 09:16 | Emergency (ER) | payer MEDICAID, OTHER ==
[2018-05-20 10:10] VITALS: BP 133/44
--- NOTE | 2018-05-20 10:19 | UC ---
Respiratory Complaint HPI - HPI Summary HPI Summary: 23 yo female presents with cough, chest congestion, and sinus pressure/ congestion for the last 3 days. She tells me that she has a history of asthma and "knows she just gets more sick" unless treated. She has been using her albuterol inhaler with good relief, but her symptoms soon return. Denies fever, chills, SOB, chest pain, abdominal pain, n/v. She is still smoking daily - History of Current Complaint Chief Complaint: UCRespiratory Stated Complaint: CONGESTED,COUGH Time Seen by Provider: 05/20/18 10:18 Hx Obtained From: Patient Hx Last Menstrual Period: 09/08/16 Onset/Duration: Gradual Onset Severity Initially: Mild Severity Currently: Mild Pain Intensity: 2 Pain Scale Used: 0-10 Numeric Character: Cough: Nonproductive - Allergies/Home Medications Allergies/Adverse Reactions: Allergies Allergy/AdvReac Type Severity Reaction Status Date / Time amoxicillin Allergy Rash And Verified 05/20/18 10:10 Itching cefadroxil Allergy Hives Verified 05/20/18 10:10 clindamycin Allergy Nausea And Verified 05/20/18 10:10 Vomiting Home Medications: Home Medications Benzonatate CAP* [Tessalon 100 MG CAP*] 100 mg PO TID 05/20/18 [History Confirmed 05/20/18] PMH/Surg Hx/FS Hx/Imm Hx - Additional Past Medical History Additional PMH: Asthma Other History Of: Negative For: Anticoagulant Therapy - Surgical History Surgical History: Yes Surgery Procedure, Year, and Place: wisdom teeth extraction 2012 - Family History Known Family History: Positive: Hypertension, Diabetes, Respiratory Disease - asthma - Social History Lives: With Family Alcohol Use: Occasionally Substance Use Type: Marijuana Substance Use Comment - Amount & Last Used: once a month Smoking Status (MU): Light Every Day Tobacco Smoker Type: Cigarettes Amount Used/How Often: up to 2 cigs weekly Have You Smoked in the Last Year: No When Did the Patient Quit Smoking/Using Tobacco: 2013 Household Exposure Type: Cigarettes - Immunization History Most Recent Influenza Vaccination: Not utd Most Recent Tetanus Shot: UKN Most Recent Pneumonia Vaccination: NONE Review of Systems Constitutional: Negative Skin: Negative Eyes: Negative ENT: Sinus Congestion Respiratory: Cough Cardiovascular: Negative Gastrointestinal: Negative Neurological: Negative Psychological: Negative All Other Systems Reviewed And Are Negative: Yes Physical Exam - Summary Physical Exam Summary: GENERAL: NAD. WDWN. No pain distress. SKIN: No rashes, sores, lesions, or open wounds. HEENT: Head: AT/NC Eyes: Conjunctiva clear without inflammation or discharge. Ears: Hearing grossly normal. TMs intact, no bulging, erythema, or edema. Nose: Nasal mucosa pink and moist. NTTP maxillary and frontal sinus. Throat: Posterior oropharynx without exudates, erythema, or tonsillar enlargement. Uvula midline. NECK: Supple. Nontender. No lymphadenopathy. CHEST: Mild wheezing throughout. No r/r. No accessory muscle use. Breathing comfortably and in no distress. CV: RRR. Without m/r/g. Pulses intact. Cap refill <2seconds NEURO: Alert. CN II-XII grossly intact. PSYCH: Age appropriate behavior. Triage Information Reviewed: Yes Vital Signs: Initial Vital Signs Temp 98.1 F 05/20/18 10:05 Pulse 77 05/20/18 10:05 Resp 18 05/20/18 10:05 BP 133/44 05/20/18 10:05 Pulse Ox 100 05/20/18 10:05 Vital Signs Reviewed: Yes Diagnostic Evaluation - Laboratory O2 Sat by Pulse Oximetry: 100 Respiratory Course/Dx - Course Course Of Treatment: Asthma exacerbation vs bronchitis. Declined nebulizer and steroids at this time. - Differential Dx/Diagnosis Provider Diagnoses: Bronchitis Discharge - Sign-Out/Discharge Documenting (check all that apply): Patient Departure All imaging exams completed and their final reports reviewed: No Studies - Discharge Plan Condition: Stable Disposition: HOME Prescriptions: Azithromycin TAB* [Zithromax TAB (Z-ADRY) 250 mg #6 tabs] 2 tab PO .TODAY, THEN 1 DAILY #1 adry Benzonatate CAP* [Tessalon 100 MG CAP*] 100 mg PO TID PRN #21 cap PRN Reason: Cough Patient Education Materials: Ear Infection (ED), Acute Bronchitis (ED) Forms: *Work Release Referrals: No Primary Care Phys,NOPCP [Primary Care Provider] - Additional Instructions: If you develop a fever, shortness of breath, chest pain, new or worsening symptoms - please call your PCP or go to the ED. - Billing Disposition and Condition Condition: STABLE Disposition: Home
== END 2018-05-20 10:53 | disposition home or self-care (01) ==
LOC: UCEAST 09:16
DX: J40 Bronchitis, not specified as acute or chronic (principal); F17.210 Nicotine dependence, cigarettes, uncomplicated
CPT/HCPCS: 99212; G0463

== ENCOUNTER 2018-07-17 15:42 | Emergency (ER) | payer OTHER ==
[2018-07-17 15:53] VITALS: BP 130/71
--- NOTE | 2018-07-17 16:08 | UC ---
General HPI - HPI Summary HPI Summary: This patient is a 23 year old F [place] [facility] [place] chief complaint of a general illness for the last 3 days. The patient rates the pain 7/10 in severity. Patient reports n/v, chills, head pressure, nasal congestion, subjective fever, and dizziness. She also c/o syncope in the shower this morning at 1100, she states she was going to turn off the hot water and she felt the room get shaky. Next thing she knew she was on the floor Patient denies sore throat, CP, SOB, palpitations, cough, ABD pain, diarrhea, constipation, and blurred vision. She describes the dizziness as the room spinning. She states her head feels full but does not have a headache. - History of Current Complaint Chief Complaint: UCGeneralIllness Stated Complaint: VOMITING Hx Obtained From: Patient Hx Last Menstrual Period: unkown Onset/Duration: Still Present Timing: Constant Onset Severity: Moderate Current Severity: Moderate Pain Intensity: 7 Pain Location at: head Associated Signs & Symptoms: Positive: Other - n/v, chills, [place], stuffy nose, and dizziness - Allergy/Home Medications Allergies/Adverse Reactions: Allergies Allergy/AdvReac Type Severity Reaction Status Date / Time amoxicillin Allergy Rash And Verified 07/17/18 15:53 Itching cefadroxil Allergy Hives Verified 07/17/18 15:53 clindamycin Allergy Nausea And Verified 07/17/18 15:53 Vomiting Home Medications: Home Medications NK [No Home Medications Reported] 07/17/18 [History Confirmed 07/17/18] PMH/Surg Hx/FS Hx/Imm Hx - Additional Past Medical History Additional PMH: morbidly obese Endocrine History: Thyroid Disease Psychological History: Depression Other History Of: Negative For: Anticoagulant Therapy - Surgical History Surgical History: Yes Surgery Procedure, Year, and Place: wisdom teeth extraction 2012 - Family History Known Family History: Positive: Hypertension, Diabetes, Respiratory Disease - asthma - Social History Alcohol Use: Occasionally Substance Use Type: Marijuana Substance Use Comment - Amount & Last Used: once a month Smoking Status (MU): Former Smoker Type: Cigarettes Amount Used/How Often: up to 2 cigs weekly Have You Smoked in the Last Year: No When Did the Patient Quit Smoking/Using Tobacco: 2013 Household Exposure Type: Cigarettes - Immunization History Most Recent Influenza Vaccination: Not utd Most Recent Tetanus Shot: UKN Most Recent Pneumonia Vaccination: NONE Review of Systems Constitutional: Fever, Chills ENT: Sinus Congestion, Other - head feels full Gastrointestinal: Vomiting, Nausea Neurological: Other - syncope and dizziness All Other Systems Reviewed And Are Negative: Yes Physical Exam - Summary Physical Exam Summary: VITAL SIGNS: Reviewed. GENERAL: Patient is a well-developed and morbidly obese female who is lying comfortable in the stretcher. Patient is not in any acute respiratory distress. Pt is actively vomiting HEAD AND FACE: Normocephalic EYES: PERRLA, EOMI x 2. EARS: Hearing grossly intact. MOUTH: Oropharynx within normal limits. NECK: Supple, trachea is midline, no adenopathy, no JVD, no carotid bruit. CHEST: Symmetric, no tenderness at palpation LUNGS: Clear to auscultation bilaterally. No wheezing or crackles. CVS: Regular rate and rhythm, S1 and S2 present, no murmurs or gallops appreciated. ABDOMEN: Soft, non-tender. Bowel sounds are normal. No abdominal abnormal pulsations. EXTREMITIES: Full ROM in all major joints, no edema, no cyanosis or clubbing. NEURO: Alert and oriented x 3. No acute neurological deficits. Speech is normal and follows commands. SKIN: Dry and warm Triage Information Reviewed: Yes Vital Signs: Initial Vital Signs Temp 97.7 F 07/17/18 15:49 Pulse 50 07/17/18 15:49 Resp 22 07/17/18 15:49 BP 130/71 07/17/18 15:49 Pulse Ox 100 07/17/18 15:49 Vital Signs Reviewed: Yes Diagnostics - EKG EKG Comments: Taken at 1605, no ST elevations Cardiac Rate: Bradycardia Cardiac Rhythm: Sinus: Normal - at 56 BPM Course/Dx - Course Course Of Treatment: Patient is a 23-year-old female who presents to the urgent care with chief complaint of having a syncopal episode with loss of consciousness, weakness, and nausea and vomiting. Patient reports that she has been feeling this way for the last 3 days however, today she had a syncopal episode while she was in the shower. She reports that she has positive loss of consciousness. However she denies any headache, chest pain, palpitations, sinus pain, sore throat, ear pain, or upper respiratory tract infection. LMP 2 weeks ago. Because of the syncopal episodes and continue dizziness with nausea and vomiting the patient will be discharged to the emergency department for further workup and management. Patient declined ambulance transport. Patient is hemodynamically stable alert and oriented 3. EKG with a sinus bradycardia with no ST elevations. - Differential Dx - Multi-Symptom Provider Diagnoses: Syncope Discharge - Sign-Out/Discharge Documenting (check all that apply): Patient Departure All imaging exams completed and their final reports reviewed: No Studies - Discharge Plan Condition: Stable Disposition: HOME-RECOMMEND TO ED Patient Education Materials: Syncope (ED) Referrals: [facility] [place] [Outside] No Primary Care Phys,NOPCP [Primary Care Provider] - Additional Instructions: Patient will be discharged to the emergency department for further workup and management. Patient declined ambulance transfer. - Billing Disposition and Condition Condition: STABLE Disposition: Home-Recommend to ED - Attestation Statements Document Initiated by Robynibe: Yes Documenting Scribe: Clinton Arana Provider For Whom Scribe is Documenting (Include Credential): Joe Stevenson MD Scribe Attestation: Clinton Garcia, scribed for Joe Stevenson MD on 07/17/18 at 1649. Scribe Documentation Reviewed: Yes Provider Attestation: The documentation as recorded by the Clinton lizarrgaa accurately reflects the service I personally performed and the decisions made by , Joe Stevenson MD
[2018-07-17] MEDS ORDERED: Ondansetron ODT TAB* 4 MG PO ONE (16:18)
== END 2018-07-17 16:25 | disposition home health service (06) ==
LOC: UCEAST 15:42
DX: R55 Syncope and collapse (principal); R11.2 Nausea with vomiting, unspecified; R09.81 Nasal congestion; R50.9 Fever, unspecified; R53.1 Weakness; R42 Dizziness and giddiness; Z88.0 Allergy status to penicillin; Z88.1 Allergy status to other antibiotic agents; Z87.891 Personal history of nicotine dependence
CPT/HCPCS: 93005; 99212; A9270-GY; G0463

== ENCOUNTER 2018-07-17 17:01 | Emergency (ER) | payer OTHER ==
[2018-07-17 18:30] LABS: ABS Basophils 0 10^3/ul (0-0.2); ABS Eosinophils 0.3 10^3/ul (0-0.6); ABS Lymphocytes 1.7 10^3/ul (1.0-4.8); ABS Monocytes 0.5 10^3/ul (0-0.8); ABS Neutrophils 5.1 10^3/ul (1.5-7.7); ABS Nucleated RBC 0 10^3/ul; Eosinophil % 4.5 % (0-6); Hematocrit 38 % (35-47); Hemoglobin 12.3 g/dl (12.0-16.0); Mean Corpuscular HGB Conc 32 g/dl (31-36); Mean Corpuscular Hemoglobin 27 pg (27-31); Mean Corpuscular Volume 83 fL (80-97); Mean Platelet Volume 7.4 um3 (7.4-10.4); Nucleated Red Blood Cells % 0.1; Platelet Count 365 10^3/ul (150-450); Red Cell Distribution Width 17 % (10.5-15); White Blood Count 7.7 10^3/ul (3.5-10.8)
[2018-07-17 18:50] LABS: EGFR Non-African American 98.8 (>60)
[2018-07-17] MEDS ORDERED: Meclizine TAB* 12.5 MG PO ONE (20:09)
[2018-07-17] MEDS ORDERED: NS 0.9% 1000 ML* 1,000 ML IV ONE (20:09)
[2018-07-17] MEDS ORDERED: Ondansetron INJ* 2 MG/ML VIAL IV ONE (20:11)
--- NOTE | 2018-07-17 20:18 | ED ---
Dizziness - HPI Summary HPI Summary: Pt is a 23 y/o female who presents to the ED c/o dizziness. She states the symptoms began 3 days ago, and include dizziness, N/V, overheating, and diaphoresis. Pt describes the sensation as the room spinning with tunnel vision. She has not been able to keep food down. Pt denies any constipation, abdominal pain, or nasal congestion. She currently has diarrhea, but she says she has it all the time. Her sinuses hurt to touch, and she said she has a lack of sensation to her head. Today she also noticed mild chest congestion and bumps on her forehead. Pt had an ear infection recently, but her sx never truly resolved and she still reports ear pain. - History Of Current Complaint Chief Complaint: EDDizziness Stated Complaint: SYNCOPE Time Seen by Provider: 07/17/18 19:50 Hx Obtained From: Patient Onset/Duration: Still Present Timing: Constant Character: Room Spinning, Dizzy Aggravating Factor(s): Position Change Alleviating Factor(s): Nothing Associated Signs And Symptoms: Positive: Nausea, Vomiting, Diarrhea, Visual Changes - Tunnel vision - Allergies/Home Medications Allergies/Adverse Reactions: Allergies Allergy/AdvReac Type Severity Reaction Status Date / Time amoxicillin Allergy Rash And Verified 07/17/18 17:03 Itching cefadroxil Allergy Hives Verified 07/17/18 17:03 clindamycin Allergy Nausea And Verified 07/17/18 17:03 Vomiting PMH/Surg Hx/FS Hx/Imm Hx Endocrine/Hematology History: Reports: Hx Thyroid Disease Denies: Hx Anticoagulant Therapy, Hx Blood Disorders, Hx Blood Transfusions, Hx Bone Marrow Disease, Hx Diabetes, Hx Anemia, Hx Unexplained Bleeding Cardiovascular History: Denies: Hx Hypertension Respiratory History: Reports: Hx Asthma Denies: Hx Chronic Obstructive Pulmonary Disease (COPD) GI History: Denies: Hx Gastrointestinal Bleed, Hx Hiatal Hernia, Hx Ulcer History: Denies: Hx Acute Renal Failure, Hx Benign Prostatic Hyperplasia, Hx Chronic Renal Failure Sensory History: Denies: Hx Cataracts, Hx Contacts or Glasses, Hx Eye Injury, Hx Eye Prosthesis, Hx Glaucoma, Hx Legally Blind, Hx Macular Degeneration, Hx Hearing Aid Opthamlomology History: Denies: Hx Cataracts, Hx Contacts or Glasses, Hx Eye Injury, Hx Eye Prosthesis, Hx Glaucoma, Hx Legally Blind, Hx Macular Degeneration Neurological History: Denies: Hx Headaches, Hx Migraine, Hx Nerve Disease, Hx Seizures, Hx Spinal Cord Injury, Other Neuro Impairments/Disorders Psychiatric History: Reports: Hx Anxiety, Hx Eating Disorder - binging & purging age 11-18, Hx Depression Denies: Hx Suicide Attempt, Hx of Violent Episodes Against Others - Cancer History Hx Chemotherapy: No Hx Radiation Therapy: No Hx Palliative Cancer Treatment: No - Surgical History Surgery Procedure, Year, and Place: wisdom teeth extraction 2012 Hx Anesthesia Reactions: No Infectious Disease History: No Infectious Disease History: Reports: Hx Clostridium Difficile - 2014 Denies: Hx Hepatitis, Hx Human Immunodeficiency Virus (HIV), Hx of Known/ Suspected MRSA, Hx Shingles, Hx Tuberculosis, Hx Known/Suspected VRE, Hx Known/ Suspected VRSA, History Other Infectious Disease, Traveled Outside the [place] in Last 30 Days - Family History Known Family History: Positive: Hypertension, Diabetes, Respiratory Disease - asthma - Social History Alcohol Use: Occasionally Hx Substance Use: Yes Substance Use Type: Reports: Marijuana Substance Use Comment - Amount & Last Used: once a month Hx Tobacco Use: Yes Smoking Status (MU): Former Smoker Type: Cigarettes Amount Used/How Often: up to 2 cigs weekly Have You Smoked in the Last Year: No Review of Systems Positive: Skin Diaphoresis, Other - overheating Positive: Ear Ache, Other - Sinus pain. Negative: Nasal Discharge Positive: Other - Chest congestion Positive: Vomiting, Diarrhea, Nausea. Negative: Abdominal Pain, Other - Constipation Positive: Other - Bumps on forehead Neurological: Other - Dizziness, room-spinning All Other Systems Reviewed And Are Negative: Yes Physical Exam - Summary Physical Exam Summary: Appearance: Well appearing, no pain distress, obese Skin: warm, dry, reflects adequate perfusion Head/face: normal Eyes: EOMI, ESTHELA, no nystagmus ENT: mucous membranes moist, small serous effusion of left ear, mild right canal erythema, tenderness with palpation and percussion of frontal sinuses Neck: supple, non-tender Respiratory: CTA, breath sounds present Cardiovascular: RRR, pulses symmetrical Abdomen: non-tender, soft Bowel Sounds: present Musculoskeletal: normal, strength/ROM intact Neuro: normal, sensory motor intact, A&Ox3, negative Sabrina-Hallpike Triage Information Reviewed: Yes Vital Signs On Initial Exam: Initial Vitals Temp Pulse Resp BP Pulse Ox 97.9 F 87 18 153/69 100 07/17/18 17:02 07/17/18 17:02 07/17/18 17:02 07/17/18 17:02 07/17/18 17:02 Vital Signs Reviewed: Yes Diagnostics - Vital Signs Vital Signs Temp Pulse Resp BP Pulse Ox 07/17/18 17:02 97.9 F 87 18 153/69 100 - Laboratory Lab Results: Lab Results 07/17/18 07/17/18 07/17/18 Range/Units 18:15 18:15 18:15 WBC 7.7 (3.5-10.8) 10^3/ul RBC 4.60 (4.00-5.40) 10^6/ul Hgb 12.3 (12.0-16.0) g/dl Hct 38 (35-47) % MCV 83 (80-97) fL MCH 27 (27-31) pg MCHC 32 (31-36) g/dl RDW 17 H (10.5-15) % Plt Count 365 (150-450) 10^3/ul MPV 7.4 (7.4-10.4) um3 Neut % (Auto) 65.9 (38-83) % Lymph % (Auto) 22.0 L (25-47) % Hughes % (Auto) 7.0 (0-7) % Eos % (Auto) 4.5 (0-6) % Baso % (Auto) 0.6 (0-2) % Absolute Neuts (auto) 5.1 (1.5-7.7) 10^3/ul Absolute Lymphs (auto) 1.7 (1.0-4.8) 10^3/ul Absolute Monos (auto) 0.5 (0-0.8) 10^3/ul Absolute Eos (auto) 0.3 (0-0.6) 10^3/ul Absolute Basos (auto) 0 (0-0.2) 10^3/ul Absolute Nucleated RBC 0 10^3/ul Nucleated RBC % 0.1 Sodium 138 (135-145) mmol/L Potassium 3.8 (3.5-5.0) mmol/L Chloride 106 (101-111) mmol/L Carbon Dioxide 27 (22-32) mmol/L Anion Gap 5 (2-11) mmol/L BUN 7 (6-24) mg/dL Creatinine 0.73 (0.51-0.95) mg/dL Est GFR ( Amer) 119.5 (>60) Est GFR (Non-Af Amer) 98.8 (>60) BUN/Creatinine Ratio 9.6 (8-20) Glucose 102 H (70-100) mg/dL Lactic Acid 0.7 (0.5-2.0) mmol/L Calcium 8.9 (8.6-10.3) mg/dL Magnesium 2.0 (1.9-2.7) mg/dL Total Bilirubin 0.20 (0.2-1.0) mg/dL AST 17 (13-39) U/L ALT 27 (7-52) U/L Alkaline Phosphatase 71 (34-104) U/L Troponin I 0.00 (<0.04) ng/mL C-Reactive Protein 7.03 (<8.01) mg/L Total Protein 7.0 (6.4-8.9) g/dL Albumin 4.0 (3.2-5.2) g/dL Globulin 3.0 (2-4) g/dL Albumin/Globulin Ratio 1.3 (1-3) TSH 1.37 (0.34-5.60) mcIU/mL Beta HCG, Quant Pending Result Diagrams: 07/17/18 18:15 07/17/18 18:15 Lab Statement: Any lab studies that have been ordered have been reviewed, and results considered in the medical decision making process. - CT Sinuses CT CT Interpretation: Positive (See Comments) - Acute sinusitis. Pending official radiology report. CT Interpretation Completed By: ED Physician, Radiologist - Right maxillary sinusitis - EKG 18:03 Cardiac Rate: NL - 61 bpm EKG Rhythm: Sinus Rhythm ST Segment: Normal EKG Interpretation: Normal axis, normal interval Re-Evaluation - Re-Evaluation First Eval Change: Improved Dizzy Course/Dx - Course Course Of Treatment: Patient with upper respiratory infection complicated now by dizziness/vertigo. She had sinus tenderness without fever but CT of the sinuses indicate sinusitis. She was started on oral Levaquin here. She been treated with IV fluids, meclizine with improvement of her dizziness. She will the placed on continued Levaquin, oral steroids, Flonase and decongestant. She' ll follow-up with [facility] and primary care referral has been given. - Diagnoses Differential Diagnosis/HQI/PQRI: Benign Paroxysmal Positional Vertigo, Labyrinthitis, Metabolic Abnormality, Other - Sinusitis Provider Diagnoses: Labyrinthitis of both ears, Acute maxillary sinusitis Discharge - Sign-Out/Discharge Documenting (check all that apply): Patient Departure - Discharge - Discharge Plan Condition: Improved Disposition: HOME Prescriptions: Dexamethasone [Decadron] 8 mg PO DAILY #8 tablet Fluticasone NASAL SPRAY 50MCG* [Flonase NASAL SPRAY 50MCG*] 2 spray BOTH NARES DAILY #1 btl Guaifenesin/Pseudo 600/60(NF) [Mucinex D 600/60 (NF)] 1 tab PO BID #12 tab Levofloxacin TAB* [Levaquin TAB*] 750 mg PO DAILY #6 tab Patient Education Materials: Sinusitis (ED), Labyrinthitis (ED) Forms: *Work Release Referrals: [facility] [Outside] [facility] [place] [facility] [Outside] Additional Instructions: Humidifier while sleeping. Take vitamin C orally. Afrin may help sinus drainage. Use this no more than 2-3 days. Return with high fever, worsening dizziness, new symptoms or other concerns. Call in the morning to schedule follow-up with a primary care physician through the referral line or with the [facility] here in the hospital. - Billing Disposition and Condition Condition: IMPROVED Disposition: Home - Attestation Statements Document Initiated by Hakeem: Yes Documenting Scribe: Sun Carranza Provider For Whom Hakeem is Documenting (Include Credential): José Miguel Mayen MD Scribe Attestation: Sun Garcia scribed for José Miguel Mayen MD on 07/17/18 at 2200. Scribe Documentation Reviewed: Yes Provider Attestation: The documentation as recorded by the Sun lizarraga accurately reflects the service I personally performed and the decisions made by , José Miguel Mayen MD
[2018-07-17 20:53] LABS: Urine Appearance Cloudy; Urine Blood 2+ (Negative); Urine Color Yellow; Urine Ketones Negative (Negative); Urine Protein 1+(30 mg/dL) (Negative); Urine Red Blood Cell Trace(0-2/hpf) (Absent); Urine Specific Gravity 1.024 (1.010-1.030); Urine Urobilinogen Negative (Negative); Urine White Blood Cell 1+(6-10/hpf) (Absent)
[2018-07-17] MEDS ORDERED: Levofloxacin TAB* 250 MG PO ONE (21:37)
[2018-07-17 21:41] VITALS: BP 136/84
--- NOTE | 2018-07-17 21:57 | RAD ---
EXAM: CT Maxillofacial Without Intravenous Contrast EXAM DATE/TIME: 07/17/2018 8:58 PM CLINICAL HISTORY: 23 years old, female; Signs and symptoms; Other: Vertigo, sinus tenderness; Additional info: Sinus tenderness, vertigo TECHNIQUE: Axial computed tomography images of the face without intravenous contrast. All CT scans at this facility use at least one of these dose optimization techniques: automated exposure control; mA and/or kV adjustment per patient size (includes targeted exams where dose is matched to clinical indication); or iterative reconstruction. Coronal and sagittal reformatted images were created and reviewed. COMPARISON: No relevant prior studies available. FINDINGS: Bones/joints: No acute fracture. Soft tissues: No significant facial soft tissue swelling. Orbits: No acute intraorbital abnormality. Globes are unremarkable Sinuses: There is mucosal thickening in the paranasal sinuses and there is dependent fluid and/or debris in the right maxillary sinus, cannot exclude acute right maxillary sinusitis. IMPRESSION: There is mucosal thickening in the paranasal sinuses and there is dependent fluid and/or debris in the right maxillary sinus, cannot exclude acute right maxillary sinusitis. To contact [facility] with a general question: Operations Center - [phone] For direct physician to physician contact: Physician Hotline - [phone] [facility] ([facility] Facility ID #[id number])
== END 2018-07-17 22:17 | disposition home or self-care (01) ==
LOC: ED 17:01
DX: H83.03 Labyrinthitis, bilateral (principal); J01.00 Acute maxillary sinusitis, unspecified; Z87.891 Personal history of nicotine dependence; E07.9 Disorder of thyroid, unspecified; J45.909 Unspecified asthma, uncomplicated
CPT/HCPCS: 36415; 70486; 80053; 81003; 81015; 83605; 83735; 84443; 84484; 84702; 85025; 86140; 87086; 93005; 96361; 96374; 99283; A9270-GY; J2405

== ENCOUNTER → 2018-09-21 13:40 | Emergency (ER) | payer SELFPAY ==
[~2018-09-21 13:40] MED LIST changes: +Ketorolac INJ* 30 MG/ML 1 ML VIAL IM ONE; +LORazepam TAB(*) 1 MG PO ONE; -Ondansetron ODT TAB* 4 MG SL ONE; +Phenazopyridine TAB* 100 MG PO ONE; +Sulfamethox/Trimethoprim DS 800/160* TAB PO ONE; -traMADol TAB* 50 MG PO ONE
[2018-09-21 15:07] LABS: ABS Basophils 0.1 10^3/ul (0-0.2); ABS Eosinophils 0.4 10^3/ul (0-0.6); ABS Lymphocytes 1.9 10^3/ul (1.0-4.8); ABS Monocytes 0.9 10^3/ul (0-0.8); ABS Neutrophils 8.3 10^3/ul (1.5-7.7); ABS Nucleated RBC 0 10^3/ul; Eosinophil % 3.8 %; Hematocrit 37 % (35-47); Hemoglobin 12.4 g/dl (12.0-16.0); Lymphocyte % 16.7 %; Mean Corpuscular HGB Conc 33 g/dl (31-36); Mean Corpuscular Hemoglobin 27 pg (27-31); Mean Corpuscular Volume 83 fL (80-97); Mean Platelet Volume 7.4 fL (7.4-10.4); Nucleated Red Blood Cells % 0; Platelet Count 406 10^3/ul (150-450); Red Blood Count 4.53 10^6/ul (4.00-5.40); Red Cell Distribution Width 16 % (10.5-15); White Blood Count 11.7 10^3/ul (3.5-10.8)
[2018-09-21 15:12] LABS: Urine Appearance Turbid; Urine Bacteria Absent (Absent); Urine Bilirubin Negative (Negative); Urine Blood 1+ (Negative); Urine Color Amber; Urine Glucose Negative (Negative); Urine Ketones Negative (Negative); Urine Nitrite Negative (Negative); Urine Protein 1+(30 mg/dL) (Negative); Urine Red Blood Cell 3+(>10/hpf) (Absent); Urine Urobilinogen Negative (Negative); Urine White Blood Cell 3+(>20/hpf) (Absent)
--- NOTE | 2018-09-21 15:28 | ED ---
Abdominal Pain/Female - HPI Summary HPI Summary: A 23 y/o female presents to the ED c/o LLQ abdominal pain. Currently, the patient is still experiencing LLQ abdominal pain reaching 6/10 in severity. According to the patient, she has been experiencing LLQ abdominal pain that is radiating across her lower back to the right side. Additionally, she has also been having difficulty urinating and she thinks she has UTI. She stated that she has had a ovarian cyst before as she has just hospitalized for it. She was given medications and IV as it was infected. She is not sure when the first day of her last period as she thinks she is on it currently, but she is not sure because last time she was bleeding vaginally with her cyst. Now, she has the vaginal bleeding (spotting) which was noted as enough to be a period, but doesn' t feel the same as her regular periods. She has been experiencing the abdominal pain for 4 days and the vaginal bleeding for 6 days (bleeding before pain). She denies any nausea, fever, vomiting, headache, but does feel dizzy/lightheaded when she moves around and ambulating. She states the dizziness makes her feel like, "my head feels outside of my head". She stated that her last normal period was in the beginning of June 2018. She thinks she has no change of even though she is sexually active because her partner uses condoms and she is on control. She has been taking her control medications since June to about 09/14/2018. She hasn't been taking it since then because her scripted wasn't renewed due to her missed appointment. She thinks it could be an ovarian cyst because of similar symptoms and timing. Last time, she thought she was on her period but then experienced horrible pain to the point where she could not move or go to the bathroom. March 20, 2018 - March 22, 2018 admission with a tubo ovarian abscess. A1, miscarriage at almost 5 months baby. Patient takes no medications everyday, except she does take her medication for her genital herpes (not active) as needed. Allergic to amoxicillin, cefadroxil, clindamycin. Patient requested anxiety medication, Ativan, because she is anxious for the ultrasound. - History of Current Complaint Chief Complaint: Zeenat Stated Complaint: POSS CYST Time Seen by Provider: 09/21/18 14:27 Hx Obtained From: Patient Hx Last Menstrual Period: unkown Onset/Duration: Sudden Onset, Lasting Days, Still Present Timing: Constant Severity Initially: Moderate - 6/10 Severity Currently: Moderate - 6/10 Pain Intensity: 6 Pain Scale Used: 0-10 Numeric Location: Discrete At: LLQ Radiates: Yes Radiates to: Back - ACROSS BACK FROM LEFT TO RIGHT SIDE Aggravating Factor(s): Nothing Alleviating Factor(s): Nothing Associated Signs and Symptoms: Positive: Dizzy - DURING MOVEMENT, Back Pain, Urinary Symptoms - DIFFICULTY URINATING, Vaginal Bleeding. Negative: Fever, Nausea, Vomiting Allergies/Adverse Reactions: Allergies Allergy/AdvReac Type Severity Reaction Status Date / Time amoxicillin Allergy Rash And Verified 09/21/18 15:00 Itching cefadroxil Allergy Hives Verified 09/21/18 15:00 clindamycin Allergy Nausea And Verified 09/21/18 15:00 Vomiting PMH/Surg Hx/FS Hx/Imm Hx Endocrine/Hematology History: Reports: Hx Thyroid Disease Denies: Hx Anticoagulant Therapy, Hx Blood Disorders, Hx Blood Transfusions, Hx Bone Marrow Disease, Hx Diabetes, Hx Anemia, Hx Unexplained Bleeding Cardiovascular History: Denies: Hx Hypertension Respiratory History: Reports: Hx Asthma Denies: Hx Chronic Obstructive Pulmonary Disease (COPD) GI History: Denies: Hx Gastrointestinal Bleed, Hx Hiatal Hernia, Hx Ulcer History: Denies: Hx Acute Renal Failure, Hx Benign Prostatic Hyperplasia, Hx Chronic Renal Failure Sensory History: Denies: Hx Cataracts, Hx Contacts or Glasses, Hx Eye Injury, Hx Eye Prosthesis, Hx Glaucoma, Hx Legally Blind, Hx Macular Degeneration, Hx Hearing Aid Opthamlomology History: Denies: Hx Cataracts, Hx Contacts or Glasses, Hx Eye Injury, Hx Eye Prosthesis, Hx Glaucoma, Hx Legally Blind, Hx Macular Degeneration Neurological History: Denies: Hx Headaches, Hx Migraine, Hx Nerve Disease, Hx Seizures, Hx Spinal Cord Injury, Other Neuro Impairments/Disorders Psychiatric History: Reports: Hx Anxiety, Hx Eating Disorder - binging & purging age [age], Hx Depression Denies: Hx Suicide Attempt, Hx of Violent Episodes Against Others - Cancer History Hx Chemotherapy: No Hx Radiation Therapy: No Hx Palliative Cancer Treatment: No - Surgical History Surgery Procedure, Year, and Place: wisdom teeth extraction 2013 Hx Anesthesia Reactions: No Infectious Disease History: No Infectious Disease History: Reports: Hx Clostridium Difficile - 2015 Denies: Hx Hepatitis, Hx Human Immunodeficiency Virus (HIV), Hx of Known/ Suspected MRSA, Hx Shingles, Hx Tuberculosis, Hx Known/Suspected VRE, Hx Known/ Suspected VRSA, History Other Infectious Disease, Traveled Outside the [place] in Last 30 Days - Family History Known Family History: Positive: Hypertension, Diabetes, Respiratory Disease - asthma, Other - LUNG CANCER AND ALCOHOLISM - Social History Alcohol Use: Occasionally Hx Substance Use: Yes Substance Use Type: Reports: Marijuana Substance Use Comment - Amount & Last Used: once a month Hx Tobacco Use: Yes Smoking Status (MU): Former Smoker Type: Cigarettes Amount Used/How Often: up to 2 cigs weekly Have You Smoked in the Last Year: No Review of Systems Negative: Fever Positive: Abdominal Pain. Negative: Vomiting, Nausea Positive: discharge - BLEEDING, other - DIFFICULTY URINATING Neurological: Other - POSITIVE: DIZZNESS/LIGHTHEADEDNESS DURING MOVEMENT Negative: Headache All Other Systems Reviewed And Are Negative: Yes Physical Exam - Summary Physical Exam Summary: Appearance: Well-appearing, moderate pain distress, morbidly obese Skin: Warm, color reflects adequate perfusion, dry Head: Normal Head/Face inspection, atraumatic Eyes: Conjunctiva clear ENT: Normal inspection Neck: Supple, no nodes, no JVD Respiratory: Lungs clear, normal breath sounds, no respiratory distress Cardio: RRR, No murmur, pulses normal, brisk capillary refill Abdomen: Soft, nontender Bowel sounds: Present Musculoskeletal: Strength Intact/ROM intact, no calf tenderness, no edema. Psychological: Normal Neuro: Alert, muscle tone normal, no focal deficit PELVIC EXAM AT 1544 WITH AUTOMOTIVE SERVICE MANAGER ZAYRA: serosanguinous discharge in vagina, cervical os closed, adnexal region tender bilaterally, but not discretely palpated (exam limited by pt's morbid obesity), uterus normal sized, nontender. Triage Information Reviewed: Yes Vital Signs On Initial Exam: Initial Vitals Temp Pulse Resp BP Pulse Ox 98.4 F 92 20 131/91 99 09/21/18 13:53 09/21/18 13:53 09/21/18 13:53 09/21/18 13:53 09/21/18 13:53 Vital Signs Reviewed: Yes Diagnostics - Vital Signs Vital Signs Temp Pulse Resp BP Pulse Ox 09/21/18 14:53 20 09/21/18 13:53 98.4 F 92 20 131/91 99 - Laboratory Lab Results: Lab Results 09/21/18 Range/Units 14:52 WBC 11.7 H (3.5-10.8) 10^3/ul RBC 4.53 (4.00-5.40) 10^6/ul Hgb 12.4 (12.0-16.0) g/dl Hct 37 (35-47) % MCV 83 (80-97) fL MCH 27 (27-31) pg MCHC 33 (31-36) g/dl RDW 16 H (10.5-15) % Plt Count 406 (150-450) 10^3/ul MPV 7.4 (7.4-10.4) fL Neut % (Auto) 71.4 % Lymph % (Auto) 16.7 % [place] % (Auto) 7.6 % Eos % (Auto) 3.8 % Baso % (Auto) 0.5 % Absolute Neuts (auto) 8.3 H (1.5-7.7) 10^3/ul Absolute Lymphs (auto) 1.9 (1.0-4.8) 10^3/ul Absolute Monos (auto) 0.9 H (0-0.8) 10^3/ul Absolute Eos (auto) 0.4 (0-0.6) 10^3/ul Absolute Basos (auto) 0.1 (0-0.2) 10^3/ul Absolute Nucleated RBC 0 10^3/ul Nucleated RBC % 0 Result Diagrams: 09/21/18 14:52 09/21/18 14:52 Lab Statement: Any lab studies that have been ordered have been reviewed, and results considered in the medical decision making process. - Ultrasound No standard instances Ultrasound Interpretation Completed By: Radiologist Summary of Ultrasound Findings: TRANSVAGINAL US: 1. LIMITED EVALUATION OF THE LEFT OVARY. 2. BILATERAL OVARIAN CYSTS. 3. NO SONOGRAPHIC FEATURES OF TORSION. PLEASE NOTE THAT PARTIAL OR INTERMITTENT TORSION. MAY BE SONOGRAPHICALLY NORMAL. ED PHYSICIAN REVIEWED THIS RADIOLOGY REPORT. Abdominal Pain Fem Course/Dx - Course Course Of Treatment: A 23 y/o female presents to the ED c/o LLQ abdominal pain. Currently, the patient is still experiencing LLQ abdominal pain reaching 6/10 in severity. According to the patient, she has been experiencing LLQ abdominal pain that is radiating across her lower back to the right side. Additionally, she has also been having difficulty urinating and she thinks she has UTI. She stated that she has had a ovarian cyst before as she has just hospitalized for it. She has been experiencing the abdominal pain for 4 days and the vaginal bleeding for 6 days (bleeding before pain). She denies any nausea, fever, vomiting, headache, but does feel dizzy/lightheaded when she moves around and ambulating. Physical examination findings significant for serosanguineous discharge in vagina, cervical os closed, adnexa closed laterally, uterus normal sized.Pt medications reviewed this visit. A Transvaginal US revealed 1. Limited evaluation of the left ovary. 2. Bilateral ovarian cysts. 3. No sonographic features of torsion. Please note that partial or intermittent torsion may be sonographically normal. Hematology, Chemistry, and urinalysis screens were done. No significant laboratory abnormalities were found, In the ED course, the patient received Toradol, Ativan, Pyridium, and Bactrim. Patient will be discharged with a diagnosis of pelvic pain, ovarian cyst, and UTI. She will be sent home with Bactrim and Pyridium and is to take medications as prescribed. 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 Patient has pelvic cultures pending and will be contracted if needed for further management and evaluation. Follow up with [facility] in 1-2 days. Patient is to return to ED for any new or worsening symptoms. Patient is agreeable with this plan. - Diagnoses Provider Diagnoses: UTI (urinary tract infection), Ovarian cyst, Pelvic pain Discharge - Sign-Out/Discharge Documenting (check all that apply): Patient Departure - DISCHARGE - Discharge Plan Condition: Stable Disposition: HOME Prescriptions: Azithromycin 500 mg PO ONCE #2 tablet ceFIXime [Suprax] 400 mg PO ONCE #1 capsule metroNIDAZOLE [Flagyl 500 MG TAB] 500 mg PO BID #14 tab Phenazopyridine 200 mg (NF) [Pyridium 200 MG tab *] 200 mg PO TID PRN #15 tab PRN Reason: dysuria Sulfamethox/Trimethoprim DS* [Bactrim DS 800/160 TAB*] 1 tab PO BID #10 tab Patient Education Materials: Ovarian Cyst (ED), Urinary Tract Infection in Women (ED), Pelvic Pain in Women (ED) Referrals: [facility] [Outside] - [facility] Day [facility] [Outside] - As Soon As Possible Bernard Rhodes MD [Medical Doctor] - (keep your appointment with them in September) Additional Instructions: Your ultrasound showed ovarian cysts, but not a tubo ovarian abscess like before , and no twisting of the ovary on itself. We started treatment for possible UTI with Bactrim DS in the ER. Take this twice a day for five days, starting tomorrow, unless we call and tell you to stop it. We also gave you a shot of toradol (ketorolac) for pain and you may continue with tylenol or ibuprofen for pain. We also gave you pyridium in the ER, which is a bladder anesthetic and can help with pain when you urinate. It will turn your urine dark orange and can stain underwear and contacts, so be cautious about that. It does not treat the infection, so you do not have to take it if you do not like it. You do not have to finish the pyridium prescription. Just use it as needed for pain with urination. We have sent prescriptions for the Bactrim and pyridium to [facility]. Start these tomorrow and take as directed. You have pelvic cultures pending. We will contact you if you need further treatment for this based on the results. Return to the ER if you have new or worsening symptoms. - Billing Disposition and Condition Condition: STABLE Disposition: Home - Attestation Statements Document Initiated by Hakeem: Yes Documenting Scribe: Broderick Knutson Provider For Whom Hakeem is Documenting (Include Credential): Sally De Souza MD Scribe Attestation: Broderick Garcia, scribed for Sally De Souza MD on 09/22/18 at 1702. Status of Scribe Document: Viewed
[2018-09-21 15:32] LABS: ALT 12 U/L (7-52); AST 11 U/L (13-39); Albumin 3.9 g/dL (3.2-5.2); Albumin/Globulin Ratio 1.3 (1-3); Alkaline Phosphatase 91 U/L (34-104); Anion Gap 6 mmol/L (2-11); Blood Urea Nitrogen 8 mg/dL (6-24); C Reactive Protein 22.86 mg/L (<8.01); CO2 Carbon Dioxide 28 mmol/L (22-32); Calcium 8.8 mg/dL (8.6-10.3); Chloride 105 mmol/L (101-111); EGFR Non-African American 88.9 (>60); Glucose 93 mg/dL (70-100); HCG Pregnancy < 0.60 mIU/mL; Potassium 3.5 mmol/L (3.5-5.0); Sodium 139 mmol/L (135-145); Total Protein 6.9 g/dL (6.4-8.9)
[2018-09-22 06:46] VITALS: BP 0/0
--- NOTE | 2018-09-22 14:35 | PN ---
Progress Note - Progress Note Date of Service: 09/21/18 Note: Results returned with chlamydia positive and GC positive, bacterial vaginosis positive Patient is prescribed cefixime 400 mg, Flagyl 500 twice a day 7 days, Zithromax 1 g. Patient called at 2:35 PM to make aware of results Discussed no unprotected intercourse 7 days and to tell partners positive GC chlamydia She states she will package pick up the medication today and has no questions She will remain on her Bactrim for her UTI
== END | disposition home or self-care (01) ==
LOC: ED 13:40
DX: N39.0 Urinary tract infection, site not specified (principal); N83.201 Unspecified ovarian cyst, right side; R10.2 Pelvic and perineal pain; N76.0 Acute vaginitis; A74.9 Chlamydial infection, unspecified; A54.9 Gonococcal infection, unspecified; E07.9 Disorder of thyroid, unspecified; F41.9 Anxiety disorder, unspecified; J45.909 Unspecified asthma, uncomplicated; F32.9 Major depressive disorder, single episode, unspecified; Z87.891 Personal history of nicotine dependence
CPT/HCPCS: 36415; 76830; 80053; 81003; 81015; 83605; 84702; 85025; 86140; 87086; 87480; 87491; 87510; 87591; 87661; 96372; 99283; A9270-GY; J1885

== ENCOUNTER 2019-01-25 12:28 | Emergency (ER) | payer SELFPAY ==
[2019-01-25 12:50] VITALS: BP 138/89
--- NOTE | 2019-01-25 13:23 | UC ---
Complaint Female HPI - HPI Summary HPI Summary: 23-year-old female who states that she thinks she has a urinary tract infection. She's had no burning on urination but she states she always feels some lower pelvic discomfort and a certain feeling when she urinates when she has a UTI. She is sexually active and she did not use condoms one time about one week ago. She states she has had a small amount of yellowish discharge 3 days ago but then today she had a little bit of blood when she wiped. She denies any fever or chills. - History Of Current Complaint Chief Complaint: UCGU Stated Complaint: URINARY COMPLAINT Time Seen by Provider: 01/25/19 12:51 Hx Obtained From: Patient Hx Last Menstrual Period: 01/09/19 ?: No Onset/Duration: Gradual Onset Timing: Intermittent Severity Initially: Mild Severity Currently: Mild Pain Intensity: 0 Character: Not Applicable Aggravating Factor(s): Urination - Patient states that she has a certain feeling when she urinates when she has urinary tract infection that W believe that she might happen as well as urinary frequency. Alleviating Factor(s): Nothing Associated Signs And Symptoms: Positive: Vaginal Discharge - Patient had a small amount of yellow discharge 2 or 3 days ago and then today when she wiped she said there was small amount of bright blood on the tissue. - Allergies/Home Medications Allergies/Adverse Reactions: Allergies Allergy/AdvReac Type Severity Reaction Status Date / Time amoxicillin Allergy Rash And Verified 01/25/19 12:49 Itching cefadroxil Allergy Hives Verified 01/25/19 12:49 clindamycin Allergy Nausea And Verified 01/25/19 12:49 Vomiting PMH/Surg Hx/FS Hx/Imm Hx Previously Healthy: Yes Other History Of: Negative For: Anticoagulant Therapy - Surgical History Surgical History: Yes Surgery Procedure, Year, and Place: wisdom teeth extraction 2012 - Family History Known Family History: Positive: Hypertension, Diabetes, Respiratory Disease - asthma, Other - LUNG CANCER AND ALCOHOLISM - Social History Alcohol Use: None Substance Use Type: Marijuana Substance Use Comment - Amount & Last Used: once a month Smoking Status (MU): Former Smoker Type: Cigarettes Amount Used/How Often: up to 2 cigs weekly Have You Smoked in the Last Year: No When Did the Patient Quit Smoking/Using Tobacco: 2013 Household Exposure Type: Cigarettes - Immunization History Most Recent Influenza Vaccination: Not utd Most Recent Tetanus Shot: [facility] Most Recent Pneumonia Vaccination: NONE Review of Systems All Other Systems Reviewed And Are Negative: Yes Genitourinary: Positive: Frequency, Urgency, Vaginal/Penile Discharge - Small amount of yellow discharge 3 days ago and then today when she wiped she had a small amount of right red blood on the tissue. Is Patient Immunocompromised?: No Physical Exam Triage Information Reviewed: Yes Appearance: Well-Appearing, No Pain Distress, Well-Nourished Vital Signs: Initial Vital Signs Temp 98.0 F 01/25/19 12:42 Pulse 77 01/25/19 12:42 Resp 20 01/25/19 12:42 BP 138/89 01/25/19 12:42 Pulse Ox 97 01/25/19 12:42 Vital Signs Reviewed: Yes Neck: Positive: Supple, Nontender, No Lymphadenopathy Respiratory: Positive: Lungs clear, Normal breath sounds, No respiratory distress, No accessory muscle use Cardiovascular: Positive: RRR, No Murmur, Pulses Normal, Brisk Capillary Refill Abdomen Description: Positive: Nontender, No Organomegaly, Soft Bowel Sounds: Positive: Present Pelvic Exam: Positive: Other - Patient preferred not to have a pelvic exam done today. Musculoskeletal: Positive: Strength Intact, ROM Intact Neurological: Positive: Alert, Muscle Tone Normal Psychological Exam: Normal Skin Exam: Normal Complaint Female Dx - Course Course Of Treatment: Urinalysis was positive for urinary tract infection. The patient preferred not to have a pelvic exam done today but rather have the gonorrhea and chlamydia test done via urine. I'm going to treat her with Macrobid twice a day for 7 days. She is to go to the ER if she develops fever, chills, vomiting and unable keep the medication down or back pain or worsening symptoms. Patient is agreeable with this plan of action. I did tell her that if the symptoms of UTI did not clear up she should see her CRIMINOLOGY PROFESSOR physician for further care and possible pelvic exam and she is agreeable to this plan of action. - Differential Dx/Diagnosis Provider Diagnosis: UTI (urinary tract infection) Discharge - Sign-Out/Discharge Documenting (check all that apply): Patient Departure All imaging exams completed and their final reports reviewed: No Studies - Discharge Plan Condition: Fair Disposition: HOME Prescriptions: Nitrofurantoin Monohyd/M-Cryst [Macrobid 100 mg Capsule] 100 mg PO BID 7 Days # 14 cap Patient Education Materials: Urinary Tract Infection in Women (ED) Referrals: No Primary Care Phys,NOPCP [Primary Care Provider] - [facility] [Outside] Additional Instructions: Increase fluids, we will call you with the other culture results. Definite follow-up at [facility] if you have any worsening symptoms or no improvement by Tuesday. If you develop fever, chills, worsening back pain, vomiting and unable keep medication down and go to the emergency room. - Billing Disposition and Condition Condition: FAIR Disposition: Home
[2019-01-26 13:30] LABS: Neisseria gonorrhoeae (GC) RNA Negative (Negative)
--- NOTE | 2019-01-26 14:44 | UC ---
- Progress Note Progress Note: please notify patient she has Chlamydia as well as a UTI Zithromax eRxed 1000mg dose Course/Dx - Diagnoses Provider Diagnoses: UTI (urinary tract infection) Discharge - Sign-Out/Discharge Documenting (check all that apply): Post-Discharge Follow Up All imaging exams completed and their final reports reviewed: No Studies - Discharge Plan Condition: Fair Disposition: HOME Prescriptions: Azithromycin TAB* [Zithromax TAB (Z-ADRY) 250 mg #6 tabs] 1,000 mg PO DAILY #4 tab Nitrofurantoin Monohyd/M-Cryst [Macrobid 100 mg Capsule] 100 mg PO BID 7 Days # 14 cap Patient Education Materials: Urinary Tract Infection in Women (ED) Referrals: [facility] [Outside] No Primary Care Phys,NOPCP [Primary Care Provider] - Additional Instructions: Increase fluids, we will call you with the other culture results. Definite follow-up at [facility] if you have any worsening symptoms or no improvement by Tuesday. If you develop fever, chills, worsening back pain, vomiting and unable keep medication down and go to the emergency room. - Billing Disposition and Condition Condition: FAIR Disposition: Home
== END 2019-01-25 13:30 | disposition home or self-care (01) ==
LOC: UCEAST 12:28
DX: N39.0 Urinary tract infection, site not specified (principal); A74.9 Chlamydial infection, unspecified; Z87.440 Personal history of urinary (tract) infections; Z88.1 Allergy status to other antibiotic agents; Z88.0 Allergy status to penicillin; Z87.891 Personal history of nicotine dependence
CPT/HCPCS: 81003; 84702; 87077; 87086; 87186; 87491; 87591; 99212; G0463

== ENCOUNTER 2019-03-11 18:41 | Emergency (ER) | payer SELFPAY ==
--- NOTE | 2019-03-11 19:39 | ED ---
- HPI Summary HPI Summary: 23 year old LMP January 08 presents with vaginal spotting since yesterday. She has been having cramping intermittently for past two days. She has not had an ultrasound yet [facility] She states she has history a miscarriage at 4 months. Is concerned that is having such. She denies any recent illness. No fevers. He admits to some nausea but no vomiting. States she's been having crampy type pain. Denies passing any blood clots. No abnormal vaginal discharge. - History of Current Complaint Chief Complaint: EDOBProblems Stated Complaint: " 6 WEEKS W/CRAMPING PER PT" Time Seen by Provider: 03/11/19 19:22 Pain Intensity: 7 - Assessment Hx Now: No Hx Hysterectomy: No - Additional Pertinent History Primary Care Physician: [id number] - Allergies/Home Medications Allergies/Adverse Reactions: Allergies Allergy/AdvReac Type Severity Reaction Status Date / Time amoxicillin Allergy Rash And Verified 01/25/19 12:49 Itching cefadroxil Allergy Hives Verified 01/25/19 12:49 clindamycin Allergy Nausea And Verified 01/25/19 12:49 Vomiting PMH/Surg Hx/FS Hx/Imm Hx Endocrine/Hematology History: Reports: Other Endocrine/Hematological Disorders - morbid obesity Denies: Hx Anticoagulant Therapy, Hx Blood Disorders, Hx Blood Transfusions, Hx Bone Marrow Disease, Hx Diabetes, Hx Thyroid Disease, Hx Anemia, Hx Unexplained Bleeding Cardiovascular History: Denies: Hx Hypertension Respiratory History: Reports: Hx Asthma Denies: Hx Chronic Obstructive Pulmonary Disease (COPD) GI History: Denies: Hx Gastrointestinal Bleed, Hx Hiatal Hernia, Hx Ulcer History: Reports: Other Problems/Disorders - tubo-ovarian abscess 02/2018 Denies: Hx Acute Renal Failure, Hx Benign Prostatic Hyperplasia, Hx Chronic Renal Failure Sensory History: Denies: Hx Cataracts, Hx Contacts or Glasses, Hx Eye Injury, Hx Eye Prosthesis, Hx Glaucoma, Hx Legally Blind, Hx Macular Degeneration, Hx Hearing Aid Opthamlomology History: Denies: Hx Cataracts, Hx Contacts or Glasses, Hx Eye Injury, Hx Eye Prosthesis, Hx Glaucoma, Hx Legally Blind, Hx Macular Degeneration Neurological History: Denies: Hx Headaches, Hx Migraine, Hx Nerve Disease, Hx Seizures, Hx Spinal Cord Injury, Other Neuro Impairments/Disorders Psychiatric History: Reports: Hx Anxiety, Hx Eating Disorder - binging & purging age 11-18, Hx Depression Denies: Hx Suicide Attempt, Hx of Violent Episodes Against Others - Cancer History Hx Chemotherapy: No Hx Radiation Therapy: No Hx Palliative Cancer Treatment: No - Surgical History Surgery Procedure, Year, and Place: wisdom teeth extraction 2013 Hx Anesthesia Reactions: No Infectious Disease History: No Infectious Disease History: Reports: Hx Clostridium Difficile - 2014 Denies: Hx Hepatitis, Hx Human Immunodeficiency Virus (HIV), Hx of Known/ Suspected MRSA, Hx Shingles, Hx Tuberculosis, Hx Known/Suspected VRE, Hx Known/ Suspected VRSA, History Other Infectious Disease, Traveled Outside the [place] in Last 30 Days - Family History Known Family History: Positive: Hypertension, Diabetes, Respiratory Disease - asthma, Other - LUNG CANCER AND ALCOHOLISM - Social History Alcohol Use: None Hx Substance Use: Yes Substance Use Type: Reports: Marijuana Substance Use Comment - Amount & Last Used: once a month Hx Tobacco Use: Yes Smoking Status (MU): Former Smoker Type: Cigarettes Amount Used/How Often: up to 2 cigs weekly Have You Smoked in the Last Year: No Review of Systems Negative: Fever Negative: Chest Pain Negative: Shortness Of Breath Positive: Abdominal Pain, Other - spotting All Other Systems Reviewed And Are Negative: Yes Physical Exam - Physical Exam Triage Information Reviewed: Yes Vital Signs Reviewed: Yes Appearance: Positive: Well-Appearing Skin: Positive: Warm, Dry Head/Face: Positive: Normal Head/Face Inspection Eyes: Positive: Normal, Conjunctiva Clear ENT: Positive: Pharynx normal Respiratory/Lung Sounds: Positive: Clear to Auscultation, Breath Sounds Present Cardiovascular: Positive: Normal, RRR Abdomen Description: Positive: Soft, Other: - mild suprapubic tenderness Bowel Sounds: Positive: Present Musculoskeletal: Positive: Normal Neurological: Positive: Normal Psychiatric: Positive: Normal Diagnostics - Vital Signs Vital Signs Temp Pulse Resp BP Pulse Ox 03/11/19 18:43 97.5 F 97 20 142/68 100 - Laboratory Result Diagrams: 03/11/19 19:50 03/11/19 19:50 Lab Statement: Any lab studies that have been ordered have been reviewed, and results considered in the medical decision making process. - Ultrasound No standard instances Ultrasound Interpretation Completed By: Radiologist Summary of Ultrasound Findings: IMPRESSION: 1. Viable intrauterine with an ultrasound age of 8 weeks 6 days which. correlates to an JONATHAN of 2019 which will be used for the clinical dates. 2. Small subchorionic implantation hemorrhage. Re-Evaluation - Re-Evaluation First Eval Re-Evaluation Time: 20:51 Change: Unchanged Comment: symptoms same Course/Dx - Course Course Of Treatment: 23 year old LMP January 08 presents with vaginal spotting since yesterday. She has been having cramping intermittently for past two days. She has not had an ultrasound yet [facility] She states she has history a miscarriage at 4 months. Is concerned that is having such. She denies any recent illness. No fevers. He admits to some nausea but no vomiting. States she's been having crampy type pain. Denies passing any blood clots. No abnormal vaginal discharge. On exam mild lower abdominal tenderness. blood type 0 positive. urine shows potential uti so will treat with macrobid. transvaginal ultrasound shows small subchorionic hemorrhage. discussed should follow up with ob in 2 days. likely bleeding from subchorionic. patient understand and agrees with plan. - Differential Diagnosis/HQI/PQRI: Spontaneous , Threatened , Ectopic - Diagnoses Provider Diagnoses: Vaginal bleeding during , UTI (urinary tract infection), Subchorionic bleed Discharge - Sign-Out/Discharge Documenting (check all that apply): Patient Departure Patient Received Moderate/Deep Sedation with Procedure: No - Discharge Plan Condition: Good Disposition: HOME Prescriptions: Nitrofurantoin Monohyd/M-Cryst [Macrobid 100 mg Capsule] 100 mg PO BID #9 cap Patient Education Materials: Threatened Miscarriage (ED), Urinary Tract Infection in (ED) Referrals: Yanet Epps MD [Medical Doctor] - Additional Instructions: take macrobid twice a day for 5 days The education provided is for your information. You may or may not have a miscarriage at this point. Follow up with OBGYN as will need repeat HCG level drawn to trend Return to ED if develop severe abdominal pain, fever, severe bleeding with symptoms such as lightheadedness or any new or worsening symptoms - Billing Disposition and Condition Condition: GOOD Disposition: Home
[2019-03-11 20:04] LABS: ABS Basophils 0.1 10^3/ul (0-0.2); ABS Eosinophils 0.3 10^3/ul (0-0.6); ABS Lymphocytes 2.2 10^3/ul (1.0-4.8); ABS Monocytes 0.8 10^3/ul (0-0.8); ABS Neutrophils 6.7 10^3/ul (1.5-7.7); Eosinophil % 2.8 %; Hematocrit 35 % (35-47); Hemoglobin 11.7 g/dL (12.0-16.0); Lymphocyte % 21.6 %; Mean Corpuscular HGB Conc 34 g/dL (31-36); Mean Corpuscular Hemoglobin 28 pg (27-31); Mean Corpuscular Volume 84 fL (80-97); Mean Platelet Volume 7.3 fL (7.4-10.4); Platelet Count 327 10^3/uL (150-450); Red Blood Count 4.13 10^6 /uL (3.70-4.87); Red Cell Distribution Width 15 % (10-15); White Blood Count 9.9 10^3/uL (3.5-10.8)
[2019-03-11 20:11] LABS: Activated Partial Thrombo Time 36.2 seconds (26.0-38.0); INR 1.02 (0.82-1.09)
[2019-03-11 20:20] LABS: Albumin 3.8 g/dL (3.2-5.2); Albumin/Globulin Ratio 1.3 (1-3); BUN/Creatinine Ratio 18.2 (8-20); Calcium 8.9 mg/dL (8.6-10.3); EGFR African American 112.4 (>60); EGFR Non-African American 92.9 (>60); Globulin 2.9 g/dL (2-4); Potassium 3.8 mmol/L (3.5-5.0); Total Bilirubin 0.2 mg/dL (0.2-1.0); Total Protein 6.7 g/dL (6.4-8.9)
[2019-03-11 20:25] LABS: Urine Appearance Clear; Urine Bacteria 1+ (Absent); Urine Bilirubin Negative (Negative); Urine Blood 3+ (Negative); Urine Color Yellow; Urine Glucose Negative (Negative); Urine Ketones Negative (Negative); Urine Nitrite Negative (Negative); Urine Protein Negative (Negative); Urine Red Blood Cell 1+(3-5/hpf) (Absent); Urine Specific Gravity 1.029 (1.010-1.030); Urine Squamous Epithelial Cell Present (Absent); Urine Urobilinogen Negative (Negative); Urine White Blood Cell 3+(>20/hpf) (Absent)
[2019-03-11] MEDS ORDERED: Nitrofurantoin Macrocrystals* 100 MG CAP PO ONE (21:59)
[2019-03-11 22:52] VITALS: BP 129/84
[2019-03-12 11:52] LABS: Neisseria gonorrhoeae (GC) RNA Negative (Negative)
== END 2019-03-11 22:51 | disposition home or self-care (01) ==
LOC: ED 18:41
DX: R10.9 Unspecified abdominal pain (principal); Z87.891 Personal history of nicotine dependence; O20.9 Hemorrhage in early pregnancy, unspecified; Z3A.01 Less than 8 weeks gestation of pregnancy; N39.0 Urinary tract infection, site not specified
CPT/HCPCS: 36415; 76817; 80053; 81003; 81015; 84702; 85025; 85610; 85730; 86900; 86901; 87077; 87086; 87491; 87591; 99283; A9270-GY

== ENCOUNTER 2019-03-14 03:33 | Emergency (ER) | payer MEDICAID ==
--- NOTE | 2019-03-14 03:49 | ED ---
- HPI Summary HPI Summary: 23 year old F presenting to [facility] with a chief complaint of pelvic pain since 03 :00 today. The patient rates the pain 10/10 in severity. Symptoms aggravated by nothing. Symptoms alleviated by nothing. Patient reports vaginal bleeding. She reports vomiting. Patient states she is 8 weeks . She states she felt a clot come out. Patient had a miscarriage in 2017. /A1 - History of Current Complaint Chief Complaint: EDVaginalBleeding Stated Complaint: VAGINAL BLEEDING PER PT Time Seen by Provider: 03/14/19 03:43 Hx Obtained From: Patient Chief Complaint: Pain, Vaginal Bleeding, Other: - vomiting Onset/Duration: Started Hours Ago - 1, Still Present Timing: Constant Severity: Severe Current Severity: Severe Pain Intensity: 10 Location of Pain: None Aggravating Factors: Nothing Alleviating Factors: Nothing - Assessment Hx Now: No Hx Hysterectomy: No - Additional Pertinent History Primary Care Physician: AR - Allergies/Home Medications Allergies/Adverse Reactions: Allergies Allergy/AdvReac Type Severity Reaction Status Date / Time amoxicillin Allergy Rash And Verified 03/14/19 04:00 Itching cefadroxil Allergy Hives Verified 03/14/19 04:00 clindamycin Allergy Nausea And Verified 03/14/19 04:00 Vomiting PMH/Surg Hx/FS Hx/Imm Hx Previously Healthy: No Endocrine/Hematology History: Reports: Other Endocrine/Hematological Disorders - morbid obesity Denies: Hx Anticoagulant Therapy, Hx Blood Disorders, Hx Blood Transfusions, Hx Bone Marrow Disease, Hx Diabetes, Hx Thyroid Disease, Hx Anemia, Hx Unexplained Bleeding Cardiovascular History: Denies: Hx Hypertension Respiratory History: Reports: Hx Asthma Denies: Hx Chronic Obstructive Pulmonary Disease (COPD) GI History: Denies: Hx Gastrointestinal Bleed, Hx Hiatal Hernia, Hx Ulcer History: Reports: Other Problems/Disorders - tubo-ovarian abscess 02/2018 Denies: Hx Acute Renal Failure, Hx Benign Prostatic Hyperplasia, Hx Chronic Renal Failure Sensory History: Denies: Hx Cataracts, Hx Contacts or Glasses, Hx Eye Injury, Hx Eye Prosthesis, Hx Glaucoma, Hx Legally Blind, Hx Macular Degeneration, Hx Hearing Aid Opthamlomology History: Denies: Hx Cataracts, Hx Contacts or Glasses, Hx Eye Injury, Hx Eye Prosthesis, Hx Glaucoma, Hx Legally Blind, Hx Macular Degeneration Neurological History: Denies: Hx Headaches, Hx Migraine, Hx Nerve Disease, Hx Seizures, Hx Spinal Cord Injury, Other Neuro Impairments/Disorders Psychiatric History: Reports: Hx Anxiety, Hx Eating Disorder - binging & purging age 11-18, Hx Depression Denies: Hx Suicide Attempt, Hx of Violent Episodes Against Others - Cancer History Hx Chemotherapy: No Hx Radiation Therapy: No Hx Palliative Cancer Treatment: No - Surgical History Surgery Procedure, Year, and Place: wisdom teeth extraction 2013 Hx Anesthesia Reactions: No Infectious Disease History: Yes Infectious Disease History: Reports: Hx Clostridium Difficile - 2014 Denies: Hx Hepatitis, Hx Human Immunodeficiency Virus (HIV), Hx of Known/ Suspected MRSA, Hx Shingles, Hx Tuberculosis, Hx Known/Suspected VRE, Hx Known/ Suspected VRSA, History Other Infectious Disease, Traveled Outside the [place] in Last 30 Days - Family History Known Family History: Positive: Hypertension, Diabetes, Respiratory Disease - asthma, Other - LUNG CANCER AND ALCOHOLISM - Social History Alcohol Use: None Hx Substance Use: Yes Substance Use Type: Reports: Marijuana Substance Use Comment - Amount & Last Used: once a month Hx Tobacco Use: Yes Smoking Status (MU): Former Smoker Type: Cigarettes Amount Used/How Often: up to 2 cigs weekly Have You Smoked in the Last Year: No Review of Systems Positive: Vomiting Positive: other - pelvic pain, vaginal bleeding All Other Systems Reviewed And Are Negative: Yes Physical Exam - Summary Physical Exam Summary: VITAL SIGNS: Reviewed. GENERAL: Patient is morbidly FEMALE who is lying comfortable in the stretcher. Patient is not in any acute respiratory distress. HEAD AND FACE: No signs of trauma. No ecchymosis, hematomas or skull depressions. No sinus tenderness. EYES: PERRLA, EOMI x 2, No injected conjunctiva, no nystagmus. EARS: Hearing grossly intact. Ear canals and tympanic membranes are within normal limits. MOUTH: Oropharynx within normal limits. NECK: Supple, trachea is midline, no adenopathy, no JVD, no carotid bruit, no c- spine tenderness, neck with full ROM CHEST: Symmetric, no tenderness at palpation LUNGS: Clear to auscultation bilaterally. No wheezing or crackles. CVS: Regular rate and rhythm, S1 and S2 present, no murmurs or gallops appreciated. ABDOMEN: Soft, non-tender. No signs of distention. No rebound no guarding, and no masses palpated. Bowel sounds are normal. EXTREMITIES: FROM in all major joints, no edema, no cyanosis or clubbing. NEURO: Alert and oriented x 3. No acute neurological deficits. Speech is normal and follows commands. SKIN: Dry and warm Genital exam chaperoned by nurses Cecille and Vanessa: There is blood over the external genitalia. There is no product of conception I could see. There is a mild amount of blood in the vagina, no active bleeding. The cervix seems to be closed and posterior. The exam could be limited d/t patient's sighs. Patient is anxious and crying. - Physical Exam Triage Information Reviewed: Yes Vital Signs Reviewed: Yes Diagnostics - Vital Signs Vital Signs Temp Pulse Resp BP Pulse Ox 03/14/19 03:35 97.9 F 106 24 115/89 98 - Laboratory Result Diagrams: 03/14/19 04:15 03/14/19 04:15 Lab Statement: Any lab studies that have been ordered have been reviewed, and results considered in the medical decision making process. Course/Dx - Course Course Of Treatment: 23 year old F presenting to [facility] with a chief complaint of pelvic pain, vaginal bleeding, and vomiting since 03:00 today.Patient states she is 8 weeks . She states she felt a clot come out. /A1. Physical exam findings: She is morbidly obese. There is blood over the external genitalia. There is no product of conception I could see. There is a mild amount of blood in the vagina, no active bleeding. The cervix seems to be closed and posterior. The exam could be limited d/t patient's sighs. Patient is anxious and crying. Test results with no significant abnormalities except for Hgb 11.7, RDW 16, MPV 7.2, glucose 113, AST 10. In the ED course, the patient was given morphine, Reglan, and lactated ringers. Patient will be signed out to Dr. Stevenson upon shift change at 07:00 03/14/19, awaiting US Transvaginal and pending disposition. - Diagnoses Provider Diagnoses: Miscarriage Discharge - Sign-Out/Discharge Documenting (check all that apply): Sign-Out Patient Signing out patient TO: Joe Stevenson - Awaiting US Transvaginal, pending disposition Patient Received Moderate/Deep Sedation with Procedure: No - Discharge Plan Condition: Stable Referrals: No Primary Care Phys,NOPCP [Primary Care Provider] - - Attestation Statements Document Initiated by Scribe: Yes Documenting Scribe: Mi Campuzano Provider For Whom Scribe is Documenting (Include Credential): Payton Santana MD Scribe Attestation: IMi, scribed for Payton Santana MD on 03/14/19 at 0625. Status of Scribe Document: Ready
[2019-03-14] MEDS: Morphine 4 MG/ML VIAL (1 ml) 4 MG/ML VIAL IV ONE (04:10)
[2019-03-14] MEDS: Lactated Ringers 1000 ML Bag* 1,000 ML IV SCH (04:10)
[2019-03-14] MEDS: Metoclopramide IV* 5 MG/ML 2 ML VIAL IV SLOW PU ONE (04:10)
[2019-03-14 04:23] LABS: ABS Basophils 0.1 10^3/ul (0-0.2); ABS Eosinophils 0.3 10^3/ul (0-0.6); ABS Lymphocytes 1.4 10^3/ul (1.0-4.8); ABS Monocytes 0.7 10^3/ul (0-0.8); ABS Neutrophils 6.7 10^3/ul (1.5-7.7); Eosinophil % 3.3 %; Hematocrit 35 % (35-47); Hemoglobin 11.7 g/dL (12.0-16.0); Lymphocyte % 15.7 %; Mean Corpuscular HGB Conc 33 g/dL (31-36); Mean Corpuscular Hemoglobin 28 pg (27-31); Mean Corpuscular Volume 84 fL (80-97); Mean Platelet Volume 7.2 fL (7.4-10.4); Platelet Count 345 10^3/uL (150-450); Red Blood Count 4.22 10^6 /uL (3.70-4.87); Red Cell Distribution Width 16 % (10-15); White Blood Count 9.2 10^3/uL (3.5-10.8)
[2019-03-14 04:41] LABS: Albumin 3.8 g/dL (3.2-5.2); Albumin/Globulin Ratio 1.4 (1-3); BUN/Creatinine Ratio 14.5 (8-20); Calcium 8.6 mg/dL (8.6-10.3); EGFR African American 127.6 (>60); EGFR Non-African American 105.4 (>60); Globulin 2.8 g/dL (2-4); Potassium 3.8 mmol/L (3.5-5.0); Total Bilirubin 0.3 mg/dL (0.2-1.0); Total Protein 6.6 g/dL (6.4-8.9)
--- NOTE | 2019-03-14 07:31 | ED ---
Progress - Progress Note Progress Note: The patient is a sign-out from Dr. Santana to Dr. Stevenson at the change of shifts at 0700 at 03/14/19 pending transvaginal US results and disposition. Transvaginal US Impression: The constellation of findings is consistent with failed first trimester gestation. She is diagnosed with miscarriage. I discussed the case with Dr. Epps, BOOTH OPERATOR, at she clears the patient for discharge with follow up with her tomorrow. Patient understands and agrees with this plan. - Results/Orders Results/Orders: Transvaginal US: The constellation of findings is consistent with failed first trimester gestation. ED physician has reviewed this radiology report. Re-Evaluation - Re-Evaluation First Eval Re-Evaluation Time: 10:10 Comment: I discussed discharge plan with the patient. Course/Dx - Course Course Of Treatment: The patient is a sign-out from Dr. Santana to Dr. Stevenson at the change of shifts at 0700 at 03/14/19 pending transvaginal US results and disposition. Transvaginal US Impression: The constellation of findings is consistent with failed first trimester gestation. She is diagnosed with miscarriage. I discussed the case with Dr. Epps, BOOTH OPERATOR, at she clears the patient for discharge with follow up with her tomorrow. Patient understands and agrees with this plan. - Diagnoses Provider Diagnoses: Miscarriage - Provider Notifications Discussed Care Of Patient With: Yanet Epps - BOOTH OPERATOR Time Discussed With Above Provider: 10:00 Instructed by Provider To: Other - I discussed the patient's case with Dr. Epps, and she recommends that the patient be discharged with a follow up in her office tomorrow. Discharge - Sign-Out/Discharge Documenting (check all that apply): Patient Departure - Patient will be discharged home., Receiving Sign-Out Receiving patient FROM: Payton Santana - Patient is a sign-out from Dr. Santana at shift change pending transvaginal US results and disposition. Patient Received Moderate/Deep Sedation with Procedure: No - Discharge Plan Condition: Stable Disposition: HOME Patient Education Materials: Miscarriage (ED) Referrals: Yanet Epps MD [Medical Doctor] - 1 Day Additional Instructions: Follow-up with Dr. Epps, BOOTH OPERATOR, tomorrow. Return to the Emergency Department for any new or worsening symptoms. - Billing Disposition and Condition Condition: STABLE Disposition: Home - Attestation Statements Document Initiated by Hakeem: Yes Documenting Scribe: Angel Conrad Provider For Whom Hakeem is Documenting (Include Credential): Dr. Joe Stevenson MD Scribe Attestation: Angel Garcia, scribed for Dr. Joe Stevenson MD on 03/14/19 at 1039. Scribe Documentation Reviewed: Yes Provider Attestation: The documentation as recorded by the Angel lizarraga accurately reflects the service I personally performed and the decisions made by me, Dr. Joe Stevenson MD Status of Scribe Document: Ready
[2019-03-14 08:29] LABS: Urine Appearance Cloudy; Urine Bacteria Absent (Absent); Urine Bilirubin Negative (Negative); Urine Blood 3+ (Negative); Urine Color Yellow; Urine Glucose Negative (Negative); Urine Ketones Negative (Negative); Urine Nitrite Negative (Negative); Urine Protein 1+(30 mg/dL) (Negative); Urine Red Blood Cell 3+(>10/hpf) (Absent); Urine Specific Gravity 1.013 (1.010-1.030); Urine Squamous Epithelial Cell Present (Absent); Urine Urobilinogen Negative (Negative); Urine White Blood Cell Absent (Absent)
[2019-03-14 10:34] VITALS: BP 149/79
== END 2019-03-14 10:33 | disposition home or self-care (01) ==
LOC: ED 03:33
DX: O03.9 Complete or unspecified spontaneous abortion without complication (principal); Z3A.08 8 weeks gestation of pregnancy; Z87.891 Personal history of nicotine dependence
CPT/HCPCS: 36415; 76817; 80053; 81003; 81015; 84702; 85025; 86850; 86900; 86901; 87086; 96361; 96374; 96375; 99283; J2270; J2765

== ENCOUNTER 2019-06-15 13:14 | Emergency (ER) | payer MEDICAID ==
[2019-06-15] MEDS ORDERED: Ketorolac INJ* 30 MG/ML 1 ML VIAL IV PUSH ONE ×2 (14:46)
[2019-06-15] MEDS ORDERED: Ondansetron INJ* 2 MG/ML VIAL IV ONE (15:04)
[2019-06-15] MEDS ORDERED: Ondansetron INJ* 2 MG/ML VIAL ONE ×2 (15:04)
[2019-06-15 15:13] LABS: Urine Appearance Cloudy; Urine Bacteria Absent (Absent); Urine Bilirubin Negative (Negative); Urine Blood Negative (Negative); Urine Color Amber; Urine Glucose Negative (Negative); Urine Ketones Trace (Negative); Urine Nitrite Negative (Negative); Urine Protein Negative (Negative); Urine Red Blood Cell 2+(6-10/hpf) (Absent); Urine Specific Gravity 1.031 (1.010-1.030); Urine Squamous Epithelial Cell Present (Absent); Urine Urobilinogen Negative (Negative); Urine White Blood Cell 3+(>20/hpf) (Absent)
[2019-06-15 15:20] LABS: Rapid Strep Molecular Negative (Negative)
[2019-06-15 15:41] LABS: ABS Eosinophils 0.2 10^3/ul (0-0.6); ABS Lymphocytes 1.4 10^3/ul (1.0-4.8); ABS Monocytes 0.8 10^3/ul (0-0.8); ABS Neutrophils 9.5 10^3/ul (1.5-7.7); Eosinophil % 1.8 %; Hematocrit 37 % (35-47); Hemoglobin 12.1 g/dL (12.0-16.0); Lymphocyte % 11.9 %; Mean Corpuscular HGB Conc 33 g/dL (31-36); Mean Corpuscular Hemoglobin 28 pg (27-31); Mean Corpuscular Volume 84 fL (80-97); Mean Platelet Volume 7.1 fL (7.4-10.4); Platelet Count 380 10^3/uL (150-450); Red Blood Count 4.35 10^6 /uL (3.70-4.87); Red Cell Distribution Width 15 % (10-15); White Blood Count 11.9 10^3/uL (3.5-10.8)
[2019-06-15 15:53] LABS: ALT 24 U/L (7-52); AST 18 U/L (13-39); Albumin 4.2 g/dL (3.2-5.2); Albumin/Globulin Ratio 1.4 (1-3); Alkaline Phosphatase 78 U/L (34-104); Anion Gap 6 mmol/L (2-11); Blood Urea Nitrogen 10 mg/dL (6-24); CO2 Carbon Dioxide 28 mmol/L (22-32); Calcium 8.9 mg/dL (8.6-10.3); Chloride 103 mmol/L (101-111); EGFR African American 111.4 (>60); EGFR Non-African American 92.1 (>60); Globulin 3.1 g/dL (2-4); Glucose 97 mg/dL (70-100); Potassium 3.8 mmol/L (3.5-5.0); Sodium 137 mmol/L (135-145); Total Protein 7.3 g/dL (6.4-8.9)
[2019-06-15 15:59] LABS: HCG Pregnancy < 0.60 mIU/mL
[2019-06-15] MEDS ORDERED: cefTRIAXone VIAL(*) 250 MG VIAL IM ONE (16:23)
[2019-06-15] MEDS ORDERED: DOXYcycline CAP(*) 100 MG PO ONE (16:23)
[2019-06-15] MEDS ORDERED: Lidocaine 1% MPF ** 5 ML VIAL IM ONE (16:23)
--- NOTE | 2019-06-15 16:52 | ED ---
Abdominal Pain/Female - HPI Summary HPI Summary: Pt. is a 24 y.o female who presents to the ER with numerous complaints. Pt.'s main complaint is low back pain for several days. Denies injury. Pt. notes pain radiates into pelvis and is similar to pain she's had in the past with ovarian cyst. Pt. also not a recent new sexual partner and has noted a foul smelling vaginal discharge. Pt. also notes sore throat. Otherwise denies fever, V/D, rash. Pt. has a hx of STIs, PID, and TOA. No current modifying factors. Sxs are moderate in severity. - History of Current Complaint Chief Complaint: EDBackInjuryPain Stated Complaint: LOW BACK PAIN PER PT Time Seen by Provider: 06/15/19 14:13 Hx Obtained From: Patient Hx Last Menstrual Period: 01/09/19 Pain Intensity: 10 Allergies/Adverse Reactions: Allergies Allergy/AdvReac Type Severity Reaction Status Date / Time amoxicillin Allergy Rash And Verified 06/15/19 13:15 Itching cefadroxil Allergy Hives Verified 06/15/19 13:15 clindamycin Allergy Nausea And Verified 06/15/19 13:15 Vomiting Home Medications: Home Medications ValACYclovir (*) [Valtrex 1 GM(*)] 1 gm PO BID 06/15/19 [History Confirmed 06/15] PMH/Surg Hx/FS Hx/Imm Hx Previously Healthy: Yes Endocrine/Hematology History: Reports: Other Endocrine/Hematological Disorders - morbid obesity Denies: Hx Anticoagulant Therapy, Hx Blood Disorders, Hx Blood Transfusions, Hx Bone Marrow Disease, Hx Diabetes, Hx Thyroid Disease, Hx Anemia, Hx Unexplained Bleeding Cardiovascular History: Denies: Hx Hypertension Respiratory History: Reports: Hx Asthma Denies: Hx Chronic Obstructive Pulmonary Disease (COPD) GI History: Denies: Hx Gastrointestinal Bleed, Hx Hiatal Hernia, Hx Ulcer History: Reports: Other Problems/Disorders - tubo-ovarian abscess 02/2018 Denies: Hx Acute Renal Failure, Hx Benign Prostatic Hyperplasia, Hx Chronic Renal Failure Sensory History: Denies: Hx Cataracts, Hx Contacts or Glasses, Hx Eye Injury, Hx Eye Prosthesis, Hx Glaucoma, Hx Legally Blind, Hx Macular Degeneration, Hx Hearing Aid Opthamlomology History: Denies: Hx Cataracts, Hx Contacts or Glasses, Hx Eye Injury, Hx Eye Prosthesis, Hx Glaucoma, Hx Legally Blind, Hx Macular Degeneration Neurological History: Denies: Hx Headaches, Hx Migraine, Hx Nerve Disease, Hx Seizures, Hx Spinal Cord Injury, Other Neuro Impairments/Disorders Psychiatric History: Reports: Hx Anxiety, Hx Eating Disorder - binging & purging age [age], Hx Depression Denies: Hx Suicide Attempt, Hx of Violent Episodes Against Others - Cancer History Hx Chemotherapy: No Hx Radiation Therapy: No Hx Palliative Cancer Treatment: No - Surgical History Surgery Procedure, Year, and Place: wisdom teeth extraction 2012 Hx Anesthesia Reactions: No Infectious Disease History: No Infectious Disease History: Reports: Hx Clostridium Difficile - 2014 Denies: Hx Hepatitis, Hx Human Immunodeficiency Virus (HIV), Hx of Known/ Suspected MRSA, Hx Shingles, Hx Tuberculosis, Hx Known/Suspected VRE, Hx Known/ Suspected VRSA, History Other Infectious Disease, Traveled Outside the [place] in Last 30 Days - Family History Known Family History: Positive: Hypertension, Diabetes, Respiratory Disease - asthma, Other - LUNG CANCER AND ALCOHOLISM - Social History Occupation: Employed Full-time Lives: With Family Alcohol Use: None Hx Substance Use: Yes Substance Use Type: Reports: Marijuana Substance Use Comment - Amount & Last Used: once a month Hx Tobacco Use: Yes Smoking Status (MU): Former Smoker Type: Cigarettes Amount Used/How Often: up to 2 cigs weekly Have You Smoked in the Last Year: No Review of Systems Constitutional: Negative Negative: Fever, Chills Positive: Sore Throat Cardiovascular: Negative Respiratory: Negative Positive: Abdominal Pain. Negative: Vomiting, Diarrhea, Nausea Positive: discharge Skin: Negative Negative: Rash Neurological: Negative All Other Systems Reviewed And Are Negative: Yes Physical Exam Triage Information Reviewed: Yes Vital Signs On Initial Exam: Initial Vitals Temp Pulse Resp BP Pulse Ox 97.8 F 104 20 138/89 98 06/15/19 13:15 06/15/19 13:15 06/15/19 13:15 06/15/19 13:15 06/15/19 13:15 Vital Signs Reviewed: Yes Appearance: Positive: Pain Distress - Pt. sitting in chair crying with tears running down her face. Nontoxic. Skin: Positive: Warm, Dry Head/Face: Positive: Normal Head/Face Inspection Eyes: Positive: Normal, EOMI, ESTHELA, Conjunctiva Clear ENT: Positive: Pharyngeal erythema, Tonsillar swelling, Uvula midline. Negative : Tonsillar exudate, Trismus, Muffled voice, Hoarse voice Neck: Positive: Supple Respiratory/Lung Sounds: Positive: Clear to Auscultation, Breath Sounds Present Cardiovascular: Positive: Normal, RRR Abdomen Description: Positive: Other: - Morbidly obese. Abd is soft with diffuse tenderness to lower abd. with guarding. No CVA tenderness. Musculoskeletal: Positive: Other - Pelvic exam performed with pt.'s nurse, Brandy. External genitalia unremarkable. Speculum exam reveals a moderate amout of mucopurulent discharge from cervix. +CMT. Cultures obtained. Neurological: Positive: Normal, CN Intact II-III Psychiatric: Positive: Affect/Mood Appropriate Diagnostics - Vital Signs Vital Signs Temp Pulse Resp BP Pulse Ox 06/15/19 16:00 80 97 06/15/19 15:31 81 178/82 99 06/15/19 13:15 97.8 F 104 20 138/89 98 - Laboratory Lab Results: Lab Results 06/15/19 06/15/19 06/15/19 Range/Units 14:50 14:58 15:29 WBC 11.9 H (3.5-10.8) 10^3/uL RBC 4.35 (3.70-4.87) 10^6 /uL Hgb 12.1 (12.0-16.0) g/dL Hct 37 (35-47) % MCV 84 (80-97) fL MCH 28 (27-31) pg MCHC 33 (31-36) g/dL RDW 15 (10-15) % Plt Count 380 (150-450) 10^3/uL MPV 7.1 L (7.4-10.4) fL Neut % (Auto) 79.5 % Lymph % (Auto) 11.9 % [place] % (Auto) 6.4 % Eos % (Auto) 1.8 % Baso % (Auto) 0.4 % Absolute Neuts (auto) 9.5 H (1.5-7.7) 10^3/ul Absolute Lymphs (auto) 1.4 (1.0-4.8) 10^3/ul Absolute Monos (auto) 0.8 (0-0.8) 10^3/ul Absolute Eos (auto) 0.2 (0-0.6) 10^3/ul Absolute Basos (auto) 0.0 (0-0.2) 10^3/ul Absolute Nucleated RBC 0.0 10^3/ul Nucleated RBC % 0.0 Sodium (135-145) mmol/L Potassium (3.5-5.0) mmol/L Chloride (101-111) mmol/L Carbon Dioxide (22-32) mmol/L Anion Gap (2-11) mmol/L BUN (6-24) mg/dL Creatinine (0.51-0.95) mg/dL Est GFR ( Amer) (>60) Est GFR (Non-Af Amer) (>60) BUN/Creatinine Ratio (8-20) Glucose (70-100) mg/dL Calcium (8.6-10.3) mg/dL Total Bilirubin (0.2-1.0) mg/dL AST (13-39) U/L ALT (7-52) U/L Alkaline Phosphatase (34-104) U/L C-Reactive Protein (<8.01) mg/L Total Protein (6.4-8.9) g/dL Albumin (3.2-5.2) g/dL Globulin (2-4) g/dL Albumin/Globulin Ratio (1-3) Beta HCG, Quant mIU/mL Urine Color [place] Urine Appearance Cloudy Urine pH 5.0 (5-9) Ur Specific [place] 1.031 H (1.010-1.030) Urine Protein Negative (Negative) Urine Ketones Trace A (Negative) Urine Blood Negative (Negative) Urine Nitrate Negative (Negative) Urine Bilirubin Negative (Negative) Urine Urobilinogen Negative (Negative) Ur Leukocyte Esterase 3+ A (Negative) Urine WBC (Auto) 3+(>20/hpf) A (Absent) Urine RBC (Auto) 2+(6-10/hpf) A (Absent) Ur Squamous Epith Cells Present A (Absent) Urine Bacteria Absent (Absent) Urine Glucose Negative (Negative) Group A Strep Rapid Negative (Negative) 06/15/19 Range/Units 15:29 WBC (3.5-10.8) 10^3/uL RBC (3.70-4.87) 10^6 /uL Hgb (12.0-16.0) g/dL Hct (35-47) % MCV (80-97) fL MCH (27-31) pg MCHC (31-36) g/dL RDW (10-15) % Plt Count (150-450) 10^3/uL MPV (7.4-10.4) fL Neut % (Auto) % Lymph % (Auto) % [place] % (Auto) % Eos % (Auto) % Baso % (Auto) % Absolute Neuts (auto) (1.5-7.7) 10^3/ul Absolute Lymphs (auto) (1.0-4.8) 10^3/ul Absolute Monos (auto) (0-0.8) 10^3/ul Absolute Eos (auto) (0-0.6) 10^3/ul Absolute Basos (auto) (0-0.2) 10^3/ul Absolute Nucleated RBC 10^3/ul Nucleated RBC % Sodium 137 (135-145) mmol/L Potassium 3.8 (3.5-5.0) mmol/L Chloride 103 (101-111) mmol/L Carbon Dioxide 28 (22-32) mmol/L Anion Gap 6 (2-11) mmol/L BUN 10 (6-24) mg/dL Creatinine 0.77 (0.51-0.95) mg/dL Est GFR ( Amer) 111.4 (>60) Est GFR (Non-Af Amer) 92.1 (>60) BUN/Creatinine Ratio 13.0 (8-20) Glucose 97 (70-100) mg/dL Calcium 8.9 (8.6-10.3) mg/dL Total Bilirubin 0.60 (0.2-1.0) mg/dL AST 18 (13-39) U/L ALT 24 (7-52) U/L Alkaline Phosphatase 78 (34-104) U/L C-Reactive Protein 15.80 H (<8.01) mg/L Total Protein 7.3 (6.4-8.9) g/dL Albumin 4.2 (3.2-5.2) g/dL Globulin 3.1 (2-4) g/dL Albumin/Globulin Ratio 1.4 (1-3) Beta HCG, Quant < 0.60 mIU/mL Urine Color Urine Appearance Urine pH (5-9) Ur Specific [place] (1.010-1.030) Urine Protein (Negative) Urine Ketones (Negative) Urine Blood (Negative) Urine Nitrate (Negative) Urine Bilirubin (Negative) Urine Urobilinogen (Negative) Ur Leukocyte Esterase (Negative) Urine WBC (Auto) (Absent) Urine RBC (Auto) (Absent) Ur Squamous Epith Cells (Absent) Urine Bacteria (Absent) Urine Glucose (Negative) Group A Strep Rapid (Negative) Result Diagrams: 06/15/19 15:29 06/15/19 15:29 Lab Statement: Any lab studies that have been ordered have been reviewed, and results considered in the medical decision making process. Abdominal Pain Fem Course/Dx - Course Course Of Treatment: Pt. with the above complaints. She afebrile. Pt. given toradol for pain. Labs and u/s ordered. Labs shows WBC of 12.3. Negative . Speculum exam as noted above. Pelvic U/S per radiology: IMPRESSION: 3.7 CM RIGHT OVARIAN CYST. Will treat pt. for PID with rocephin and doxy x 14 days. Pt. to f.u with her [employer] WORKER in 2-3 days. A day of lortab rx. STATIONS SUPERINTENDENT reviewed. Advised to avod sexual activtity until sxs resolve and to always use sexual protection. Pending cultures. Pt. understands and agrees with plan. - Diagnoses Differential Diagnosis: Positive: Appendicitis, Ectopic , Pelvic Inflammatory Disease, , Urinary Tract Infection Provider Diagnoses: PID (acute pelvic inflammatory disease) Discharge ED - Sign-Out/Discharge Documenting (check all that apply): Patient Departure Patient Received Moderate/Deep Sedation with Procedure: No - Discharge Plan Condition: Good Disposition: HOME Prescriptions: DOXYcycline CAP(*) [DOXYcycline 100MG CAP(*)] 100 mg PO BID #28 cap Doxycycline Monohydrate 100 mg PO BID 14 Days #28 capsule Hydrocodone/Acetaminophen [Hydrocodone-Acetamin 5-325 mg] 1 each PO Q6H #6 tablet MDD 4 Patient Education Materials: Pelvic Inflammatory Disease (ED), Ovarian Cyst (ED ) Forms: *Work Release Referrals: [facility] [Outside] Bernard Rhodes MD [Medical Doctor] - Additional Instructions: Follow up with your REMEL[facility] WORKER within one week Take antibiotic as directed Avoid sexual activity until symptoms resolve Always use sexual protection Return to ER if symptoms change or worsen - Billing Disposition and Condition Condition: GOOD Disposition: Home
[2019-06-15 17:09] VITALS: BP 157/84
--- NOTE | 2019-06-17 12:25 | PN ---
Progress Note - Progress Note Date of Service: 06/16/19 Note: Positive reema. Attempted to call pt. today at 1220 but line rang busy. No voicemail. Rx for flagyl sent to pharmacy. Will send letter.
[2019-06-18 12:46] LABS: Chlamydia trachomatis NAA Positive (Negative); Neisseria gonorrhoeae (GC) NAA Negative (Negative)
--- NOTE | 2019-06-18 15:05 | PN ---
Progress Note - Progress Note Date of Service: 06/18/19 Note: patient chlamydia came back positive. sent script for azithromycin 1gm. attempted to call patient and no vm set up. will try tomorrow and if not will send letter
== END 2019-06-15 17:09 | disposition home or self-care (01) ==
LOC: ED 13:14
DX: N73.9 Female pelvic inflammatory disease, unspecified (principal); A74.9 Chlamydial infection, unspecified; Z87.891 Personal history of nicotine dependence; E66.01 Morbid (severe) obesity due to excess calories; N83.201 Unspecified ovarian cyst, right side
CPT/HCPCS: 36415; 76830; 80053; 81003; 81015; 84702; 85025; 86140; 87086; 87088; 87480; 87491; 87510; 87591; 87651; 87661; 96372; 96374; 96375; 99283; A9270-GY; J0696; J1885; J2405

== ENCOUNTER 2019-08-07 10:23 | Emergency (ER) | payer MEDICAID, OTHER ==
--- OUTSIDE RECORDS SUMMARY | 2019-08-07 10:29 | XMS REPORT | Continuity of Care Document ---
:1995 External Reference #:[id number] Author Name Rajani Craig MD (transmitted by agent of provider Karen Doshi) Address [address] [place] [address] Problems Active Problems Provider Date Herpes simplex type 2 infection Ester Chahal CNM Onset: 10/02/2017 Body mass index 40+ - severely obese Ester Chahal CNM Onset: 2019 Social History Type Date Description Comments Sex Unknown Cigarette Use Former Cigarette Smoker ETOH Use Occasionally consumes alcohol Recreational Drug Use Denies Drug Use Tobacco Use Start: Unknown End: Patient is a former smoker Unknown Smoking Status Reviewed: 06/19/19 Patient is a former smoker Exercise Type/Frequency Exercises regularly Seat Belt/Car Seat Always uses seat belt Allergies, Adverse Reactions, Alerts Active Allergies Reaction Severity Comments Date Clindamycin Hives Severe 11/30/2016 Amoxicillin Hives Severe 11/30/2016 Cefadroxil Serum Sickness Severe 11/30/2016 Medications Active Medications SIG Qnty Indications Ordering Date Provider Metronidazole 1 by mouth twice a 14tabs Purcell 06/19/2019 500mg day for 7 days MD Rafa Tablets Alyacen 135 1 by mouth every 84tabs Purcell 06/19/2019 1-35mg-mcg day/ start the MD Rafa Tablets first day of menses Ventolin HFA Inhale 2 puffs into Unknown the lungs every 6 108(90Base) mcg/Act (six) hours Aerosol Valacyclovir HCL For outbreaks take 60tabs Ester Chahal 500mg 500mg PO q 12 hours CNM Tablets x 3 days. Start within 72 hours of onset of symptoms.For suppression take 500mg daily History Medications Macrobid 1 by mouth twice 14caps Ester Chahal CNM 2019 - 100mg a day x 7 days 03/17/2019 Capsules Medications Administered in Office Medication SIG Qnty Indications Ordering Provider Date PT SCRN Tbco Id as Non User Rajani Craig MD 06/19/2019 Injection Immunizations Description No Information Available Vital Signs Date Vital Result Comment 06/19/2019 2:23pm BP Systolic 114 mmHg BP Diastolic 88 mmHg Body Temperature 97.0 F Height 64 inches 5'4" Weight 329.00 lb BMI (Body Mass Index) 56.5 kg/m2 Last Menstrual Period 0791961 2 Parity 0 03/19/2019 3:57pm BP Systolic 122 mmHg BP Diastolic 80 mmHg Height 64 inches 5'4" Weight 311.00 lb BMI (Body Mass Index) 53.4 kg/m2 Last Menstrual Period [id number] 2 Parity 0 Results Test Date Facility Test Result H/L Range Note Laboratory test 03/19/2019 [facility] HCG 591.25 mIU/ mL [address] [place] [address] [phone] 1 <5.0 Negative 5.0 - 25.0 Indeterminate (Repeat testing recommended after 72 hours) >25.0 Positive Perimenopausal women can display HCG levels of up to 20 mIU/mL Procedures Date Code Description Status 03/19/2019 00900 Echography Transvaginal Completed Medical Devices Description No Information Available Encounters Type Date Location Provider Dx Diagnosis Office Visit 06/19/2019 [facility] Rajani Craig, A56.09 Other chlamydial 2:15p infection of lower genitourinary tract Office Visit 03/19/2019 [facility] Mai Ramirez MD Z30.09 Encounter for oth 3:45p general coun and advice on contraception Assessments Date Code Description Provider 06/19/2019 A56.09 Other chlamydial infection of lower Rajani Craig MD genitourinary tract 03/19/2019 O02.1 Missed Laboratory 03/19/2019 O02.1 Missed Ultrasounds 03/19/2019 Z30.09 Encounter for other general counseling and Mai Ramirez MD advice on contrac 2019 O02.1 Missed Ester Chahal CNM Plan of Treatment No Information Available Functional Status Description No Information Available Mental Status Description No Information Available Referrals Description No Information Available
[2019-08-07 10:37] VITALS: BP 147/67
--- NOTE | 2019-08-07 11:54 | UC ---
Eye Complaint HPI - HPI Summary HPI Summary: WOKE UP 2 DAYS AGO WITH RIGHT EYE CRUSTED SHUT. IS COMPLAINING OF BLURRY VISION , PHOTOPHOBIA, PAIN WITH EXTRAOCULAR MOVEMENTS AND HEADACHE. DENIES NAUSEA. HAD SOME CONGESTION LAST WEEK WHICH HAS RESOLVED. DOES NOT WEAR CONTACTS. - History of Current Complaint Chief Complaint: UCEye Stated Complaint: eye IRRITATION Time Seen by Provider: 08/07/19 10:35 Hx Obtained From: Patient Hx Last Menstrual Period: 08/07/19 Onset/Duration: Sudden Onset, Lasting Days, Still Present Timing: Constant Severity Initially: Moderate Severity Currently: Moderate Pain Intensity: 5 Pain Scale Used: 0-10 Numeric Character: Throbbing, Foreign Body Sensation Aggravating Factor(s): Light, Blinking Alleviating Factor(s): Nothing Associated Signs And Symptoms: Positive: Photophobia, Drainage (Purulent), Vision Impairment Right - Allergies/Home Medications Allergies/Adverse Reactions: Allergies Allergy/AdvReac Type Severity Reaction Status Date / Time amoxicillin Allergy Rash And Verified 08/07/19 10:29 Itching cefadroxil Allergy Hives Verified 08/07/19 10:29 clindamycin Allergy Nausea And Verified 08/07/19 10:29 Vomiting PMH/Surg Hx/FS Hx/Imm Hx Respiratory History: Asthma Other History Of: Negative For: Anticoagulant Therapy - Surgical History Surgical History: Yes Surgery Procedure, Year, and Place: wisdom teeth extraction 2012 - Family History Known Family History: Positive: Hypertension, Diabetes, Respiratory Disease - asthma, Other - LUNG CANCER AND ALCOHOLISM - Social History Alcohol Use: Rare Substance Use Type: Marijuana Substance Use Comment - Amount & Last Used: once a month Smoking Status (MU): Former Smoker Type: Cigarettes Amount Used/How Often: up to 2 cigs weekly Have You Smoked in the Last Year: No When Did the Patient Quit Smoking/Using Tobacco: 2013 Household Exposure Type: Cigarettes - Immunization History Most Recent Influenza Vaccination: Not utd Most Recent Tetanus Shot: UKN Most Recent Pneumonia Vaccination: NONE Review of Systems All Other Systems Reviewed And Are Negative: Yes Constitutional: Positive: Negative Eyes: Positive: Blurred Vision, Drainage, Eye Redness, Photophobia ENT: Positive: Nasal Discharge Respiratory: Positive: Negative Cardiovascular: Positive: Negative Gastrointestinal: Positive: Negative Neurological: Positive: Headache Physical Exam Triage Information Reviewed: Yes Appearance: Well-Nourished, Pain Distress - MODERATE Vital Signs: Initial Vital Signs Temp 98.5 F 08/07/19 10:30 Pulse 73 08/07/19 10:30 Resp 18 08/07/19 10:30 BP 147/67 08/07/19 10:30 Pulse Ox 98 08/07/19 10:30 Vital Signs Reviewed: Yes Eyes: Positive: Conjunctiva Inflamed, Discharge - RIGHT EYE PURULENT DISCHARGE, Other: - EOMI, PERRL ENT: Positive: Hearing grossly normal Neck: Positive: Supple, Nontender, No Lymphadenopathy Respiratory: Positive: No respiratory distress, No accessory muscle use Cardiovascular: Positive: Pulses Normal Abdomen Description: Positive: Soft Musculoskeletal: Positive: No Edema Neurological: Positive: Alert Psychological: Positive: Age Appropriate Behavior Skin: Negative: Rashes Eye Complaint Course/Dx - Course Course Of Treatment: WILL COVER FOR BACTERIAL CONJUNCTIVITIS WITH ERYTHROMYCIN OINTMENT. GIVEN PATIENT WITH SOME RED FLAG SYMPTOMS INCLUDING HEADACHE, PAIN WITH EYE MOVEMENT, BLURRY VISION, PHOTOPHOBIA I AM CONCERNED FOR MORE INSIDIOUS ETIOLOGY OF SYMPTOMS. OPHTHALMOLOGY APPOINTMENT TOMORROW AT [address] HANNON. TO THE ER OVERNIGHT IF HER SYMPTOMS WORSEN. - Differential Dx/Diagnosis Provider Diagnosis: Bacterial conjunctivitis of right eye Discharge ED - Sign-Out/Discharge Documenting (check all that apply): Patient Departure All imaging exams completed and their final reports reviewed: No Studies - Discharge Plan Condition: Stable Disposition: HOME Prescriptions: Erythromycin OPHTH.OINT* [Ilotycin OPHTH.OINT*] 1 applic RIGHT EYE QID #1 tube Patient Education Materials: Conjunctivitis (ED) Forms: *Work Release Referrals: Huy Hannon MD [Medical Doctor] - (YOU HAVE AN APPT TOMORROW AT 9AM) Additional Instructions: I'M PRESCRIBING YOU ANTIBIOTIC OINTMENT TO COVER FOR BACTERIAL CONJUNCTIVITIS HOWEVER GIVEN SOME OF YOUR RED FLAG SYMPTOMS I FEEL OPHTHALMOLOGY EVALUATION IS WARRANTED. YOU HAVE AN APPOINTMENT WITH DR. HUY HANNON TOMORROW AT 9 AM. PLEASE ARRIVE 10-15 MINUTES EARLY FOR ANY NECESSARY PAPERWORK. BRING YOUR INSURANCE CARDS WITH YOU. - Billing Disposition and Condition Condition: STABLE Disposition: Home
== END 2019-08-07 10:55 | disposition home or self-care (01) ==
LOC: UCEAST 10:23
DX: H10.89 Other conjunctivitis (principal); B96.89 Other specified bacterial agents as the cause of diseases classified elsewhere; J45.909 Unspecified asthma, uncomplicated; Z87.891 Personal history of nicotine dependence; Z88.0 Allergy status to penicillin; Z88.1 Allergy status to other antibiotic agents
CPT/HCPCS: 99212; G0463

== ENCOUNTER 2019-09-16 07:05 | Emergency (ER) | payer OTHER ==
--- OUTSIDE RECORDS SUMMARY | 2019-09-16 07:13 | XMS REPORT | Continuity of Care Document ---
:1995 External Reference #:[id number] Author Name Gordy Trejo, OD Address [facility] [address] [place] [address] Problems Description No Information Available Social History Type Date Description Comments Sex Unknown ETOH Use Occasionally consumes alcohol Tobacco Use Start: Unknown Patient has never smoked Smoking Status Reviewed: 08/11/19 Patient has never smoked Allergies, Adverse Reactions, Alerts Active Allergies Reaction Severity Comments Date Amoxicillin 08/08/2019 Cefadroxil 08/08/2019 Clindamycin 08/08/2019 Medications Active Medications SIG Qnty Indications Ordering Date Provider Levofloxacin one drop tid OD x 5ml Gordy Trejo, 08/10/2019 0.5% 1 week OD Solution Doxycycline One Tab bid X 1 60tabs Huy Hannon, 08/09/2019 Monohydrate Week M.D. 100mg Tablets Tobramycin-Dexamethas 1 drop qid OD x 1 5ml Gordy Trejo, 08/08/2019 one week OD 0.3-0.1% Suspension Valacyclovir HCL prn Unknown 500mg Tablets Albuterol Sulfate one treatment Unknown every 4 as needed 0.63mg/3ML Nebulizer History Medications Moxifloxacin HCL 1 drop tid OD x 3ml Gordy Trejo, OD 08/10/2019 - 0.5% 1 week 08/10/2019 Solution Immunizations Description No Information Available Vital Signs Date Vital Result Comment 08/11/2019 12:03pm Intraocular Pressure Right Eye 15 mmHg 08/10/2019 3:29pm Intraocular Pressure Right Eye 15 mmHg Results Description No Information Available Procedures Description No Information Available Medical Devices Description No Information Available Encounters Type Date Location Provider Dx Diagnosis Office Visit 08/11/2019 [facility] Office Gordy Trejo, OD H02.841 Edema of right 10:45a upper eyelid Office Visit 08/10/2019 [facility] Office Gordy Trejo, OD H02.841 Edema of right 10:15a upper eyelid Office Visit 08/08/2019 Main Office Gordy Trejo, OD H02.841 Edema of right 9:00a upper eyelid Assessments Date Code Description Provider 08/11/2019 H02.841 Edema of right upper eyelid Gordy Trejo, OD 08/10/2019 H02.841 Edema of right upper eyelid Gordy Trejo, OD 08/09/2019 H02.841 Edema of right upper eyelid Gordy Trejo, OD 08/08/2019 H02.841 Edema of right upper eyelid Gordy Trejo, OD Plan of Treatment Future Appointment(s):08/13/2019 9:45 am - Gordy Trejo OD at [id number] - Gordy Trejo, ODH02.841 Edema of right upper eyelid Functional Status Description No Information Available Mental Status Description No Information Available Referrals Description No Information Available
--- OUTSIDE RECORDS SUMMARY | 2019-09-16 07:13 | XMS REPORT | Continuity of Care Document ---
:1995 External Reference #:[id number] Author Name Gordy Trejo, OD Address [facility] [address] [place] [address] Problems Description No Information Available Social History Type Date Description Comments Sex Unknown ETOH Use Occasionally consumes alcohol Tobacco Use Start: Unknown Patient has never smoked Smoking Status Reviewed: 08/13/19 Patient has never smoked Allergies, Adverse Reactions, [...] upper eyelid Assessments Date Code Description Provider 08/13/2019 H02.841 Edema of right upper eyelid Gordy Trejo, OD 08/11/2019 H02.841 Edema of right upper eyelid Gordy Trejo, OD 08/10/2019 H02.841 Edema of right upper eyelid Gordy Trejo, OD 08/09/2019 H02.841 Edema of right upper eyelid Gordy Trejo, OD 08/08/2019 H02.841 Edema of right upper eyelid Gordy Trejo, OD Plan of Treatment 08/13/2019 - Gordy Trejo, ODH02.841 Edema of right upper eyelidFollow up:3-4 days f/u, sooner PRN Functional Status Description No Information Available Mental Status Description No Information Available Referrals Description No Information Available
--- OUTSIDE RECORDS SUMMARY | 2019-09-16 07:13 | XMS REPORT | Continuity of Care Document ---
:1995 External Reference #:[id number] Author Name Gordy Trejo, OD Address [address] [place] [address] [address] [place] [address] Problems Description No Information Available Social History Type Date Description Comments Sex Unknown ETOH Use Occasionally consumes alcohol Tobacco Use Start: Unknown Patient has never smoked Smoking Status Reviewed: 08/09/19 Patient has never smoked Allergies, Adverse Reactions, Alerts Active Allergies Reaction Severity Comments Date Amoxicillin 08/08/2019 Cefadroxil 08/08/2019 Clindamycin 08/08/2019 Medications Active Medications SIG Qnty Indications Ordering Date Provider Doxycycline One Tab bid X 1 60tabs Huy Hannon, 08/09/2019 Monohydrate Week M.D. 100mg Tablets Tobramycin-Dexamethas 1 drop qid OD x 1 5ml Gordy Trejo, 08/08/2019 one week OD 0.3-0.1% Suspension Erythromycin apply 1/4 inch Unknown 5mg/GM strip to right eye Ointment three times daily Valacyclovir HCL prn Unknown 500mg Tablets Albuterol Sulfate one treatment Unknown every 4 as needed 0.63mg/3ML Nebulizer Immunizations Description No Information Available Vital Signs Description No Information Available Results Description No Information Available Procedures Description No Information Available Medical Devices Description No Information Available Encounters Type Date Location Provider Dx Diagnosis Office Visit 08/08/2019 Main Office Gordy Trejo, AGNES H02.841 Edema of right 9:00a upper eyelid Assessments Date Code Description Provider 08/09/2019 H02.841 Edema of right upper eyelid Gordy Trejo, AGNES 08/08/2019 H02.841 Edema of right upper eyelid Gordy Trejo OD Plan of Treatment Future Appointment(s):08/10/2019 10:15 am - Gordy Trejo OD at Main [id number] - Gordy Trejo, ODH02.841 Edema of right upper eyelidFollow up:1 DAY F/ U, SOONER PRN Functional Status Description No Information Available Mental Status Description No Information Available Referrals Description No Information Available
--- OUTSIDE RECORDS SUMMARY | 2019-09-16 07:13 | XMS REPORT | Continuity of Care Document ---
:1995 External Reference #:[id number] Author Name Gordy Trejo, AGNES Address [facility] [address] [address] [place] [address] Problems Description No Information Available Social History Type Date Description Comments Sex Unknown ETOH Use Occasionally consumes alcohol Tobacco Use Start: Unknown Patient has never smoked Smoking Status Reviewed: 08/08/19 Patient has never smoked Allergies, Adverse Reactions, Alerts Active Allergies Reaction Severity Comments Date Amoxicillin 08/08/2019 Cefadroxil 08/08/2019 Clindamycin 08/08/2019 Medications Active Medications SIG Qnty Indications Ordering Provider Date Tobramycin-Dexamethaso 1 drop qid OD x 1 5ml Gordy Trejo OD 08/08/2019 ne week 0.3-0.1% Suspension Erythromycin apply 1/4 inch Unknown [...] Diagnosis Office Visit 08/08/2019 Main Office Gordy Trejo OD H02.841 Edema of right 9:00a upper eyelid Assessments Date Code Description Provider 08/08/2019 H02.841 Edema of right upper eyelid Gordy Trejo OD Plan of Treatment Future Appointment(s):08/09/2019 11:15 am - Gordy Trejo OD at Main [email or web address] - Gordy Trejo ODH02.841 Edema of right upper eyelid Functional Status Description No Information Available Mental Status Description No Information Available Referrals Description No Information Available
--- OUTSIDE RECORDS SUMMARY | 2019-09-16 07:13 | XMS REPORT | Continuity of Care Document ---
:1995 External Reference #:[id number] Author Name Gordy Trejo, OD Address [facility] [address] [address] [place] [address] Problems Description No Information Available Social History Type Date Description Comments Sex Unknown ETOH Use Occasionally consumes alcohol Tobacco Use Start: Unknown Patient has never smoked Smoking Status Reviewed: 08/10/19 Patient has never smoked Allergies, Adverse Reactions, Alerts Active Allergies Reaction Severity Comments Date Amoxicillin 08/08/2019 Cefadroxil 08/08/2019 Clindamycin 08/08/2019 Medications Active Medications SIG Qnty Indications Ordering Date Provider Moxifloxacin HCL 1 drop tid OD x 1 3ml Gordy Trejo, 08/10/2019 0.5% week OD Solution Doxycycline One Tab bid [...] upper eyelid Assessments Date Code Description Provider 08/10/2019 H02.841 Edema of right upper eyelid Gordy Trejo OD 08/09/2019 H02.841 Edema of right upper eyelid Gordy Trejo, AGNES 08/08/2019 H02.841 Edema of right upper eyelid Gordy Trejo OD Plan of Treatment Future Appointment(s):08/11/2019 10:45 am - Gordy Trejo, OD at Main [id number] - Gordy Trejo, ODH02.841 Edema of right upper eyelidFollow up:1 day f/ u Functional Status Description No Information Available Mental Status Description No Information Available Referrals Description No Information Available
--- OUTSIDE RECORDS SUMMARY | 2019-09-16 07:13 | XMS REPORT | Continuity of Care Document ---
:1995 External Reference #:[id number] Author Name Gordy Trejo, OD Address [facility] [address] [place] [address] Problems Description No Information Available Social History Type Date Description Comments Sex Unknown ETOH Use Occasionally consumes alcohol Tobacco Use Start: Unknown Patient has never smoked Smoking Status Reviewed: 08/17/19 Patient has never smoked Allergies, Adverse Reactions, Alerts Active Allergies Reaction Severity Comments Date Amoxicillin 08/08/2019 Cefadroxil 08/08/2019 Clindamycin 08/08/2019 Medications Active Medications SIG Qnty Indications Ordering Date Provider Prednisolone Acetate 1 drop bid OD x 2 5ml Gordy Trejo, 08/17/2019 1% weeks, then taper OD Suspension as directed Doxycycline One Tab bid X 1 60tabs [...] 08/10/2019 - 0.5% 1 week 08/10/2019 Solution Levofloxacin one drop tid OD 5ml Gordy Trejo, OD 08/10/2019 - 0.5% Solution x 1 week 08/17/2019 Immunizations Description No Information Available Vital Signs Date Vital Result Comment 08/13/2019 11:16am Intraocular Pressure Right Eye 14 mmHg 08/11/2019 12:03pm Intraocular Pressure Right Eye 15 mmHg Results Description No Information Available Procedures Description No Information Available Medical Devices Description No Information Available Encounters Type Date Location Provider Dx Diagnosis Office Visit 08/13/2019 Main Office Gordy Trejo, OD H02.841 Edema of right 9:45a upper eyelid Office Visit 08/11/2019 Main Office Gordy Villarrealon, OD H02.841 Edema of right 10:45a upper eyelid Office Visit 08/10/2019 Main Office Gordy Trejo, OD H02.841 Edema of right 10:15a upper eyelid Office Visit 08/09/2019 Main Office Gordy Trejo, OD H02.841 Edema of right 11:15a upper eyelid Office Visit 08/08/2019 Main Office Gordy Trejo, OD H02.841 Edema of right 9:00a upper eyelid Assessments Date Code Description Provider 08/17/2019 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, right eye Gordy Trejo, OD 08/17/2019 H02.841 Edema of right upper eyelid Gordy Trejo, OD 08/13/2019 H02.841 Edema of right upper eyelid Gordy Trejo, OD 08/11/2019 H02.841 Edema of right upper eyelid Gordy Villarrealon, OD 08/10/2019 H02.841 Edema of right upper eyelid Gordy Trejo, OD 08/09/2019 H02.841 Edema of right upper eyelid Gordy Trejo, OD 08/08/2019 H02.841 Edema of right upper eyelid Gordy Trejo, OD Plan of Treatment 08/17/2019 - Gordy Trejo, OD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, right eyeH02.841 Edema of right upper eyelidFollow up:4-5 days f/u, sooner PRN Functional Status Description No Information Available Mental Status Description No Information Available Referrals Description No Information Available
[2019-09-16 07:18] VITALS: BP 139/73
--- NOTE | 2019-09-16 07:28 | UC ---
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 She has used a friend's albuterol with relief, and reports a hx of asthma which is activated by infections. She is coughing to the point of vomiting, and feels short of breath. Now has a sore throat and feels unwell. No fever. - History of Current Complaint Chief Complaint: UCRespiratory Stated Complaint: COUGH,CONGESTION Time Seen by Provider: 09/16/19 07:17 Hx Obtained From: Patient Hx Last Menstrual Period: 09/04/19 Onset/Duration: Gradual Onset, Lasting Days - 7-8 Timing: Intermittent Episodes Severity Initially: Mild Severity Currently: Moderate Pain Intensity: 4 Character: Cough: Productive, Sputum Description: - thick and green Aggravating Factors: Exertion, Deep Breaths Alleviating Factors: Bronchodilator Associated Signs And Symptoms: Positive: Dyspnea, Wheezing, Nasal Congestion - Risk Factors Pulmonary Embolism Risk Factors: Negative Cardiac Risk Factors: Negative Pseudomonas Risk Factors: Negative Tuberculosis Risk Factors: Negative - Allergies/Home Medications Allergies/Adverse Reactions: Allergies Allergy/AdvReac Type Severity Reaction Status Date / Time amoxicillin Allergy Rash And Verified 09/16/19 07:18 Itching cefadroxil Allergy Hives Verified 09/16/19 07:18 clindamycin Allergy Nausea And Verified 09/16/19 07:18 Vomiting Home Medications: Home Medications Acetaminophen TAB* [Tylenol TAB*] 650 mg PO Q4H PRN 09/16/19 [History Confirmed 09/16/19] Benzonatate CAP* [Tessalon 100 MG CAP*] 100 mg PO TID PRN 09/16/19 [History Confirmed 09/16/19] PMH/Surg Hx/FS Hx/Imm Hx Previously Healthy: Yes - obese Respiratory History: Asthma Other History Of: Negative For: Anticoagulant Therapy - Surgical History Surgical History: Yes Surgery Procedure, Year, and Place: wisdom teeth extraction 2012 - Family History Known Family History: Positive: Hypertension, Diabetes, Respiratory Disease - asthma, Other - LUNG CANCER AND ALCOHOLISM - Social History Occupation: Employed Full-time Lives: With Family Alcohol Use: Rare Substance Use Type: Marijuana Substance Use Comment - Amount & Last Used: rare Smoking Status (MU): Former Smoker Type: Cigarettes Amount Used/How Often: up to 2 cigs weekly Have You Smoked in the Last Year: No When Did the Patient Quit Smoking/Using Tobacco: 2013 Household Exposure Type: Cigarettes - Immunization History Most Recent Influenza Vaccination: Not utd Most Recent Tetanus Shot: UKN Most Recent Pneumonia Vaccination: NONE Review of Systems All Other Systems Reviewed And Are Negative: Yes Constitutional: Positive: Fatigue Skin: Positive: Negative Eyes: Positive: Negative ENT: Positive: Sore Throat, Ear Ache Respiratory: Positive: Shortness Of Breath, Cough Cardiovascular: Positive: Negative Gastrointestinal: Positive: Negative Genitourinary: Positive: Negative Motor: Positive: Negative Neurovascular: Positive: Negative Musculoskeletal: Positive: Negative Neurological: Positive: Negative Psychological: Positive: Negative Is Patient Immunocompromised?: No Physical Exam Triage Information Reviewed: Yes Appearance: Ill-Appearing, Obese Vital Signs: Initial Vital Signs Temp 97.8 F 09/16/19 07:12 Pulse 60 09/16/19 07:12 Resp 16 09/16/19 07:12 BP 139/73 09/16/19 07:12 Pulse Ox 100 09/16/19 07:12 Eyes: Positive: Conjunctiva Clear ENT: Positive: Pharyngeal erythema, TM dull - bilaterally, Tonsillar swelling. Negative: Tonsillar exudate Neck: Positive: Supple, Nontender, No Lymphadenopathy Respiratory: Positive: Decreased breath sounds, Wheezing - with prolonged expiration Cardiovascular: Positive: RRR, No Murmur Musculoskeletal Exam: Normal Neurological Exam: Normal Psychological Exam: Normal Skin Exam: Normal Respiratory Course/Dx - Course Course Of Treatment: Progressive symtoms of cough and wheeze for over one week; will treat with antibiotic and albuterol. - Differential Dx/Diagnosis Differential Diagnosis/HQI/PQRI: Asthma, Bronchitis, Laryngitis, Lower Resp Infection Provider Diagnosis: Bronchitis Discharge ED - Sign-Out/Discharge Documenting (check all that apply): Patient Departure All imaging exams completed and their final reports reviewed: No Studies - Discharge Plan Condition: Stable Disposition: HOME Prescriptions: Albuterol HFA INHALER* [Ventolin HFA Inhaler*] 2 puff INH Q6H PRN #1 mdi PRN Reason: Wheezing Azithromyxin ADRY (NF) [Z-Adry (Zithromax) 250 mg tabs #6] 2 tab PO .TODAY, THEN 1 DAILY #6 tab Benzonatate 200 mg PO TID PRN #30 capsule PRN Reason: Cough Patient Education Materials: Acute Bronchitis (ED) Referrals: No Primary Care Phys,NOPCP [Primary Care Provider] - Additional Instructions: Begin course of azithromycin for treatment of bronchitis. Use albuterol as needed for wheezing. The aerochaber improves the delivery of the inhalant. Use tessalong perles as needed for cough suppression. Follow up if you develop increasing shortness of breath or fever. - Billing Disposition and Condition Condition: STABLE Disposition: Home
== END 2019-09-16 07:55 | disposition home or self-care (01) ==
LOC: UCEAST 07:05
DX: J45.909 Unspecified asthma, uncomplicated (principal); Z87.891 Personal history of nicotine dependence; Z88.1 Allergy status to other antibiotic agents; Z88.0 Allergy status to penicillin
CPT/HCPCS: 99212; G0463

== ENCOUNTER 2019-11-19 17:25 | Emergency (ER) | payer OTHER ==
--- OUTSIDE RECORDS SUMMARY | 2019-11-19 17:36 | XMS REPORT | Continuity of Care Document ---
:1995 External Reference #:[id number] Author Name Gordy Trejo, OD Address [facility] [address] [place] [address] Problems Description No Information Available Social History Type Date Description Comments Sex Unknown ETOH Use Occasionally consumes alcohol Tobacco Use Start: Unknown Patient has never smoked Smoking Status Reviewed: 10/23/19 Patient has never smoked Allergies, Adverse Reactions, Alerts Active Allergies Reaction Severity Comments Date Amoxicillin 08/08/2019 Cefadroxil 08/08/2019 Clindamycin 08/08/2019 Medications Active Medications SIG Qnty Indications Ordering Date Provider Neomycin/Polymyxin/De apply 09/29 inch 3.500gm Gordy Trejo, 10/23/2019 xamethasone ribbon to left OD upper lid and lid [id number] margin three Ointment times a day x 1 week Prednisolone Acetate 1 drop three 10ml Gordy Trejo, 10/22/2019 1% times a day both OD Suspension eyes x 1 week, then twice a day both eyes x 1 week Valacyclovir HCL one tab bid x 1 21tabs Huy Hannon, 10/22/2019 1gm week, then qd x 1 M.D. Tablets week Albuterol Sulfate one treatment Unknown every 4 as needed 0.63mg/3ML Nebulizer History Medications Neomycin/Polymyxin/Dexamethasone apply 09/29 3.500gm Gordy 10/23/2019 - 3.5-23121-5.1 Ointment inch ribbon AGNES Trejo 10/23/2019 to left upper lid and lid margin three times a day x 1 week Prednisolone Acetate 1 drop bid OD 5ml Gordy 08/17/2019 - 1% Suspension x 2 weeks, AGNES Trejo 10/22/2019 then taper as directed Moxifloxacin HCL 1 drop tid OD 3ml Gordy 08/10/2019 - 0.5% Solution x 1 week Neil OD 08/10/2019 Levofloxacin 0.5% one drop tid 5ml Gordy 08/10/2019 - Solution OD x 1 week Trejo, OD 08/17/2019 Doxycycline Monohydrate One Tab bid X 60tabs Huy 08/09/2019 - 100mg Tablets 1 Week Parvez 08/28/2019 Ulises Tobramycin-Dexamethasone 1 drop qid OD 5ml Gordy 08/08/2019 - 0.3-0.1% Suspension x 1 week Trejo, OD 08/28/2019 Immunizations Description No Information Available Vital Signs Date Vital Result Comment 08/17/2019 9:27am Intraocular Pressure Right Eye 18 mmHg Intraocular Pressure Left Eye 16 mmHg Cornea Thickness Left Eye 621 m Cornea Thickness Right Eye 595 m Pachymetry adjusted IOP Right Eye -5 Pachymetry adjusted IOP Left Eye -4 08/13/2019 11:16am Intraocular Pressure Right Eye 14 mmHg Results Description No Information Available Procedures Date Code Description Status 08/17/2019 67099 Corneal Pachymetry, Unilateral/Bilateral Completed Medical Devices Description No Information Available Encounters Type Date Location Provider Dx Diagnosis Office Visit 10/23/2019 Main Office Gordy Trejo, OD H16.293 Other 11:15a keratoconjunctiviti s, bilateral 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 Office Visit 10/22/2019 Main Office Gordy H16.293 Other 11:15a Neil, OD keratoconjunctivitis, bilateral Office Visit 08/17/2019 Main Office Gordy 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 , 9:00a Neil, OD right eye H02.841 Edema of right upper eyelid Office Visit 08/13/2019 9:45a Main Office Gordy Trejo, OD H02.841 Edema of right upper eyelid Office Visit 08/11/2019 10:45a Main Office Gordy Trejo, OD H02.841 Edema of right upper eyelid Office Visit 08/10/2019 10:15a Main Office Gordy Trejo, OD H02.841 Edema of right upper eyelid Office Visit 08/09/2019 11:15a Main Office Gordy Trejo, OD H02.841 Edema of right upper eyelid Office Visit 08/08/2019 9:00a Main Office Gordy Trejo, OD H02.841 Edema of right upper eyelid Assessments Date Code Description Provider 10/23/2019 H16.293 Other keratoconjunctivitis, bilateral Gordy Villarrealon, OD 10/23/2019 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 Gordy Trejo, OD 10/22/2019 H16.293 Other keratoconjunctivitis, bilateral Gordy Trejo, OD 08/17/2019 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, right eye [...] of right upper eyelid Gordy Villarrealon, OD Plan of Treatment Future Appointment(s):10/24/2019 9:15 am - Gordy Trejo, OD at Main [email or web address] 10:15 am - Gordy Trejo, OD at Main [id number]/23/2019 - Gordy Trejo, ODH16.293 Other keratoconjunctivitis, cgdxkktqqL09.024 Squamous blepharitis left upper eyelid Functional Status Description No Information Available Mental Status Description No Information Available Referrals Description No Information Available
--- OUTSIDE RECORDS SUMMARY | 2019-11-19 17:36 | XMS REPORT | Continuity of Care Document ---
:1995 External Reference #:[id number] Author Name Gordy Trejo, OD Address [facility] [address] [place] [address] Problems Description No Information Available Social History Type Date Description Comments Sex Unknown ETOH Use Occasionally consumes alcohol Tobacco Use Start: Unknown Patient has never smoked Smoking Status Reviewed: 10/22/19 Patient has never smoked Allergies, Adverse Reactions, Alerts Active Allergies Reaction Severity Comments Date Amoxicillin 08/08/2019 Cefadroxil 08/08/2019 Clindamycin 08/08/2019 Medications Active Medications SIG Qnty Indications Ordering Date Provider Prednisolone Acetate 1 drop three times 10ml Gordy Trejo, 10/22/2019 1% a day both eyes x OD Suspension 1 week, then twice a day both eyes x 1 week Valacyclovir HCL one tab bid x 1 21tabs Huy Hannon, 10/22/2019 1gm week, then qd x 1 M.D. Tablets week Albuterol Sulfate one treatment Unknown every 4 as needed 0.63mg/3ML Nebulizer History Medications Prednisolone Acetate 1 drop bid OD x 2 5ml Gordy Trejo, OD 08/17/2019 - 1% weeks, then taper 10/22/2019 Suspension as directed Moxifloxacin HCL 1 drop tid OD x 1 3ml Gordy Trejo, OD 08/10/2019 - 0.5% week 08/10/2019 Solution Levofloxacin one drop tid OD x 5ml Gordy Trejo, OD 08/10/2019 - 0.5% 1 week 08/17/2019 Solution Doxycycline One Tab bid X 1 60tabs Huy Hannon, 08/09/2019 - Monohydrate Week M.D. 08/28/2019 100mg Tablets Tobramycin-Dexamethaso 1 drop qid OD x 1 5ml Gordy Trejo, AGNES 2018 - ne week 08/28/2019 0.3-0.1% Suspension Immunizations Description No Information Available Vital Signs [...] Available Procedures Date Code Description Status 08/17/2019 98714 Corneal Pachymetry, Unilateral/Bilateral Completed Medical Devices Description No Information Available Encounters Type Date Location Provider Dx Diagnosis Office Visit 08/17/2019 Main Office Gordy Trejo, OD H18.231 Secondary corneal 9:00a edema, right eye H02.841 Edema of right upper [...] upper eyelid Assessments Date Code Description Provider 10/22/2019 H16.293 Other keratoconjunctivitis, bilateral Gordy Trejo, OD 08/17/2019 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, right eye Gordy Trejo, OD 08/17/2019 H02.841 Edema of right upper eyelid Gordy Trjeo, OD 08/13/2019 H02.841 Edema of right upper eyelid Gordy Trejo, OD 08/11/2019 H02.841 Edema of right upper eyelid Gordy Trejo, OD 08/10/2019 H02.841 Edema of right upper eyelid Gordy Trejo, OD 08/09/2019 H02.841 Edema of right upper eyelid Gordy Trejo, OD 08/08/2019 H02.841 Edema of right upper eyelid Gordy Trejo, OD Plan of Treatment Future Appointment(s):10/25/2019 10:15 am - Gordy Trejo OD at Main [id number] - Gordy Trejo, ODH16.293 Other keratoconjunctivitis, bilateralFollow up:3-4 days f/u, sooner PRN Functional Status Description No Information Available Mental Status Description No Information Available Referrals Description No Information Available
--- OUTSIDE RECORDS SUMMARY | 2019-11-19 17:36 | XMS REPORT | Continuity of Care Document ---
:1995 External Reference #:[id number] Author Name Gordy Trejo, AGNES (transmitted by agent of provider Ally Rangel) Address [address] [address] [place] [address] Problems Description No Information Available Social History Type Date Description Comments Sex Unknown ETOH Use Occasionally consumes alcohol Tobacco Use Start: Unknown Patient has never smoked Smoking Status Reviewed: 11/06/19 Patient has never smoked Allergies, Adverse Reactions, Alerts Active Allergies Reaction Severity Comments Date Amoxicillin 08/08/2019 Cefadroxil 08/08/2019 Clindamycin 08/08/2019 Medications Active Medications SIG Qnty Indications Ordering Date Provider Olopatadine HCL 1 drop both eyes 2.500ml Gordy Trejo, 11/06/2019 0.2% every day OD Solution Neomycin/Polymyxin/De apply 09/29 inch 3.500gm Gordy Trejo, 10/25/2019 xamethasone ribbon to left OD outer eyelid x 1 3.5-09630-9.1 week Ointment Prednisolone Acetate 1 drop three 10ml Gordy [...] Nebulizer History Medications Neomycin/Polymyxin/Dexamethasone apply 09/29 3.500gm Grody 10/23/2019 - 3.5-85238-3.1 Ointment inch ribbon Trejo, OD 10/23/2019 to left upper lid and lid margin three times a day x 1 week Neomycin/Polymyxin/Dexamethasone apply 09/29 3.500gm Gordy 10/23/2019 - 3.5-24066-8.1 Ointment inch ribbon Neil, OD 10/25/2019 to left upper lid and lid margin three times a day x 1 week Prednisolone Acetate 1 drop bid OD 5ml Gordy 08/17/2019 - 1% Suspension x 2 weeks, Trejo, OD 10/22/2019 then taper as directed Moxifloxacin HCL 1 drop tid OD 3ml Gordy 08/10/2019 - 0.5% Solution x 1 week Trejo, OD 08/10/2019 Levofloxacin 0.5% one drop tid [...] Available Vital Signs Date Vital Result Comment 10/30/2019 2:23pm Intraocular Pressure Right Eye 25 mmHg Intraocular Pressure Left Eye 28 mmHg 10/25/2019 10:23am Intraocular Pressure Right Eye 22 mmHg Intraocular Pressure Left Eye 22 mmHg Results Description No Information Available Procedures Date Code Description Status 08/17/2019 53319 Corneal Pachymetry, Unilateral/Bilateral Completed Medical Devices Description No Information Available Encounters Type Date Location Provider Dx Diagnosis Office Visit 10/30/2019 Main Office Gordy Trejo, OD H00.14 Chalazion left upper 2:15p eyelid H16.293 Other keratoconjunctivitis, bilateral Office Visit 10/25/2019 Main Office Gordy H16.293 Other 10:15a Neil, OD keratoconjunctivitis, bilateral 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 Office Visit 10/24/2019 Main Office Gordy H16.293 Other 9:15a Neil, OD keratoconjunctivitis, bilateral 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 Office Visit 10/23/2019 Main Office Gordy H16.293 Other 11:15a Neil, OD keratoconjunctivitis, bilateral 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 [...] upper eyelid Assessments Date Code Description Provider 11/06/2019 H00.14 Chalazion left upper eyelid Gordy Trejo, OD 11/06/2019 H16.293 Other keratoconjunctivitis, bilateral Gordy Trejo, OD 10/30/2019 H00.14 Chalazion left upper eyelid Gordy Trejo, OD 10/30/2019 H16.293 Other keratoconjunctivitis, bilateral Gordy Trejo, OD 10/25/2019 H16.293 Other keratoconjunctivitis, bilateral Gordy Trejo, OD 10/25/2019 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 Gordy Trejo, OD 10/24/2019 H16.293 Other keratoconjunctivitis, bilateral Gordy Trejo, OD 10/24/2019 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
--- OUTSIDE RECORDS SUMMARY | 2019-11-19 17:36 | XMS REPORT | Continuity of Care Document ---
:1995 External Reference #:[id number] Author Name Gordy Trejo, OD Address [facility] [address] [place] [address] Problems Description No Information Available Social History Type Date Description Comments Sex Unknown ETOH Use Occasionally consumes alcohol Tobacco Use Start: Unknown Patient has never smoked Smoking Status Reviewed: 10/25/19 Patient has never smoked Allergies, Adverse Reactions, Alerts Active Allergies Reaction Severity Comments Date Amoxicillin 08/08/2019 Cefadroxil 08/08/2019 Clindamycin 08/08/2019 Medications Active Medications SIG Qnty Indications Ordering Date Provider Neomycin/Polymyxin/De apply 09/29 inch 3.500gm Gordy Trejo, 10/23/2019 xamethasone ribbon to left OD upper lid and lid 3.5-40359-2.1 margin three Ointment times a day x [...] Neomycin/Polymyxin/Dexamethasone apply 09/29 3.500gm Gordy 10/23/2019 - 3.5-85172-6.1 Ointment inch ribbon AGNES Trejo 10/23/2019 to [...] Available Vital Signs Date Vital Result Comment 10/25/2019 10:23am Intraocular Pressure Right Eye 22 mmHg Intraocular Pressure Left Eye 22 mmHg 08/17/2019 9:27am Intraocular Pressure Right Eye 18 mmHg Intraocular Pressure Left Eye 16 mmHg Cornea Thickness Left Eye 621 m Cornea Thickness Right Eye 595 m Pachymetry adjusted IOP Right Eye -5 Pachymetry adjusted IOP Left Eye -4 Results Description No Information Available Procedures Date Code Description Status 08/17/2019 28775 Corneal Pachymetry, Unilateral/Bilateral Completed Medical Devices Description No Information Available Encounters Type Date Location Provider Dx Diagnosis Office Visit 10/25/2019 Main Office Gordy Trejo, OD H16.293 Other 10:15a keratoconjunctiviti s, bilateral 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 left [...] Gordy 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
--- NOTE | 2019-11-19 18:24 | ED ---
Lower Extremity - HPI Summary HPI Summary: The patient is a 24-year-old female [place] [facility] [place] with a chief complaint of bilateral lower extremity numbness and tingling onset this morning upon waking up. She reports that she woke up with numbness in upper legs and tingling in the lower legs but not including the feet. She then began to have increased pain in the lower back, which she has chronic pain, but it is worse now. The sharp pain is bilateral but worse on the right especially with movement. She then developed left flank pain, which she has never experienced before. She denies any bowel or bladder incontinence. Symptoms rated 10/10 in severity. She has not taken any medications prior to arrival for treatment. She notes that she is about 10 weeks . She has not been established with an PARALEGAL SECRETARY yet, but [facility] went to [facility] for confirmation of the . Past medical history is significant for asthma, anxiety, depression. Former smoker, rare alcohol use, marijuana use. Medications reviewed. Allergies noted. Home Medications Medication Instructions Recorded Confirmed Type ValACYclovir (*) [Valtrex 1 GM(*)] 1 gm PO BID PRN 06/15/19 09/16/19 History Acetaminophen TAB* [Tylenol TAB*] 650 mg PO Q4H PRN 09/16/19 09/16/19 History Albuterol HFA INHALER* [Ventolin 2 puff INH Q6H PRN #1 mdi 09/16/19 Rx HFA Inhaler*] Azithromyxin DOMENICO (NF) [Z-Domenico 2 tab PO .TODAY, THEN 1 DAILY #6 09/16/19 Rx (Zithromax) 250 mg tabs #6] tab Benzonatate 200 mg PO TID PRN #30 capsule 09/16/19 Rx Benzonatate CAP* [Tessalon 100 MG 100 mg PO TID PRN 09/16/19 09/16/19 History CAP*] HYDROcodone/ACETAMIN 5-325 MG* 1 tab PO Q6H PRN #20 tab MDD 4 11/19/19 Rx [[place] 5-325 TAB*] = - History of Current Complaint Chief Complaint: EDGeneral Stated Complaint: NUMBNESS IN BOTH LEGS/10 WKS PREG PER PT Time Seen by Provider: 11/19/19 18:01 Hx Obtained From: Patient Hx Last Menstrual Period: 09/04/19 Mechanism Of Injury: Unknown - woke up with numbness Onset/Duration: Still Present - since this morning with waking up Severity Initially: Mild Severity Currently: Severe Pain Intensity: 10 Pain Scale Used: 0-10 Numeric Timing: Constant Location: Other - numbness in upper legs, tingling in lower legs Character Of Pain: Sharp - back pain Associated Signs And Symptoms: Positive: Other - left flank pain; Negative: bowel or bladder incontinence Aggravating Factor(s): Movement Alleviating Factor(s): Rest - Allergies/Home Medications Allergies/Adverse Reactions: Allergies Allergy/AdvReac Type Severity Reaction Status Date / Time amoxicillin Allergy Rash And Verified 11/19/19 17:31 Itching cefadroxil Allergy Hives Verified 11/19/19 17:31 clindamycin Allergy Nausea And Verified 11/19/19 17:31 Vomiting Home Medications: Home Medications ValACYclovir (*) [Valtrex 1 GM(*)] 1 gm PO BID PRN 06/15/19 [History Confirmed 11/19/19] Acetaminophen TAB* [Tylenol TAB*] 650 mg PO Q4H PRN 09/16/19 [History Confirmed 11/19/19] HYDROcodone/ACETAMIN 5-325 MG* [[place] 5-325 TAB*] 1 tab PO Q6H PRN #20 tab MDD 4 11/19/19 [Rx] Ondansetron ODT TAB* [Zofran Odt TAB*] 4 mg PO Q6H PRN #20 tab.odt 11/19/19 [Rx] Pnv No.95/Ferrous Fum/Folic AC [ and Iron] 1 tab PO DAILY 11/19/19 [ History Confirmed 11/19/19] Prochlorperazine 5 mg TAB [Compazine 5 mg TAB] 5 mg PO Q6H PRN #20 tab 11/19/19 [Rx] PMH/Surg Hx/FS Hx/Imm Hx Endocrine/Hematology History: Reports: Other Endocrine/Hematological Disorders - morbid obesity Denies: Hx Anticoagulant Therapy, Hx Blood Disorders, Hx Blood Transfusions, Hx Bone Marrow Disease, Hx Diabetes, Hx Thyroid Disease, Hx Anemia, Hx Unexplained Bleeding Cardiovascular History: Denies: Hx Hypertension Respiratory History: Reports: Hx Asthma Denies: Hx Chronic Obstructive Pulmonary Disease (COPD) GI History: Denies: Hx Gastrointestinal Bleed, Hx Hiatal Hernia, Hx Ulcer History: Reports: Other Problems/Disorders - tubo-ovarian abscess 02/2018 Denies: Hx Acute Renal Failure, Hx Benign Prostatic Hyperplasia, Hx Chronic Renal Failure Sensory History: Denies: Hx Cataracts, Hx Contacts or Glasses, Hx Eye Injury, Hx Eye Prosthesis, Hx Glaucoma, Hx Legally Blind, Hx Macular Degeneration, Hx Hearing Aid Opthamlomology History: Denies: Hx Cataracts, Hx Contacts or Glasses, Hx Eye Injury, Hx Eye Prosthesis, Hx Glaucoma, Hx Legally Blind, Hx Macular Degeneration Neurological History: Denies: Hx Headaches, Hx Migraine, Hx Nerve Disease, Hx Seizures, Hx Spinal Cord Injury, Other Neuro Impairments/Disorders Psychiatric History: Reports: Hx Anxiety, Hx Eating Disorder - binging & purging age [age], Hx Depression Denies: Hx Suicide Attempt, Hx of Violent Episodes Against Others - Cancer History Hx Chemotherapy: No Hx Radiation Therapy: No Hx Palliative Cancer Treatment: No - Surgical History Surgery Procedure, Year, and Place: wisdom teeth extraction 2012 Hx Anesthesia Reactions: No Infectious Disease History: No Infectious Disease History: Reports: Hx Clostridium Difficile Denies: Hx Hepatitis, Hx Human Immunodeficiency Virus (HIV), Hx of Known/ Suspected MRSA, Hx Shingles, Hx Tuberculosis, Hx Known/Suspected VRE, Hx Known/ Suspected VRSA, History Other Infectious Disease, Traveled Outside the [place] in Last 30 Days - Family History Known Family History: Positive: Hypertension, Diabetes, Respiratory Disease - asthma, Other - LUNG CANCER AND ALCOHOLISM - Social History Alcohol Use: Rare Hx Substance Use: Yes Substance Use Type: Reports: Marijuana Substance Use Comment - Amount & Last Used: rare Hx Tobacco Use: Yes Smoking Status (MU): Former Smoker Type: Cigarettes Amount Used/How Often: up to 2 cigs weekly Have You Smoked in the Last Year: No Review of Systems Negative: Other - bowel incontinence Positive: flank pain - left. Negative: incontinence Positive: Myalgia - low back Positive: Paresthesia - BLE lower legs, Numbness - BLE upper legs All Other Systems Reviewed And Are Negative: Yes Physical Exam - Summary Physical Exam Summary: Appearance: The patient is well-nourished in no acute distress and in no acute pain. Skin: The skin is warm and dry, and skin color reflects adequate perfusion. HEENT: The head is normocephalic and atraumatic. The pupils are equal and reactive. The conjunctivae are clear and without drainage. Nares are patent and without drainage. Mouth reveals moist mucous membranes, and the throat is without erythema and exudate. The external ears are intact. The ear canals are patent and without drainage. The tympanic membranes are intact. Neck: The neck is supple with full range of motion and non-tender. There are no carotid bruits. There is no neck vein distension. Respiratory: Chest is non-tender. Lungs are clear to auscultation and breath sounds are symmetrical and equal. Cardiovascular: Heart is regular rate and rhythm. There is no murmur or rub auscultated. There is no peripheral edema and pulses are symmetrical and equal. Abdomen: The abdomen is soft and non-tender. There are normal bowel sounds heard in all four quadrants and there is no organomegaly palpated. Musculoskeletal: There is tenderness in the paralumbar area. Extremities are non -tender with full range of motion. There is hyperreflexia in the knees bilaterally. Straight leg raise is negative. There is good capillary refill. There is no peripheral edema or calf tenderness elicited. Neurological: Patient is alert and oriented to person, place and time. There was 1-2 beats of non-sustained clonus bilaterally. Strength is intact in the lower extremities. The patient has symmetrical motor strength in all four extremities. Cranial nerves are grossly intact. Deep tendon reflexes are symmetrical and equal in all four extremities. Psychiatric: The patient has an appropriate affect and does not exhibit any anxiety or depression. Triage Information Reviewed: Yes Vital Signs On Initial Exam: Initial Vitals Temp Pulse Resp BP Pulse Ox 98.7 F 103 19 164/88 100 11/19/19 17:27 11/19/19 17:27 11/19/19 17:27 11/19/19 17:27 11/19/19 17:27 Vital Signs Reviewed: Yes Procedures - Sedation Patient Received Moderate/Deep Sedation with Procedure: No Diagnostics - Vital Signs Vital Signs Temp Pulse Resp BP Pulse Ox 11/19/19 17:27 98.7 F 103 19 164/88 100 - Laboratory Result Diagrams: 11/19/19 18:35 11/19/19 18:35 Lab Statement: Any lab studies that have been ordered have been reviewed, and results considered in the medical decision making process. Re-Evaluation - Re-Evaluation First Eval Re-Evaluation Time: 21:20 Change: Improved Comment: Pain has improved. We discussed all results and plan for discharge. Lower Extremity Course/Dx - Course Course Of Treatment: Ms. Merlos presented complaining of low back pain which she has had for a long time she says most of her life. It is worse today and she complains of bilateral lower leg numbness not including her feet. She states that she can move everything fine and has no change in her bowels or bladder. She is not weak and she was able to ambulate. On my exam felt that she was a little bit hyperreflexic but otherwise I found nothing neurologically. I obtained labs which were unremarkable and gave her Bon[place]re which helped. I spoke with Dr. Lim because of the perceived hyperreflexia and he felt that it was safe for symptomatic treatment and discharge and follow-up. She is early in her first trimester but out of the 25-40 day window and I'm treating her with a very short course of [place]. - Diagnoses Provider Diagnoses: Low back pain - Physician Notifications Discussed Care Of Patient With: Car Lim - neurology Time Discussed With Above Provider: 20:10 Instructed by Provider To: Other - I discussed the patient's case with Dr. Lim, and he agrees with treatment plan. Discharge ED - Sign-Out/Discharge Documenting (check all that apply): Patient Departure - Patient will be discharged home. - Discharge Plan Condition: Stable Disposition: HOME Prescriptions: HYDROcodone/ACETAMIN 5-325 MG* [[place] 5-325 TAB*] 1 tab PO Q6H PRN #20 tab MDD 4 PRN Reason: Pain Ondansetron ODT TAB* [Zofran Odt TAB*] 4 mg PO Q6H PRN #20 tab.odt PRN Reason: Nausea/Vomiting Prochlorperazine 5 mg TAB [Compazine 5 mg TAB] 5 mg PO Q6H PRN #20 tab PRN Reason: Nausea Patient Education Materials: Back Pain (ED), Lower Back Exercises (ED) Referrals: [facility] [Outside] - 3 Days Additional Instructions: Please take medication as prescribed. Follow up with your primary care provider in 2-3 days. Follow up with your PARALEGAL SECRETARY as well. Return to the emergency department for any new or worsening symptoms. - Billing Disposition and Condition Condition: STABLE Disposition: Home - Attestation Statements Document Initiated by Scribe: Yes Documenting Scribe: Amairani Ortiz Provider For Whom Hakeem is Documenting (Include Credential): Dr. Jhonatan Reyes MD Scribe Attestation: I, Amairani Ortiz scribed for Dr. Jhonatan Reyes MD on 11/19/19 at 2141. Scribe Documentation Reviewed: Yes Provider Attestation: The documentation as recorded by the Amairani lizarraga accurately reflects the service I personally performed and the decisions made by me, Dr. Jhonatan Reyes MD Status of Scribe Document: Viewed
[2019-11-19 18:45] LABS: ABS Eosinophils 0.3 10^3/ul (0-0.6); ABS Lymphocytes 2.3 10^3/ul (1.0-4.8); ABS Monocytes 0.8 10^3/ul (0-0.8); ABS Neutrophils 7.5 10^3/ul (1.5-7.7); Eosinophil % 2.4 %; Hematocrit 37 % (35-47); Hemoglobin 12.6 g/dL (12.0-16.0); Lymphocyte % 20.8 %; Mean Corpuscular HGB Conc 34 g/dL (31-36); Mean Corpuscular Hemoglobin 29 pg (27-31); Mean Corpuscular Volume 84 fL (80-97); Platelet Count 411 10^3/uL (150-450); Red Blood Count 4.36 10^6 /uL (3.70-4.87); Red Cell Distribution Width 15 % (10-15); White Blood Count 10.9 10^3/uL (3.5-10.8)
[2019-11-19 19:00] LABS: Albumin/Globulin Ratio 1.3 (1-3); BUN/Creatinine Ratio 14.7 (8-20); C Reactive Protein 11.09 mg/L (<8.01); Calcium 8.8 mg/dL (8.6-10.3); EGFR African American 128.6 (>60); EGFR Non-African American 106.3 (>60); Potassium 3.8 mmol/L (3.5-5.0); Total Bilirubin 0.2 mg/dL (0.2-1.0)
[2019-11-19] MEDS ORDERED: HYDROcodone/ACETAMIN 5-325 MG* 1 TAB PO ONE (19:59)
[2019-11-19 21:32] VITALS: BP 110/74
== END 2019-11-19 21:32 | disposition home or self-care (01) ==
LOC: ED 17:25
DX: M54.5 Low back pain (principal); R20.0 Anesthesia of skin; J45.909 Unspecified asthma, uncomplicated; E66.01 Morbid (severe) obesity due to excess calories; Z87.891 Personal history of nicotine dependence; F41.9 Anxiety disorder, unspecified; F32.9 Major depressive disorder, single episode, unspecified; Z79.899 Other long term (current) drug therapy; Z88.0 Allergy status to penicillin
CPT/HCPCS: 36415; 80053; 84702; 85025; 86140; 99283

== ENCOUNTER 2019-12-05 08:01 | Emergency (ER) | payer OTHER ==
--- OUTSIDE RECORDS SUMMARY | 2019-12-05 08:08 | XMS REPORT | Continuity of Care Document ---
:1995 External Reference #:[id number] Author Name Gordy Trejo, OD Address [facility] [address] [place] [address] Problems Description No Information Available Social History Type Date Description Comments Sex Unknown ETOH Use Occasionally consumes alcohol Tobacco Use Start: Unknown Patient has never smoked Smoking Status Reviewed: 11/20/19 Patient has never smoked Allergies, Adverse Reactions, Alerts Active Allergies Reaction Severity Comments Date Amoxicillin 08/08/2019 Cefadroxil 08/08/2019 Clindamycin 08/08/2019 Medications Active Medications SIG Qnty Indications Ordering Date Provider Valacyclovir HCL one tab bid x 1 30tabs Huy Hannon, 11/20/2019 1gm week, then qd x 2 M.D. Tablets weeks Neomycin/Polymyxin/De apply 1/4 inch 3.500gm Gordy Trejo, 11/20/2019 xamethasone ribbon to left OD outer lid lesion 3.5-93410-8.1 tid x 1 week Ointment Lotemax one drop three 5ml Gordy Trejo, 11/20/2019 0.5% Suspension times a day both OD eyes x 1 week, then twice per day x 1 week Alaway one drop twice a 5ml Gordy Trejo, 11/06/2019 0.025% Solution day both eyes as OD needed Albuterol Sulfate one treatment Unknown every 4 as needed 0.63mg/3ML Nebulizer History Medications Fluorometholone 1gtt three times 10ml Gordy Trejo, 11/20/2019 - 0.1% a day both eyes x OD 11/20/2019 Suspension 1 week, then twice per day x 1 week Olopatadine HCL 1 drop both eyes 2.500ml Gordy Trejo, 11/06/2019 - 0.2% Solution every day OD 11/06/2019 Neomycin/Polymyxin/Dexam apply 1/4 inch 3.500gm Gordy Trejo, 2019 - ethasone ribbon to left OD 11/20/2019 3.5-69761-9.1 outer eyelid x 1 Ointment week Neomycin/Polymyxin/Dexam apply 1/4 inch 3.500gm Gordy Trejo, 2019 - ethasone ribbon to left OD 10/25/2019 3.5-33009-4.1 upper lid and lid Ointment margin three times a day x 1 week Neomycin/Polymyxin/Dexam apply 1/4 inch 3.500gm Gordy Trejo, 2019 - ethasone ribbon to left OD 10/23/2019 3.5-59571-0.1 upper lid and lid Ointment margin three times a day x 1 week Prednisolone Acetate 1 drop three 10ml Gordy Trejo, 10/22/2019 - 1% times a day both OD 11/20/2019 Suspension eyes x 1 week, then twice a day both eyes x 1 week Valacyclovir HCL one tab bid x 1 21tajana Hannon, 10/22/2019 - 1gm Tablets week, then qd x 1 M.D. 11/20/2019 week Prednisolone Acetate 1 drop bid OD x 2 5ml Gordy Trejo, 08/17/2019 - 1% weeks, then taper OD 10/22/2019 Suspension as directed Moxifloxacin HCL 1 drop tid OD x 1 3ml Gordy Trejo, 08/10/2019 - 0.5% week OD 08/10/2019 Solution Levofloxacin one drop tid OD x 5ml Gordy Trejo, 08/10/2019 - 0.5% Solution 1 week OD 08/17/2019 Doxycycline Monohydrate One Tab bid X 1 60tabs Huy Hannon, 2018 - 100mg Week M.D. 08/28/2019 Tablets Tobramycin-Dexamethasone 1 drop qid OD x 1 5ml Gordy Trejo, 08/08/2019 - week OD 08/28/2019 0.3-0.1% Suspension Immunizations Description No Information Available Vital Signs Date Vital Result Comment 11/20/2019 11:46am Intraocular Pressure Right Eye 19 mmHg Intraocular Pressure Left Eye 19 mmHg 11/06/2019 12:54pm Intraocular Pressure Right Eye 24 mmHg Intraocular Pressure Left Eye 24 mmHg Results Description No Information Available Procedures Date Code Description Status 11/20/2019 50262 Eye Exam Est Intermediate Completed 08/17/2019 75671 Corneal Pachymetry, Unilateral/Bilateral Completed Medical Devices Description No Information Available Encounters Type Date Location Provider Dx Diagnosis Office Visit 11/06/2019 Main Office Gordy Trejo, OD H00.14 Chalazion left upper 11:15a eyelid H16.293 Other keratoconjunctivitis, bilateral Office Visit 10/30/2019 2:15p Main Office Gordy Trejo, OD H00.14 Chalazion left upper eyelid H16.293 Other keratoconjunctivitis, bilateral Office Visit 10/25/2019 Main Office Gordy H16.293 Other 10:15a Trejo, OD keratoconjunctivitis, bilateral 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 Office Visit 10/24/2019 Main Office Gordy H16.293 Other 9:15a Trejo, OD keratoconjunctivitis, bilateral 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 Office Visit 10/23/2019 Main Office Gordy H16.293 Other 11:15a Trejo, OD keratoconjunctivitis, bilateral 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 Office Visit 10/22/2019 Main Office Gordy H16.293 Other 11:15a Trejo, OD keratoconjunctivitis, bilateral Office Visit 08/17/2019 Main [...] upper eyelid Assessments Date Code Description Provider 11/20/2019 H16.293 Other keratoconjunctivitis, bilateral Gordy Trejo, OD 11/20/2019 H00.14 Chalazion left upper eyelid Gordy Trejo, OD 11/06/2019 H00.14 Chalazion left upper eyelid Gordy Trejo, OD 11/06/2019 H16.293 Other keratoconjunctivitis, bilateral Gordy Trejo, OD 10/30/2019 H00.14 Chalazion left upper eyelid Gordy rTejo, OD 10/30/2019 H16.293 Other keratoconjunctivitis, bilateral Gordy [...] Gordy Trejo, OD Plan of Treatment Future Appointment(s):11/27/2019 11:15 am - Gordy Trejo, OD at Main [id number] - Gordy Trejo, ODH16.293 Other keratoconjunctivitis, sdkhangglY45.14 Chalazion left upper eyelid Functional Status Description No Information Available Mental Status Description No Information Available Referrals Description No Information Available
--- OUTSIDE RECORDS SUMMARY | 2019-12-05 08:08 | XMS REPORT | Continuity of Care Document ---
:1995 External Reference #:[id number] Author Name Ultrasounds (transmitted by agent of provider Nancy Diaz) Address [address] [place] [address] Problems Active Problems Provider Date Herpes simplex [...] Severe 11/30/2016 Cefadroxil Serum Sickness Severe 11/30/2016 Latex 12/03/2019 Medications Active Medications SIG Qnty Indications Ordering Date Provider Ondansetron take 1 tablet 30tabs Priti Cobb, 12/03/2019 4mg dissolved in the CNM Tablets Dispers mouth every 8 hours as needed for nausea and vomiting Valacyclovir HCL for outbreaks take 60tabs Ester Chahal, 500mg by mouth CNM 500mg Tablets every 12 hours x 3 days. start within 72 hours of onset of symptoms.for suppression take 500mg daily History Medications Metronidazole 1 by mouth twice 14tabs Rajani Craig 06/19/2019 - 500mg Tablets a day for 7 days 12/03/2019 A[place]acen 1/35 1 by mouth every 84tabs Rajani Craig 06/19/2019 - 1-35mg-mcg day/ start the 12/03/2019 Tablets first day of menses Medications Administered in Office Medication SIG Qnty [...] Mass Index) 56.5 kg/m2 Last Menstrual Period 7154374 2 Parity 0 03/19/2019 3:57pm BP Systolic 122 mmHg BP Diastolic 80 mmHg Height 64 inches 5'4" Weight 311.00 lb BMI (Body Mass Index) 53.4 kg/m2 Last Menstrual Period [id number] 2 Parity 0 Results Description No Information Available Procedures Date Code Description Status 12/03/2019 23486 OB Ultrasound First Trimester Completed Medical Devices Description No Information Available Encounters Type Date Location Provider Dx Diagnosis Office Visit 06/19/2019 [facility] Rajani Craig A56.09 Other chlamydial 2:15p MD infection of lower genitourinary tract Assessments Date Code Description Provider 12/03/2019 O26.91 related conditions, unspecified, Rajani Craig MD first trimester 12/03/2019 O26.91 related conditions, unspecified, Ultrasounds first trimester 06/19/2019 A56.09 Other chlamydial infection of lower Rajani Craig MD genitourinary tract Plan of Treatment Future Appointment(s):12/11/2019 11:00 am - Nhan Kenney JR DO at [facility] 11:00 am - Laboratory at [facility]12/11/2019 10:45 am - Ultrasounds at [facility]06/19/2019 - Rajani Craig MDA56.09 Other chlamydial infection of lower genitourinary tract Functional Status Description No Information Available Mental Status Description No Information Available Referrals Description No Information Available
[2019-12-05 08:10] VITALS: BP 126/73
[2019-12-05] MEDS ORDERED: Albuterol 2.5 MG/3 ML NEB.SOL* (0.083%) INH ONE (08:58)
--- NOTE | 2019-12-05 09:00 | UC ---
UC General HPI - HPI Summary HPI Summary: Acute onset of flu like illness - initially started as nausea vomiting which she thought was from her , then developed low grade temp 99.9, body aches, chills, coughing, congestion and wheezing She is 11 weeks She has not been able to keep down any food or drink down due to vomiting. Has tried taking, zofran, tylenol and zofran but throws everything up. Hx of asthma Meds: reviewed - History of Current Complaint Chief Complaint: UCGeneralIllness Stated Complaint: VOMITTING, COUGH Time Seen by Provider: 12/05/19 08:51 Hx Last Menstrual Period: 09/04/19 Pain Intensity: 10 - Allergy/Home Medications Allergies/Adverse Reactions: Allergies Allergy/AdvReac Type Severity Reaction Status Date / Time amoxicillin Allergy Rash And Verified 12/05/19 08:10 Itching cefadroxil Allergy Hives Verified 12/05/19 08:10 clindamycin Allergy Nausea And Verified 12/05/19 08:10 Vomiting Home Medications: Home Medications ValACYclovir (*) [Valtrex 1 GM(*)] 1 gm PO BID PRN 06/15/19 [History Confirmed 12/05/19] Acetaminophen TAB* [Tylenol TAB*] 650 mg PO Q4H PRN 09/16/19 [History Confirmed 12/05/19] HYDROcodone/ACETAMIN 5-325 MG* [[place] 5-325 TAB*] 1 tab PO Q6H PRN #20 tab MDD 4 11/19/19 [Rx Confirmed 12/05/19] Ondansetron ODT TAB* [Zofran Odt TAB*] 4 mg PO Q6H PRN #20 tab.odt 11/19/19 [Rx Confirmed 12/05/19] Pnv No.95/Ferrous Fum/Folic AC [ and Iron] 1 tab PO DAILY 11/19/19 [ History Confirmed 11/19/19] PMH/Surg Hx/FS Hx/Imm Hx Previously Healthy: Yes Respiratory History: Asthma Other History Of: Negative For: Anticoagulant Therapy - Surgical History Surgical History: Yes Surgery Procedure, Year, and Place: wisdom teeth extraction 2012 - Family History Known Family History: Positive: Hypertension, Diabetes, Respiratory Disease - asthma, Other - LUNG CANCER AND ALCOHOLISM - Social History Alcohol Use: Rare Substance Use Type: Marijuana Substance Use Comment - Amount & Last Used: rare Smoking Status (MU): Former Smoker Type: Cigarettes Amount Used/How Often: up to 2 cigs weekly Have You Smoked in the Last Year: No When Did the Patient Quit Smoking/Using Tobacco: 2013 Household Exposure Type: Cigarettes - Immunization History Most Recent Influenza Vaccination: Not utd Most Recent Tetanus Shot: UKN Most Recent Pneumonia Vaccination: NONE Review of Systems All Other Systems Reviewed And Are Negative: Yes Constitutional: Positive: Fever ENT: Positive: Sore Throat Respiratory: Positive: Shortness Of Breath, Cough Physical Exam Triage Information Reviewed: Yes Appearance: Other: - mild respiratory distress Vital Signs: Initial Vital Signs Temp 99.9 F 12/05/19 08:06 Pulse 103 12/05/19 08:06 Resp 20 12/05/19 08:06 BP 126/73 12/05/19 08:06 Pulse Ox 97 12/05/19 08:06 Vital Signs Reviewed: Yes ENT: Positive: Pharyngeal erythema, Nasal congestion Neck: Positive: Supple Respiratory: Positive: Decreased breath sounds, Other: - coarse breath sounds, b /l expiratory wheezing, poor aeration Cardiovascular: Positive: No Murmur, Tachycardia Abdomen Description: Positive: Soft, Other: - morbidly obese Course/Dx - Course Course Of Treatment: This is a 24 yr old with PMhx of asthma who presents with N/V and flu like illness and SOB Assessment Mild-mod respiratory distress DIscussed transferring via ambulance patient declined and understands the risks Respiratory distress from asthma and viral illness and dehydration Friend is on his way to transport her [place] [facility] [place] Albuterol neb given - slight improvement, still wheezing and poor aeration Flu: positive flu a - Sign out given Jonah in ED [facility] [place] Go directly to the ER - Diagnoses Provider Diagnosis: Influenza A, Asthma Discharge ED - Sign-Out/Discharge Documenting (check all that apply): Patient Departure All imaging exams completed and their final reports reviewed: No Studies - Discharge Plan Condition: Fair Disposition: HOME-RECOMMEND TO ED Referrals: No Primary Care Phys,NOPCP [Primary Care Provider] - [facility] [Outside] Additional Instructions: REcommend going directly to the ER - Billing Disposition and Condition Condition: FAIR Disposition: Home-Recommend to ED
[2019-12-05 09:15] LABS: Influenza A Molecular POSITIVE (Negative)
== END 2019-12-05 09:45 | disposition home health service (06) ==
LOC: UCEAST 08:01
DX: O99.511 Diseases of the respiratory system complicating pregnancy, first trimester (principal); J45.909 Unspecified asthma, uncomplicated; J10.1 Influenza due to other identified influenza virus with other respiratory manifestations; Z87.891 Personal history of nicotine dependence; Z88.0 Allergy status to penicillin; Z88.1 Allergy status to other antibiotic agents; Z3A.11 11 weeks gestation of pregnancy
CPT/HCPCS: 99212; G0463

== ENCOUNTER 2019-12-05 10:00 | Emergency (ER) | payer OTHER ==
[2019-12-05] MEDS ORDERED: Albuterol 2.5 MG/3 ML NEB.SOL* (0.083%) INH ONE (10:26)
[2019-12-05] MEDS ORDERED: NS 0.9% 1000 ML** 1,000 ML IV ONE ×2 (10:26→13:41)
[2019-12-05 11:04] LABS: ABS Lymphocytes 0.6 10^3/ul (1.0-4.8); ABS Monocytes 0.7 10^3/ul (0-0.8); ABS Neutrophils 4.2 10^3/ul (1.5-7.7); Eosinophil % 0.4 %; Hematocrit 37 % (35-47); Hemoglobin 12.4 g/dL (12.0-16.0); Lymphocyte % 10.8 %; Mean Corpuscular HGB Conc 34 g/dL (31-36); Mean Corpuscular Hemoglobin 29 pg (27-31); Mean Corpuscular Volume 85 fL (80-97); Platelet Count 316 10^3/uL (150-450); Red Blood Count 4.32 10^6 /uL (3.70-4.87); Red Cell Distribution Width 15 % (10-15); White Blood Count 5.5 10^3/uL (3.5-10.8)
--- NOTE | 2019-12-05 11:14 | ED ---
Influenza-Like Illness - HPI Summary HPI Summary: Pt. is a 24 y.o female who presents to the ER for fever, cough, sob, n/v that started yesterday. Pt. was seen at [facility] and was positive for influenza. Pt. is 11 weeks . Pt. states she has not been able to keep any fluids down. She denies abd. pain, vaginal bleeding/discharge. Hx of asthma. Pt. notes she ran out of her ventolin and has been feeling wheezy. She received breathing treatment at which improved wheezing. Sxs are moderate in severity. No current modifying factors. - History of Current Complaint Chief Complaint: EDFluSymptoms Time Seen by Provider: 12/05/19 10:06 - Allergy/Home Medications Allergies/Adverse Reactions: Allergies Allergy/AdvReac Type Severity Reaction Status Date / Time amoxicillin Allergy Rash And Verified 12/05/19 08:10 Itching cefadroxil Allergy Hives Verified 12/05/19 08:10 clindamycin Allergy Nausea And Verified 12/05/19 08:10 Vomiting Home Medications: Home Medications ValACYclovir (*) [Valtrex 1 GM(*)] 1 gm PO BID PRN 06/15/19 [History Confirmed 12/05/19] Albuterol HFA INHALER* [Ventolin HFA Inhaler*] 2 puff INH Q6H PRN #1 mdi [Rx] Fluorometholone 0.1% OPTH.JOSE ALEJANDRO* [Fml 0.1% Opth.susp*] 1 drop BOTH EYES BID [History Confirmed 12/05/19] Metoclopramide TAB* [Reglan TAB*] 10 mg PO Q6H PRN #12 tab 12/05/19 [Rx] Ondansetron ODT TAB* [Zofran Odt TAB*] 4 mg PO Q8H PRN 12/05/19 [History Confirmed 12/05/19] Oseltamivir CAP* [Tamiflu CAP*] 75 mg PO BID #10 cap 12/05/19 [Rx] PMH/Surg Hx/FS Hx/Imm Hx Previously Healthy: Yes Endocrine/Hematology History: Reports: Other Endocrine/Hematological Disorders - morbid obesity Denies: Hx Anticoagulant Therapy, Hx Blood Disorders, Hx Blood Transfusions, Hx Bone Marrow Disease, Hx Diabetes, Hx Thyroid Disease, Hx Anemia, Hx Unexplained Bleeding Cardiovascular History: Denies: Hx Hypertension Respiratory History: Reports: Hx Asthma Denies: Hx Chronic Obstructive Pulmonary Disease (COPD) GI History: Denies: Hx Gastrointestinal Bleed, Hx Hiatal Hernia, Hx Ulcer History: Reports: Other Problems/Disorders - tubo-ovarian abscess 02/2018 Denies: Hx Acute Renal Failure, Hx Benign Prostatic Hyperplasia, Hx Chronic Renal Failure Sensory History: Denies: Hx Cataracts, Hx Contacts or Glasses, Hx Eye Injury, Hx Eye Prosthesis, Hx Glaucoma, Hx Legally Blind, Hx Macular Degeneration, Hx Hearing Aid Opthamlomology History: Denies: Hx Cataracts, Hx Contacts or Glasses, Hx Eye Injury, Hx Eye Prosthesis, Hx Glaucoma, Hx Legally Blind, Hx Macular Degeneration Neurological History: Denies: Hx Headaches, Hx Migraine, Hx Nerve Disease, Hx Seizures, Hx Spinal Cord Injury, Other Neuro Impairments/Disorders Psychiatric History: Reports: Hx Anxiety, Hx Eating Disorder - binging & purging age [age], Hx Depression Denies: Hx Suicide Attempt, Hx of Violent Episodes Against Others - Cancer History Hx Chemotherapy: No Hx Radiation Therapy: No Hx Palliative Cancer Treatment: No - Surgical History Surgery Procedure, Year, and Place: wisdom teeth extraction 2013 Hx Anesthesia Reactions: No Infectious Disease History: No Infectious Disease History: Reports: Hx Clostridium Difficile Denies: Hx Hepatitis, Hx Human Immunodeficiency Virus (HIV), Hx of Known/ Suspected MRSA, Hx Shingles, Hx Tuberculosis, Hx Known/Suspected VRE, Hx Known/ Suspected VRSA, History Other Infectious Disease, Traveled Outside the [place] in Last 30 Days - Family History Known Family History: Positive: Hypertension, Diabetes, Respiratory Disease - asthma, Other - LUNG CANCER AND ALCOHOLISM - Social History Occupation: Employed Full-time Lives: With Family Alcohol Use: None Hx Substance Use: Yes Substance Use Type: Reports: None Substance Use Comment - Amount & Last Used: rare Hx Tobacco Use: Yes Smoking Status (MU): Former Smoker Type: Cigarettes Amount Used/How Often: up to 2 cigs weekly Have You Smoked in the Last Year: No Review of Systems Positive: Fever, Chills ENT: Negative Positive: Shortness Of Breath, Cough Positive: Vomiting, Nausea. Negative: Abdominal Pain Genitourinary: Negative Positive: Myalgia Skin: Negative Neurological/Mental Status: Negative All Other Systems Reviewed And Are Negative: Yes Physical Exam Triage Information Reviewed: Yes Vital Signs On Initial Exam: Initial Vitals Temp Pulse Resp BP Pulse Ox 97.5 F 93 18 147/89 97 12/05/19 10:01 12/05/19 10:12/05/19 10:12/05/19 10:12/05/19 10:01 Vital Signs Reviewed: Yes Appearance: Positive: Well-Appearing - Pt. sitting up in bed in NAD. SO present. Skin: Positive: Warm, Dry Head/Face: Positive: Normal Head/Face Inspection Eyes: Positive: Normal, EOMI Neck: Positive: Supple Respiratory/Lung Sounds: Positive: Breath Sounds Present, Other - Slight expiratory wheeze. Cardiovascular: Positive: Normal, RRR Abdomen Description: Positive: Other: - Morbidly obese. Abd. is soft without tenderness. Neurological: Positive: Normal, CN Intact II-III Psychiatric: Positive: Affect/Mood Appropriate Procedures - Sedation Patient Received Moderate/Deep Sedation with Procedure: No Diagnostics - Vital Signs Vital Signs Temp Pulse Resp BP Pulse Ox 12/05/19 10:01 97.5 F 93 18 147/89 97 - Laboratory Lab Results: Lab Results 12/05/19 Range/Units 10:58 WBC 5.5 (3.5-10.8) 10^3/uL RBC 4.32 (3.70-4.87) 10^6 /uL Hgb 12.4 (12.0-16.0) g/dL Hct 37 (35-47) % MCV 85 (80-97) fL MCH 29 (27-31) pg MCHC 34 (31-36) g/dL RDW 15 (10-15) % Plt Count 316 (150-450) 10^3/uL MPV 7.0 L (7.4-10.4) fL Neut % (Auto) 76.2 % Lymph % (Auto) 10.8 % Travis % (Auto) 12.0 % Eos % (Auto) 0.4 % Baso % (Auto) 0.6 % Absolute Neuts (auto) 4.2 (1.5-7.7) 10^3/ul Absolute Lymphs (auto) 0.6 L (1.0-4.8) 10^3/ul Absolute Monos (auto) 0.7 (0-0.8) 10^3/ul Absolute Eos (auto) 0.0 (0-0.6) 10^3/ul Absolute Basos (auto) 0.0 (0-0.2) 10^3/ul Absolute Nucleated RBC 0.0 10^3/ul Nucleated RBC % 0.0 Result Diagrams: 12/05/19 10:58 12/05/19 10:58 Lab Statement: Any lab studies that have been ordered have been reviewed, and results considered in the medical decision making process. Flu Symptom Course/Dx - Course Course Of Treatment: Pt. with influenza and N/V. Low grade fever. Mildly tachycardia. Pt. has not been able to tolerate POs with zofran. Plan for labs, iv fluids and antiemetics. Nurses unable to obtain vascular access after numerous attempts. Vascular eventually placed one under u/s. Pt. given reglan and two liters of fluids. Labs show mildly low k and mag. U/A is contaminated with ketones and high specific gravity. On re-exam pt. feeling better. She is tolerating PO fluids. Will rx tamiflu, ventolin, and reglan. Increase fluids. Will f.u with OB in 2-3 days for recheck and return to ed if sxs change or worsen. - Diagnoses Provider Diagnoses: Influenza, Nausea & vomiting, Dehydration, Discharge ED - Sign-Out/Discharge Documenting (check all that apply): Patient Departure - Discharge Plan Condition: Improved Disposition: HOME Prescriptions: Albuterol HFA INHALER* [Ventolin HFA Inhaler*] 2 puff INH Q6H PRN #1 mdi PRN Reason: Wheezing Metoclopramide TAB* [Reglan TAB*] 10 mg PO Q6H PRN #12 tab PRN Reason: Nausea Oseltamivir CAP* [Tamiflu CAP*] 75 mg PO BID #10 cap Patient Education Materials: Dehydration (ED), Influenza (ED), Wheezing (ED) Forms: *Work Release Referrals: Nhan Kenney JR, DO [Doctor of Osteopathy] - Additional Instructions: Follow up with OB in 2-3 days for recheck Medication as directed Use inhaler 2 puffs every 4-6 hours Increase fluids and rest Tylenol for pain as directed Return to ER if symptoms change or worsen - Billing Disposition and Condition Condition: IMPROVED Disposition: Home - Attestation Statements Provider Attestation: I was available for consult. This patient was seen by the CATRACHITA. The patient was not presented to, seen by, or examined by me. Andrés Cotton MD
[2019-12-05 11:23] LABS: Albumin 4.1 g/dL (3.2-5.2); Albumin/Globulin Ratio 1.4 (1-3); BUN/Creatinine Ratio 10.3 (8-20); EGFR African American 154.5 (>60); EGFR Non-African American 127.7 (>60); Magnesium 1.8 mg/dL (1.9-2.7); Potassium 3.4 mmol/L (3.5-5.0); Total Bilirubin 0.6 mg/dL (0.2-1.0); Total Protein 7.1 g/dL (6.4-8.9)
[2019-12-05] MEDS ORDERED: Metoclopramide TAB* 10 MG PO ONE (12:46)
[2019-12-05] MEDS: Metoclopramide IV* 5 MG/ML 2 ML VIAL IV ONE ×2 (12:54→13:37)
[2019-12-05 13:19] LABS: Urine Appearance Cloudy; Urine Bilirubin Negative (Negative); Urine Blood Negative (Negative); Urine Color Amber; Urine Glucose Negative (Negative); Urine Ketones 2+ (Negative); Urine Nitrite Negative (Negative); Urine Protein 1+(30 mg/dL) (Negative); Urine Specific Gravity 1.034 (1.010-1.030); Urine Urobilinogen Positive (Negative)
[2019-12-05 13:24] LABS: Urine Bacteria Absent (Absent); Urine Red Blood Cell 1+(3-5/hpf) (Absent); Urine Squamous Epithelial Cell Present (Absent); Urine White Blood Cell 1+(6-10/hpf) (Absent)
[2019-12-05] MEDS ORDERED: Metoclopramide IV* 5 MG/ML 2 ML VIAL IV ONE (13:41)
[2019-12-05] MEDS ORDERED: Acetaminophen TAB* 325 MG PO ONE (13:53)
[2019-12-05 15:35] VITALS: BP 124/76
== END 2019-12-05 15:58 | disposition home or self-care (01) ==
LOC: ED 10:00
DX: O21.0 Mild hyperemesis gravidarum (principal); J11.1 Influenza due to unidentified influenza virus with other respiratory manifestations; Z3A.11 11 weeks gestation of pregnancy; J45.909 Unspecified asthma, uncomplicated; Z79.51 Long term (current) use of inhaled steroids; Z88.1 Allergy status to other antibiotic agents; Z88.0 Allergy status to penicillin; Z87.891 Personal history of nicotine dependence
CPT/HCPCS: 36415; 80053; 81003; 81015; 83735; 85025; 87086; 96361; 96374; 99283; A9270-GY; J2765

== ENCOUNTER 2019-12-11 18:12 | Emergency (ER) | payer OTHER ==
[2019-12-11 19:17] VITALS: BP 147/75
[2019-12-11 19:33] LABS: Influenza A Molecular Negative (Negative); Influenza B Molecular Negative (Negative)
--- NOTE | 2019-12-11 20:24 | UC ---
Respiratory Complaint HPI - HPI Summary HPI Summary: PATIENT COMPLAINS OF 8 DAYS OF SHORTNESS OF BREATH, CHEST TIGHTNESS, PRODUCTIVE COUGH AND POSSIBLE FEVER. HAS SORE THROAT DUE TO COUGH. DENIES ANY RECENT TRAVEL. SWAB POSITIVE FOR INFLUENZA A ON 12/05/2019. IS WONDERING ABOUT BRONCHITIS. ALSO HAS SOME QUESTIONS ABOUT CORONAVIRUS. 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 IS 13 WEEKS . - History of Current Complaint Chief Complaint: UCRespiratory Stated Complaint: RESP COMPLAINT Hx Obtained From: Patient Hx Last Menstrual Period: 13 WEEKS AGO Onset/Duration: Gradual Onset, Lasting Days, Still Present Timing: Constant Severity Initially: Moderate Severity Currently: Moderate Pain Intensity: 8 Pain Scale Used: 0-10 Numeric Character: Cough: Productive Aggravating Factors: Nothing Alleviating Factors: Nothing Associated Signs And Symptoms: Positive: Dyspnea, Fever - SUBJECTIVE, Wheezing, URI. Negative: Chills, Pleuritic Chest Pain - Allergies/Home Medications Allergies/Adverse Reactions: Allergies Allergy/AdvReac Type Severity Reaction Status Date / Time amoxicillin Allergy Rash And Verified 12/11/19 18:44 Itching cefadroxil Allergy Hives Verified 12/11/19 18:44 clindamycin Allergy Nausea And Verified 12/11/19 18:44 Vomiting Home Medications: Home Medications ValACYclovir (*) [Valtrex 1 GM(*)] 1 gm PO DAILY 06/15/19 [History Confirmed 08/15] Albuterol HFA INHALER* [Ventolin HFA Inhaler*] 2 puff INH Q6H PRN #1 mdi [Rx] Fluorometholone 0.1% OPTH.JOSE ALEJANDRO* [Fml 0.1% Opth.susp*] 1 drop BOTH EYES BID [History Confirmed 12/05/19] Ondansetron ODT TAB* [Zofran 4 MG Odt TAB*] 4 mg PO Q8H PRN 12/05/19 [History Confirmed 12/05/19] Acetaminophen [Tylenol Extra Strength] 1,000 mg PO Q12H PRN 12/11/19 [History Confirmed 12/11/19] PMH/Surg Hx/FS Hx/Imm Hx Respiratory History: Asthma Psychological History: Depression Other History Of: Negative For: Anticoagulant Therapy - Surgical History Surgical History: Yes Surgery Procedure, Year, and Place: wisdom teeth extraction 2012 - Family History Known Family History: Positive: Hypertension, Diabetes, Respiratory Disease - asthma, Other - LUNG CANCER AND ALCOHOLISM - Social History Alcohol Use: None Substance Use Type: None Substance Use Comment - Amount & Last Used: rare Smoking Status (MU): Former Smoker Type: Cigarettes Amount Used/How Often: up to 2 cigs weekly Have You Smoked in the Last Year: No When Did the Patient Quit Smoking/Using Tobacco: 2014 Household Exposure Type: Cigarettes - Immunization History Most Recent Influenza Vaccination: Not utd Most Recent Tetanus Shot: UKN Most Recent Pneumonia Vaccination: NONE Review of Systems All Other Systems Reviewed And Are Negative: Yes Constitutional: Positive: Fever - SUBJECTIVE, Fatigue ENT: Positive: Sore Throat Respiratory: Positive: Shortness Of Breath, Cough Cardiovascular: Positive: Negative Gastrointestinal: Positive: Negative Physical Exam Triage Information Reviewed: Yes Appearance: Well-Appearing, No Pain Distress, Well-Nourished, Obese Vital Signs: Initial Vital Signs Temp 98.2 F 12/11/19 18:47 Pulse 88 12/11/19 18:47 Resp 20 12/11/19 18:47 BP 147/75 12/11/19 18:47 Pulse Ox 99 12/11/19 18:47 Laboratory Tests 12/11/19 12/11/19 19:21 19:25 Influenza A (Rapid) Negative Influenza B (Rapid) Negative Group A Strep Rapid Negative Vital Signs Reviewed: Yes Eyes: Positive: Conjunctiva Clear ENT: Positive: Hearing grossly normal, Pharynx normal, TMs normal Neck: Positive: Supple, Nontender, No Lymphadenopathy Respiratory Exam: Normal Cardiovascular Exam: Normal Abdomen Description: Positive: Soft Musculoskeletal: Positive: No Edema Neurological: Positive: Alert Psychological: Positive: Age Appropriate Behavior Skin: Negative: Rashes Respiratory Course/Dx - Course Course Of Treatment: FLU NEGATIVE. STREP NEGATIVE. 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 CONCERN FOR COVID-19. SWAB SENT TODAY. PATIENT DISCHARGED HOME TO SELF-ISOLATION. HEALTH DEPARTMENT WILL BE FOLLOWING UP. - Differential Dx/Diagnosis Provider Diagnosis: Acute bronchitis Discharge ED - Sign-Out/Discharge Documenting (check all that apply): Patient Departure All imaging exams completed and their final reports reviewed: No Studies - Discharge Plan Condition: Stable Disposition: HOME Patient Education Materials: Acute Bronchitis (ED), Viral Syndrome (ED) Forms: *Work Release Referrals: [facility] [Provider Group] [facility] [Outside] Additional Instructions: FLU NEG. STREP NEGATIVE. TESTING FOR COVID-19 COMPLETED TODAY. YOU SHOULD EXPECT RESULTS IN 2-6 DAYS. YOU'RE BEING DISCHARGED TO SELF-ISOLATION AT HOME. THE HEALTH DEPARTMENT WILL BE FOLLOWING UP WITH YOU. CALL 911 IF YOU DEVELOP WORSENING RESPIRATORY DISTRESS, FEVER, PAIN OR ANY OTHER CONCERNING SYMPTOMS. YOUR BP WAS SLIGHTLY ELEVATED TODAY. FOLLOW-UP WITH YOUR OB-[facility]. - Billing Disposition and Condition Condition: STABLE Disposition: Home
== END 2019-12-11 20:18 | disposition home or self-care (01) ==
LOC: UCEAST 18:12
DX: O99.511 Diseases of the respiratory system complicating pregnancy, first trimester (principal); J20.9 Acute bronchitis, unspecified; J45.909 Unspecified asthma, uncomplicated; Z88.0 Allergy status to penicillin; Z88.1 Allergy status to other antibiotic agents; Z87.891 Personal history of nicotine dependence
CPT/HCPCS: 87651; 99211; G0463; U0002

== ENCOUNTER 2020-01-01 15:40 | Emergency (ER) | payer OTHER ==
--- OUTSIDE RECORDS SUMMARY | 2020-01-01 16:09 | XMS REPORT | Continuity of Care Document ---
:1995 External Reference #:[id number] Author Name Rajani Craig MD (transmitted by agent of provider Nancy Diaz) Address [address] [place] [address] Problems Active Problems Provider Date Herpes simplex type 2 infection Ester Chahal CNM Onset: 10/02/2017 Body mass index 40+ - severely obese Ester Chahal CNM Onset: 2019 Primigravida Priti Cobb CNM Onset: 12/08/2019 Asthma Priti Cobb CNM Onset: 12/08/2019 Hypothyroidism Priti Cobb CNM Onset: 12/08/2019 Social History Type Date Description Comments Sex Unknown Cigarette Use Former Cigarette Smoker ETOH Use Denies alcohol use Recreational Drug Use Denies Drug Use Tobacco Use Start: Unknown End: Patient is a former smoker Unknown Smoking Status Reviewed: 06/19/19 Patient is a former smoker Exercise Type/Frequency Exercises rarely Seat Belt/Car Seat Always uses seat belt Allergies, Adverse Reactions, Alerts Active Allergies Reaction Severity Comments Date Clindamycin Hives Severe 11/30/2016 Amoxicillin Hives Severe 11/30/2016 Cefadroxil Serum Sickness Severe 11/30/2016 Latex 12/03/2019 Medications Active Medications SIG Qnty Indications Ordering Date Provider Labetalol HCL 1 by mouth twice a 60tabs Rajani 12/21/2019 100mg day MD Rafa Tablets Benzonatate take 1 capsule PO 30caps Fidelina Henley 12/11/2019 100mg tid Ham, CNM Capsules Promethazine HCL use every 4-6 hours 24units Fidelina Henley 12/08/2019 25mg for nausea and Ham, CNM Suppository vomiting Ondansetron take 1 tablet 30tabs Priti 12/03/2019 4mg dissolved in the Maccarald, CNM Tablets Dispers mouth every 8 hours as needed for nausea and vomiting Valacyclovir HCL for outbreaks take 60tabs Ester Chahal, 500mg by mouth CNM 500mg Tablets every 12 hours x 3 days. start within 72 hours of onset of symptoms.for suppression take 500mg daily Medications Administered in Office Medication SIG Qnty Indications Ordering Provider Date PT SCRN Tbco Id as Non User Rajani Craig MD 06/19/2019 Injection Immunizations Description No Information Available Vital Signs Date Vital Result Comment 12/04/2019 11:37am Height 64 inches 5'4" Weight 363.00 lb BMI (Body Mass Index) 62.3 kg/m2 12/03/2019 11:35am Weight 363.00 lb Results Test Acquired Date Facility Test Result H/L Range Note PNL No 12/21/2019 [facility] Rubella Screen Immune Immune 1 [place] [address] [phone] Hemoglobin A1c 5.2 % Normal 4.0-5.6 2 Hepatitis B Surface Ag Nonreactive Nonreactive 3 Syphillis Igg W/Reflex RPR Negative Negative 4 CBC With No 12/21/2019 [facility] White Blood 10.2 10^3/uL Normal 3.5-10.8 [place] [address] Count [phone] Red Blood Count 4.37 10^6/uL Normal 3.70-4.87 Hemoglobin 12.6 g/dL Normal 12.0-16.0 Hematocrit 38 % Normal 35-47 Mean Corpuscular Volume 86 fL Normal 80-97 Mean Corpuscular Hemoglobin 29 pg Normal 27-31 Mean Corpuscular HGB Conc 34 g/dL Normal 31-36 Red Cell Distribution Width 15 % Normal 10-15 Platelet Count 385 10^3/uL Normal 150-450 Mean Platelet Volume 7.8 fL Normal 7.4-10.4 Type And Screen 12/21/2019 [facility] Patient Blood [place] [address] [phone] Antibody Screen NEGATIVE HIV 1&2 p24 12/21/2019 [facility] HIV 4th Nonreactive [place] [address] Generation [phone] Hepatitis C 12/21/2019 [facility] HCV Index 0.01 s/[place] [address] [phone] Hepatitis C Antibody Negative Negative Laboratory test 12/21/2019 [facility] TSH 2.75 mcIU/mL Normal 0.34-5.60 5 [place] [address] [phone] T4 Free 0.74 ng/dL Normal 0.61-1.12 6 Urine Culture And 12/03/2019 [facility] Urine Culture SEE RESULT 7 [place] [address] BELOW [phone] 1 [id number] 2 Therapeutic target for the treatment of diabetes mellitus patients is <7% HBA1C, and in selective patients <6.0%. Please refer to [place] [employer] diabetic care guidelines for further information. 3 [id number] 4 [id number] 5 [id number] 6 [id number] 7 SEE RESULT BELOW Name: TIANATELMA : [address]: Priti GALEANO Acct: [id number] Unit: [id number] AGE: 24 Location: [facility] Re12/03/19 SEX: F Status: REG REF SPEC: [id number] KILEY: 12/03/19-[address]: Priti Cobb CNM REQ: [id number] RECD: 12/04/196128 STATUS: COMP _ SOURCE: URINE SPDESC: ORDERED: Urine Culture COMMENTS: [id number] Urine Source: Random Procedure Result Reported Site Urine Culture Final 12/05/19- 1451 ML No growth of clinically significant organisms * ML - Main Lab . END OF REPORT DEPARTMENT OF PATHOLOGY, [address] [place] [address] Hieu Cabrera M.D. 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 12/21/2019 Z36.9 Encounter for screening, Mai Ramirez MD unspecified 12/21/2019 Z36.3 Encounter for screening for Bernard Rhodes M.D. malformations 12/21/2019 O09.72 Supervision of high risk due to Rajani Craig MD social problems, second trimester 12/21/2019 Z36.9 Encounter for screening, Laboratory unspecified 12/21/2019 Z36.3 Encounter for screening for Ultrasounds malformations 12/03/2019 O99.211 Obesity complicating , first WALESKA SortoM trimester 12/03/2019 O26.91 related conditions, unspecified, Rajani Craig MD first trimester 12/03/2019 O26.91 related conditions, unspecified, Ultrasounds first trimester Plan of Treatment Future Appointment(s):01/18/2020 10:20 am - Bernard Rhodes M.D. at [facility]06/19/2019 - Rajani Craig, MDA56.09 Other chlamydial infection of lower genitourinary tract Functional Status Description No Information Available Mental Status Description No Information Available Referrals Description No Information Available
--- OUTSIDE RECORDS SUMMARY | 2020-01-01 16:09 | XMS REPORT | Continuity of Care Document ---
:1995 External Reference #:[id number] Author Name Ultrasounds (transmitted by agent of provider Gisella Grewal) Address [address] [place] [address] Problems Active Problems Provider Date Herpes simplex [...] Benzonatate take 1 capsule PO 30caps Fidelina Lory 12/11/2019 100mg tid Ham, CNM Capsules Promethazine [...] Result H/L Range Note PNL No 12/21/2019 [facility] Rubella Screen Immune Immune 1 [place] [address] [phone] Hemoglobin A1c 5.2 % Normal 4.0-5.6 2 Hepatitis B Surface Ag <pending> Syphillis Igg W/Reflex RPR <pending> CBC With No 12/21/2019 [facility] White Blood 10.2 10^3/uL Normal 3.5-10.8 [place] [address] Count [phone] Red Blood Count 4.37 10^6/uL Normal 3.70-4.87 [...] fL Normal 7.4-10.4 Type And Screen 12/21/2019 [facility] Patient [place] [address] [phone] Antibody Screen NEGATIVE Laboratory test 12/21/2019 [facility] Hepatitis C <pending> [place] [address] Antibody [phone] TSH 2.75 mcIU/mL Normal 0.34-5.60 3 T4 Free 0.74 ng/dL Normal 0.61-1.12 4 Urine Culture And 12/03/2019 [facility] Urine Culture SEE RESULT 5 [place] [address] BELOW [phone] 1 [id number] 2 Therapeutic target for the treatment of diabetes mellitus patients is <7% HBA1C, and in selective patients <6.0%. Please refer to [place] [employer] diabetic care guidelines for further information. 3 [id number] 4 [id number] 5 SEE RESULT BELOW Name: ZOYA MONTIELETTA : [address]: Priti Cobb CNM Acct: [id number] Unit: [id number] AGE: 24 Location: [facility] Re12/03/19 SEX: F Status: REG REF SPEC: [id number] KILEY: 12/03/19-1433 [facility] DR: Priti GALEANO REQ: [id number] RECD: 12/04/199462 STATUS: COMP _ SOURCE: URINE SPDESC: ORDERED: Urine Culture COMMENTS: [id number] Urine Source: Random Procedure Result Reported Site Urine Culture Final 12/05/19- 1451 ML No growth of clinically significant organisms * ML - Main Lab . END OF REPORT DEPARTMENT OF PATHOLOGY, [address] [place] [address] Hieu Cabrera M.D. Director [facility] # [id number] Procedures Date Code Description Status 12/21/2019 68450 Nuchal Translucency Ultrasound /First Gestation Completed 12/03/2019 12749 OB Ultrasound First Trimester Completed Medical Devices [...] 10:20 am - Bernard Rhodes M.D. at [facility]06/19/2019 - Rajani Craig, MDA56.09 Other chlamydial infection of lower genitourinary tract Functional Status Description No Information Available Mental Status Description No Information Available Referrals Description No Information Available
--- OUTSIDE RECORDS SUMMARY | 2020-01-01 16:09 | XMS REPORT | Continuity of Care Document ---
:1995 External Reference #:[id number] Author Name Laboratory (transmitted by agent of provider Nancy Diaz) Address [address] [place] [address] Problems Active Problems Provider Date Herpes simplex type 2 infection Ester Chahal CNM Onset: 10/02/2017 Body mass index 40+ - severely obese Ester Chahal CNM Onset: 2019 Primigravida Grey Cobb CNM Onset: 12/08/2019 Asthma Grey Cobb CNM Onset: 12/08/2019 Hypothyroidism Gery Cobb CNM Onset: 12/08/2019 Essential hypertension Ester Chahal CNM Onset: 12/26/2019 Social History Type Date Description Comments Sex [...] Rajani 12/21/2019 100mg day MD Rafa Tablets Promethazine HCL use every 4-6 hours 24units Fidelina Henley 12/08/2019 25mg for nausea and Ham, CNM Suppository vomiting Ondansetron take 1 tablet 30tabs Grey 12/03/2019 4mg dissolved in the Maccarald, CNM Tablets Dispers mouth every 8 hours as needed for nausea and vomiting Valacyclovir HCL for outbreaks take 60tabs Ester Chahal, 500mg by mouth CNM 500mg Tablets every 12 hours x 3 days. start within 72 hours of onset of symptoms.for suppression take 500mg daily History Medications Benzonatate take 1 capsule PO 30caps Fidelina Lory 12/11/2019 - 100mg tid Ham, CNM 12/25/2019 Capsules Medications Administered in Office Medication SIG [...] Result H/L Range Note PNL No 12/21/2019 [facility] Rubella Screen Immune Immune 1 Urine [place], [place] [address] [phone] Hemoglobin A1c 5.2 % Normal 4.0-5.6 2 Hepatitis B Surface Ag Nonreactive Nonreactive 3 Syphillis Igg W/Reflex RPR Negative Negative 4 CBC With No 12/21/2019 [facility] White Blood 10.2 10^3/uL Normal 3.5-10.8 [place] [address] Count [phone] Red Blood Count 4.37 10^6/uL Normal 3.70-4.87 [...] fL Normal 7.4-10.4 Type And Screen 12/21/2019 [facility] Patient [place] [address] [phone] Antibody Screen NEGATIVE Lead 12/21/2019 [facility] Lead,Venous, B < 1.0 g/dL 0.0- 4.9 5 [place], [place] [address] [phone] Venous/Capillary Venous Submitting Laboratory 6 HIV 1&2 p24 12/21/2019 [facility] HIV 4th Non[place] [address] Generation [phone] Hepatitis C 12/21/2019 [facility] HCV Index 0.01 s/[place] [address] [phone] Hepatitis C Antibody Negative Negative Laboratory test 12/21/2019 [facility] TSH 2.75 mcIU/mL Normal 0.34-5.60 7 finding [place], [place] [address] [phone] T4 Free 0.74 ng/dL Normal 0.61-1.12 8 Serum Integrated Screen, Part 1 (LA) 12/21/2019 [facility] Comment: SEE NOTE 9 Referring Physician Name GREY COBB Referring Physician Referring Physician Npi NOT GIVEN Date of 1995 Collection Date 12/21/2019 Maternal Weight 363 lbs Est'd Date of Delivery 06/22/2020 JONATHAN Determined by ULTRASOUND Mother's Ethnic Origin Number of Fetuses 1 Insulin Depend Diabetic NO Repeat Specimen NO Hx Of Neural Tube Defects NO Prev Down Synd NO Donor Egg NO Donor Age: Egg Retrieval NOT GIVEN Cigarette smoker NO Laboratory test 12/21/2019 [facility] Enhanced PDF SEE IMAGE finding Report [id number] Urine Culture And 12/03/2019 [facility] Urine Culture SEE RESULT 10 [place] [address] BELOW [phone] [id number] 2 Therapeutic target for the treatment of diabetes mellitus patients is <7% HBA1C, and in selective patients <6.0%. Please refer to [place] [employer] diabetic care guidelines for further information. 3 [id number] 4 [id number] 5 ADDITIONAL INFORMATION Testing performed by Inductively Coupled Plasma-Mass Spectrometry (ICP-MS). This test was developed and its performance characteristics determined by [facility] in a manner consistent with CLIA requirements. This test has not been cleared or approved by the U.S. Food and Drug Administration. 6 Test Performed by: [facility] [address] [place] [address] Press Cleaner: Jose Cruz M.D. Ph.D.; IA# [id number] 8 [id number] 9 Thank you for submitting this patients Part 1 specimen. Please submit her Part 2 specimen between 12/30/2019-02/23/2020 (15.0 and 22.9 weeks gestation) with 12/30/2019-01/12/2020 (15.0 and 16.9 weeks gestation) being optimal. When submitting Part 2, please include the following Specimen # from Part 1: [id number] This test was developed and its analytical performance characteristics have been determined by [facility]. It has not been cleared or approved by FDA. This assay has been validated pursuant to the CLIA regulations and is used for clinical purposes. For additional information, please refer to http://[employer].CitizenNet/faq/FAQ91 (This link is being provided for informational/educational purposes only.) It has been observed that patients who smoke cigarettes during may have a slightly increased risk of having a false positive DOROTHY screen for Down Syndrome or trisomy 18. If you have questions concerning this report: For clinical consultation, call ; For technical questions, call ext [phone]; For recalculations, fax to [phone]. 10 SEE RESULT BELOW Name: TIANAPAO : [address]: Grey Cobb [facility] Acct: [id number] Unit: [id number] AGE: 24 Location: [facility] Re12/03/19 SEX: F Status: REG REF SPEC: [id number] KILEY: 12/03/19-[address] [facility] [address]: Grey Cobb [facility] REQ: [id number] RECD: 12/04/190 STATUS: COMP _ SOURCE: URINE SPDESC: ORDERED: Urine Culture COMMENTS: [id number] Urine Source: Random Procedure Result Reported Site Urine Culture Final 12/05/19- 1451 ML No growth of clinically significant organisms * ML - Main Lab . END OF REPORT DEPARTMENT OF PATHOLOGY, [address] [place] [address] Hieu Cabrera M.D. Director [facility] # [id number] Procedures Date Code Description Status 12/21/2019 56579 Nuchal Translucency Ultrasound /First Gestation Completed 12/03/2019 72949 OB Ultrasound First Trimester Completed Medical Devices Description No Information Available Encounters Description No Information Available Assessments Date Code Description Provider 12/28/2019 Z36.9 Encounter for screening, Rajani Craig MD unspecified 12/28/2019 Z36.9 Encounter for screening, Laboratory unspecified 12/26/2019 I10 Essential (primary) hypertension Ester Chahal CNM 12/26/2019 O21.0 Mild hyperemesis gravidarum Ester Chahal CNM 12/26/2019 I10 Essential (primary) hypertension Ester Chahal CNM 12/26/2019 O21.0 Mild hyperemesis gravidarum Ester Chahal CNM 12/21/2019 Z14.8 Genetic carrier of other disease Bernard Rhodes M.D. 12/21/2019 Z36.9 Encounter for screening, Mai Ramirez MD unspecified 12/21/2019 Z36.3 Encounter for screening for Bernard Rhodes M.D. malformations 12/21/2019 O09.72 Supervision of high risk due to Rajani Craig MD social problems, second trimester 12/21/2019 Z36.9 Encounter for screening, Laboratory unspecified 12/21/2019 Z36.3 Encounter for screening for Ultrasounds malformations 12/20/2019 I10 Essential (primary) hypertension Ester Chahal CNM 12/11/2019 J06.9 Acute upper respiratory infection, WALESKA Cisneros unspecified 12/03/2019 O99.211 Obesity complicating , first Grey Cobb, GISSELL trimester 12/03/2019 O26.91 related conditions, Rajani Craig MD unspecified, first trimester 12/03/2019 O26.91 related conditions, Ultrasounds unspecified, first trimester Plan of Treatment Future Appointment(s):01/18/2020 10:20 am - Bernard [facility] M[facility]D. at [facility]12/26/2019 - Ester Chahal CNMI10 Essential (primary) hypertensionComments :I recommend that you not repeat your dose this morning and wait and take scheduled dose this evening.As we discussed it's reasonable to have your BP checked at work this afternoon. Please call if >160/>100 or you experience headache, visual changes, dizziness or other concerning concerns.Keep return ob as hftfxrialQ71.0 Mild hyperemesis gravidarumComments: Try taking your medication after a small snack such as crackers or toast to see if that prevents thenausea and vomiting after your doseFollow-up with our office if you are unable to keep your repeat dose of medication down later [id number] Essential (primary) hypertensionComments:I recommend that you not repeat your dose this morning and wait and take scheduled dose this evening.As we discussed it's reasonable to have your BP checked at work this afternoon. Please call if >160/>100 or you experience headache, visual changes, dizziness or other concerning concerns.Keep return ob as trieathqbY02.0 Mild hyperemesis gravidarumComments:Try taking your medication after a small snack such as crackers or toast to see if that prevents thenausea and vomiting after your doseFollow-up with our office if you are unable to keep your repeat dose of medication down later today Functional Status Description No Information Available Mental Status Description No Information Available Referrals Refer to Reason for Referral Status Appt [facility] chronic HTN, unable to see NT secondary Created to maternal body habitus needs anatomy scan at [address] [place] [address] [address] [place] [id number] [phone]
--- OUTSIDE RECORDS SUMMARY | 2020-01-01 16:09 | XMS REPORT | Continuity of Care Document ---
:1995 External Reference #:[id number] Author Name Laboratory (transmitted by agent of provider Josette Hodges) Address [address] [place] [address] Problems Active Problems Provider Date Herpes simplex type 2 infection Ester Chahal CNM Onset: 10/02/2017 Body mass index 40+ - severely obese Ester Chahal CNM Onset: 2019 Primigravida Grey Cobb CNM Onset: 12/08/2019 Asthma Grey Cobb CNM Onset: 12/08/2019 Hypothyroidism Grey Cobb CNM Onset: 12/08/2019 Essential hypertension Ester [...] Result H/L Range Note PNL No 12/21/2019 [facility] Rubella Screen Immune Immune 1 [place] [address] [phone] Hemoglobin A1c 5.2 % Normal 4.0-5.6 2 Hepatitis B Surface Ag Nonreactive Nonreactive 3 Syphillis Igg W/Reflex RPR Negative Negative 4 CBC With No 12/21/2019 [facility] White Blood 10.2 10^3/uL Normal 3.5-10.8 [place] [address] Count [phone] Red Blood Count 4.37 10^6/uL Normal 3.70-4.87 [...] fL Normal 7.4-10.4 Type And Screen 12/21/2019 [facility] Patient Blood Type O Positive [place], [place] [address] [phone] Antibody Screen NEGATIVE Lead 12/21/2019 [facility] Lead,Venous, B < 1.0 g/dL 0.0- 4.9 5 [place], [place] [address] [phone] Venous/Capillary Venous Submitting Laboratory 6 HIV 1&2 p24 12/21/2019 [facility] HIV 4th [place] [address] Generation [phone] Hepatitis C 12/21/2019 [facility] HCV Index 0.01 s/[place] [address] [phone] Hepatitis C Antibody Negative Negative Laboratory test 12/21/2019 [facility] TSH 2.75 mcIU/mL Normal 0.34-5.60 7 [place] [address] [phone] T4 Free 0.74 ng/dL Normal 0.61-1.12 8 Serum Integrated Screen, Part 1 ([place]) 12/21/2019 [facility] Comment: SEE NOTE 9 Referring Physician [...] GIVEN Cigarette smoker NO Laboratory test 12/21/2019 [facility] Enhanced PDF SEE IMAGE finding Report [id number] Urine Culture And 12/03/2019 [facility] Urine Culture SEE RESULT 10 [place] [address] BELOW [phone] 1 [id number] 2 Therapeutic target for the treatment of diabetes mellitus patients is <7% HBA1C, and in selective patients <6.0%. Please refer to [place] Diabetes Association diabetic care guidelines for further information. 3 [id number] 4 [id number] 5 ADDITIONAL INFORMATION Testing performed by Inductively Coupled Plasma-Mass Spectrometry (ICP-MS). This test was developed and its performance characteristics determined by [facility] in a manner consistent with CLIA requirements. This test has not been cleared or approved by the U.S. Food and Drug Administration. 6 Test Performed by: [facility] [address] [address] [place]: Jose Cruz M.D. Ph.D.; [place]# [id number] 9 Thank you for submitting this patients Part 1 specimen. Please submit her Part 2 specimen between 12/30/2019-02/23/2020 (15.0 and 22.9 weeks gestation) with 12/30/2019-01/12/2020 (15.0 and 16.9 weeks gestation) being optimal. When submitting Part 2, please include the following Specimen # from Part 1: [id number] This test was developed and its analytical performance characteristics have been determined by [facility]. It has not been cleared or approved by FDA. This assay has been validated pursuant to the CLIA regulations and is used for clinical purposes. For additional information, please refer to http://education.BeTheBeast/faq/FAQ91 (This link is being provided for informational/educational purposes only.) It has been observed that patients who smoke cigarettes during may have a slightly increased risk of having a false positive DOROTHY screen for Down Syndrome or trisomy 18. If you have questions concerning this report: For clinical consultation, call ; For technical questions, call ext [phone]; For recalculations, fax to [phone]. 10 SEE RESULT BELOW Name: TIANAPAO : [address]: Grey Cobb [facility] Acct: [id number] Unit: [id number] AGE: 24 Location: [facility] Re12/03/19 SEX: F Status: REG REF SPEC: [id number] KILEY: 12/03/19-[address] [facility] [address]: Grey Cobb [facility] REQ: [id number] RECD: 12/04/195 STATUS: COMP _ SOURCE: URINE SPDESC: ORDERED: Urine Culture COMMENTS: [id number] Urine Source: Random Procedure Result Reported Site Urine Culture Final 12/05/19- 1451 ML No growth of clinically significant organisms * ML - Main Lab . END OF REPORT DEPARTMENT OF PATHOLOGY, [address] [place] [address] Hieu Cabrera M.D. Director [facility] # [id number] Procedures Date Code Description Status 12/21/2019 58364 Nuchal Translucency Ultrasound /First Gestation Completed 12/03/2019 99574 OB Ultrasound First Trimester Completed Medical Devices Description No Information Available Encounters Description No Information Available Assessments Date Code Description Provider 12/28/2019 Z36.9 Encounter for screening, Laboratory unspecified [...] unspecified 12/03/2019 O99.211 Obesity complicating , first WALESKA Sorto trimester 12/03/2019 O26.91 related conditions, Rajani Craig MD unspecified, first trimester 12/03/2019 O26.91 related conditions, Ultrasounds unspecified, first trimester Plan of Treatment Future Appointment(s):01/18/2020 10:20 am - Bernard [facility] M.D. at [facility]12/26/2019 - Ester Chahal [id number] Essential (primary) hypertensionComments :I recommend that you not repeat your dose this morning and wait and take scheduled dose this evening.As we discussed it's reasonable to have your BP checked at work this afternoon. Please call if >160/>100 or you experience headache, visual changes, dizziness or other concerning concerns.Keep return ob as [id number] Mild hyperemesis gravidarumComments: Try taking your medication after a small snack such as crackers or toast to see if that prevents thenausea and vomiting after your doseFollow-up with our office if you are unable to keep your repeat dose of medication down later [id number] Essential (primary) hypertensionComments:I recommend that you not repeat your dose this morning and wait and take scheduled dose this evening.As we discussed it's reasonable to have your BP checked at work this afternoon. Please call if >160/>100 or you experience headache, visual changes, dizziness or other concerning concerns.Keep return ob as [id number] Mild hyperemesis gravidarumComments:Try taking your medication after a small snack such as crackers or toast to see if that prevents thenausea and vomiting after your doseFollow-up with our office if you are unable to keep your repeat dose of medication down later today Functional Status Description No Information Available Mental Status Description No Information Available Referrals Refer to Reason for Referral Status Appt Date [place] [facility] chronic HTN, unable to see NT secondary Created to maternal body habitus needs anatomy scan at [address] [place] [address] [address] [facility] [place] [address] [phone]
--- OUTSIDE RECORDS SUMMARY | 2020-01-01 16:09 | XMS REPORT | Continuity of Care Document ---
:1995 External Reference #:[id number] Author Name Laboratory (transmitted by agent of provider Gisella Grewal) Address [address] [place] [address] Problems Active Problems Provider Date Herpes simplex [...] Result H/L Range Note PNL No 12/21/2019 [facility] Rubella Screen Immune Immune 1 [place] [address] [phone] Hemoglobin A1c 5.2 % Normal 4.0-5.6 2 Hepatitis B Surface Ag <pending> Syphillis Igg W/Reflex RPR <pending> CBC With No 12/21/2019 [facility] White Blood 10.2 10^3/uL Normal 3.5-10.8 [place] [address] Count [phone] Red Blood Count 4.37 10^6/uL Normal 3.70-4.87 [...] fL Normal 7.4-10.4 Type And Screen 12/21/2019 [facility] Patient [place] [address] [phone] Antibody Screen NEGATIVE Laboratory test 12/21/2019 [facility] Hepatitis C <pending> [place] [address] Antibody [phone] TSH 2.75 mcIU/mL Normal 0.34-5.60 3 T4 Free 0.74 ng/dL Normal 0.61-1.12 4 Urine Culture And 12/03/2019 [facility] Urine Culture SEE RESULT 5 [place] [address] BELOW [phone] 1 [id number] 2 Therapeutic target for the treatment of diabetes mellitus patients is <7% HBA1C, and in selective patients <6.0%. Please refer to [place] [employer] diabetic care guidelines for further information. 3 [id number] 4 [id number] 5 SEE RESULT BELOW Name: ZOYA MONTIELETTA : [address]: Priti Cobb CNM Acct: [id number] Unit: [id number] AGE: 24 Location: [facility] Re12/03/19 SEX: F Status: REG REF SPEC: [id number] KILEY: 12/03/19-[address] [facility] [address]: Priti GALEANO REQ: [id number] RECD: 12/04/191884 STATUS: COMP _ SOURCE: URINE SPDESC: ORDERED: Urine Culture COMMENTS: [id number] Urine Source: Random Procedure Result Reported Site Urine Culture Final 12/05/19- 1451 ML No growth of clinically significant organisms * ML - Main Lab . END OF REPORT DEPARTMENT OF PATHOLOGY, [address] [place] [address] Hieu Cabrera M.D. Director [facility] # [id number] Procedures Date Code Description Status 12/21/2019 98300 Nuchal Translucency Ultrasound /First Gestation Completed 12/03/2019 63667 OB Ultrasound First Trimester Completed Medical Devices Description No Information Available Encounters Description No Information Available Assessments Date Code Description Provider 12/21/2019 Z36.9 Encounter for screening, Mai Ramirez MD unspecified 12/21/2019 O09.72 Supervision of high risk due to Rajani Craig MD social problems, second trimester 12/21/2019 Z36.9 Encounter for screening, Laboratory unspecified 12/21/2019 Z36.3 Encounter for screening for Ultrasounds malformations 12/03/2019 O99.211 Obesity complicating , first WALESKA Sorto trimester 12/03/2019 O26.91 related conditions, unspecified, Rajani Craig MD first trimester 12/03/2019 O26.91 related conditions, unspecified, Ultrasounds first trimester Plan of Treatment Future Appointment(s):01/18/2020 10:20 am - Bernard Rhodes M.D. at [facility]06/19/2019 - Rajani Craig, MDA56.09 Other chlamydial infection of lower genitourinary tract Functional Status Description No Information Available Mental Status Description No Information Available Referrals Description No Information Available
--- OUTSIDE RECORDS SUMMARY | 2020-01-01 16:10 | XMS REPORT | Continuity of Care Document ---
:1995 External Reference #:[id number] Author Name Laboratory (transmitted by agent of provider Keyanna Bravo) Address [address] [place] [address] Problems Active Problems Provider Date Herpes simplex type 2 infection Ester Chahal CNM Onset: 10/02/2017 Body mass index 40+ - severely obese Ester Chahal CNM Onset: 2019 Primigravida Priti Cobb CNM Onset: 12/08/2019 Asthma Priti Cobb CNM Onset: 12/08/2019 Hypothyroidism Priti oCbb CNM Onset: 12/08/2019 Social History Type Date [...] Medications SIG Qnty Indications Ordering Date Provider Benzonatate take 1 capsule PO 30caps Fidelina [...] Valacyclovir HCL for outbreaks take 60tabs Ester Chahal 500mg by mouth CNM 500mg Tablets every [...] Result H/L Range Note PNL No 12/21/2019 [facility] Rubella Screen <pending> [place] [address] [phone] Hemoglobin A1c <pending> Hepatitis B Surface Ag <pending> Syphillis Igg W/Reflex RPR <pending> Laboratory test 12/21/2019 [facility] Hepatitis C <pending> [place] [address] Antibody [phone] TSH <pending> T4 Free <pending> Urine Culture And 12/03/2019 [facility] Urine Culture SEE RESULT 1 [place] [address] BELOW [phone] 1 SEE RESULT BELOW Name: TELMA MONTIEL : [address]: Priti Cobb [facility] Acct: [id number] Unit: [id number] AGE: 24 Location: [facility] Re12/03/19 SEX: F Status: REG REF SPEC: [id number] KILEY: 12/03/19-[address]: Priti Cobb [facility] REQ: [id number] RECD: 12/04/190791 STATUS: COMP _ SOURCE: URINE SPDESC: ORDERED: Urine Culture COMMENTS: [id number] Urine Source: Random Procedure Result Reported Site Urine Culture Final 12/05/19- 1451 ML No growth of clinically significant organisms * ML - Main Lab . END OF REPORT DEPARTMENT OF PATHOLOGY, [address] [place] [address] Hieu Cabrera M.D. Director [facility] # [id number] Procedures Date Code Description Status 12/21/2019 88703 Nuchal Translucency Ultrasound /First Gestation Completed 12/03/2019 21219 OB Ultrasound First Trimester Completed Medical Devices Description No Information Available Encounters Description No Information Available Assessments Date Code Description Provider 12/21/2019 Z36.9 Encounter for screening, Laboratory unspecified 12/21/2019 Z36.3 Encounter for screening for Ultrasounds malformations 12/03/2019 O99.211 Obesity complicating , first WALESKA SortoM trimester 12/03/2019 O26.91 related conditions, unspecified, Rajani Craig MD first trimester 12/03/2019 O26.91 related conditions, unspecified, Ultrasounds first trimester Plan of Treatment No Information Available Functional Status Description No Information Available Mental Status Description No Information Available Referrals Description No Information Available
--- OUTSIDE RECORDS SUMMARY | 2020-01-01 16:10 | XMS REPORT | Continuity of Care Document ---
:1995 External Reference #:[id number] Author Name Priti Cobb CNM (transmitted by agent of provider Gisella Grewal) Address [address] [place] [address] Problems Active Problems Provider Date Herpes simplex [...] Priti 12/03/2019 4mg dissolved in the [place], GISSELL Tablets Dispers mouth every 8 hours as [...] 1/35 1 by mouth every 84tabs Rajani Craig, 06/19/2019 - 1-35mg-mcg day/ start the 12/03/2019 [...] Date Facility Test Result H/L Range Note Urine Culture And 12/03/2019 [facility] Urine SEE RESULT 1 [place] [address] Culture BELOW [phone] 1 SEE RESULT BELOW Name: TELMA MONTIEL : [address]: Priti Cobb [facility] Acct: [id number] Unit: [id number] AGE: 24 Location: [facility] Re12/03/19 SEX: F Status: REG REF SPEC: [id number] KILEY: 12/03/19-[address] [facility] [address]: Priti Cobb [facility] REQ: [id number] RECD: 12/04/19-1306 STATUS: COMP _ SOURCE: URINE SPDESC: ORDERED: Urine Culture COMMENTS: [id number] Urine Source: Random Procedure Result Reported Site Urine Culture Final 12/05/19- 1451 ML No growth of clinically significant organisms * ML - Main Lab . END OF REPORT DEPARTMENT OF PATHOLOGY, [address] [place] [address] Hieu Cabrera M.D. Director [facility] # [id number] Procedures Date Code Description Status 12/03/2019 26136 OB Ultrasound First Trimester Completed Medical Devices Description No Information Available Encounters Type Date Location Provider Dx Diagnosis Office Visit 06/19/2019 [facility] Rajani Craig, A56.09 Other chlamydial 2:15p infection of lower genitourinary tract Assessments Date Code Description Provider 12/03/2019 O99.211 Obesity complicating , first WALESKA Sorto trimester 12/03/2019 O26.91 related conditions, unspecified, Rajani Craig MD first trimester 12/03/2019 O26.91 related conditions, unspecified, Ultrasounds first trimester 06/19/2019 A56.09 Other chlamydial infection of lower Rajani Craig MD genitourinary tract Plan of Treatment No Information Available Functional Status Description No Information Available Mental Status Description No Information Available Referrals Description No Information Available
--- OUTSIDE RECORDS SUMMARY | 2020-01-01 16:10 | XMS REPORT | Continuity of Care Document ---
:1995 External Reference #:[id number] Author Name Rajani Craig MD (transmitted by agent of provider Perlita Capellan) Address [address] [place] [address] Problems Active Problems Provider Date Herpes simplex [...] Result H/L Range Note PNL No 12/21/2019 [facility] Rubella Screen <pending> [place] [address] [phone] Hemoglobin A1c <pending> Hepatitis B Surface Ag <pending> Syphillis Igg W/Reflex RPR <pending> Laboratory test 12/21/2019 [facility] Hepatitis C <pending> [place] [address] Antibody [phone] TSH <pending> T4 Free <pending> Urine Culture And 12/03/2019 [facility] Urine Culture SEE RESULT 1 [place] [address] BELOW [phone] 1 SEE RESULT BELOW Name: TIANATELMA : [address]: Priti Cobb CNM Acct: [id number] Unit: [id number] AGE: 24 Location: [facility] Re12/03/19 SEX: F Status: REG REF SPEC: [id number] KILEY: 12/03/19-1433 [facility] DR: Priti Cobb [facility] REQ: [id number] RECD: 12/04/195 STATUS: COMP _ SOURCE: URINE SPDESC: ORDERED: Urine Culture COMMENTS: [id number] Urine Source: Random Procedure Result Reported Site Urine Culture Final 12/05/19- 1451 ML No growth of clinically significant organisms * ML - Main Lab . END OF REPORT DEPARTMENT OF PATHOLOGY, [address] [place] [address] Hieu Cabrera M.D. Director [facility] # [id number] Procedures Date Code Description Status 12/21/2019 79394 Nuchal Translucency Ultrasound /First Gestation Completed 12/03/2019 36745 OB Ultrasound First Trimester Completed Medical Devices [...] 10:20 am - Bernard Rhodes M.D. at [facility]06/19/2019 - Rajani Craig, MDA56.09 Other chlamydial infection of lower genitourinary tract Functional Status Description No Information Available Mental Status Description No Information Available Referrals Description No Information Available
[2020-01-01 17:10] LABS: ABS Eosinophils 0.3 10^3/ul (0-0.6); ABS Lymphocytes 1.8 10^3/ul (1.0-4.8); ABS Monocytes 0.7 10^3/ul (0-0.8); ABS Neutrophils 7.3 10^3/ul (1.5-7.7); Eosinophil % 3.1 %; Hematocrit 35 % (35-47); Hemoglobin 12.2 g/dL (12.0-16.0); Lymphocyte % 17.4 %; Mean Corpuscular HGB Conc 35 g/dL (31-36); Mean Corpuscular Hemoglobin 30 pg (27-31); Mean Corpuscular Volume 84 fL (80-97); Platelet Count 355 10^3/uL (150-450); Red Blood Count 4.13 10^6 /uL (3.70-4.87); Red Cell Distribution Width 14 % (10-15); White Blood Count 10.1 10^3/uL (3.5-10.8)
[2020-01-01 18:13] LABS: Urine Appearance Cloudy; Urine Bilirubin Negative (Negative); Urine Blood Negative (Negative); Urine Color Yellow; Urine Glucose Negative (Negative); Urine Ketones Trace (Negative); Urine Nitrite Negative (Negative); Urine Protein Negative (Negative); Urine Specific Gravity 1.029 (1.010-1.030); Urine Urobilinogen Negative (Negative)
--- NOTE | 2020-01-01 20:30 | ED ---
- HPI Summary HPI Summary: 24 y/o F with hx asthma and morbid obesity presenting to [facility] c/o 05/05 abdominal cramping x2 days and vaginal bleeding 1515 today. Patient is 15 weeks . A2. She has had 2 miscarriages both in the second trimester. Patient developed abdominal cramping 2 days ago. She went to work today and was having severe abdominal cramping. 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 She went to bathroom and noticed blood in toilet bowl. She wiped and noted blood clot. She wiped again and didn't see blood. She came here after. She denies fever, pain with urination, n/v/d. Patient is short of breath at baseline. She is followed by OB Dr. Craig whom she saw recently. Has an OB appointment next week. Symptoms aggravated by nothing. Symptoms alleviated by nothing. Medications reviewed. Allergies noted. - History of Current Complaint Chief Complaint: EDVaginalBleeding Stated Complaint: POSS MISCARRIAGE PER PT Time Seen by Provider: 01/01/20 20:25 Hx Obtained From: Patient Chief Complaint: Vaginal Bleeding, Other: - abdominal cramping Onset/Duration: Started Hours Ago - 1515 today, Started Days Ago - 2, Still Present Timing: Constant Current Severity: Severe Pain Intensity: 8 Aggravating Factors: Nothing Alleviating Factors: Nothing Associated Signs and Symptoms: Positive: Negative - fever, pain with urination, n/v/d - Assessment Hx Now: No Hx Hysterectomy: No - Additional Pertinent History Primary Care Physician: [id number] - Allergies/Home Medications Allergies/Adverse Reactions: Allergies Allergy/AdvReac Type Severity Reaction Status Date / Time amoxicillin Allergy Rash And Verified 01/01/20 15:57 Itching cefadroxil Allergy Hives Verified 01/01/20 15:57 clindamycin Allergy Nausea And Verified 01/01/20 15:57 Vomiting Home Medications: Home Medications ValACYclovir (*) [Valtrex 1 GM(*)] 1 gm PO DAILY 06/15/19 [History Confirmed 08/15] Albuterol HFA INHALER* [Ventolin HFA Inhaler*] 2 puff INH Q6H PRN #1 mdi [Rx] Fluorometholone 0.1% OPTH.JOSE ALEJANDRO* [Fml 0.1% Opth.susp*] 1 drop BOTH EYES BID [History Confirmed 12/05/19] Ondansetron ODT TAB* [Zofran 4 MG Odt TAB*] 4 mg PO Q8H PRN 12/05/19 [History Confirmed 12/05/19] Acetaminophen [Tylenol Extra Strength] 1,000 mg PO Q12H PRN 12/11/19 [History Confirmed 12/11/19] PMH/Surg Hx/FS Hx/Imm Hx Endocrine/Hematology History: Reports: Other Endocrine/Hematological Disorders - morbid obesity Denies: Hx Anticoagulant Therapy, Hx Blood Disorders, Hx Diabetes, Hx Thyroid Disease, Hx Anemia Cardiovascular History: Denies: Hx Hypertension Respiratory History: Reports: Hx Asthma Denies: Hx Chronic Obstructive Pulmonary Disease (COPD) History: Reports: Other Problems/Disorders - tubo-ovarian abscess 02/2018 Neurological History: Denies: Hx Headaches, Hx Migraine, Other Neuro Impairments/Disorders Psychiatric History: Reports: Hx Anxiety, Hx Eating Disorder - binging & purging age 11-18, Hx Depression Denies: Hx Suicide Attempt, Hx of Violent Episodes Against Others - Cancer History Hx Chemotherapy: No Hx Radiation Therapy: No Hx Palliative Cancer Treatment: No - Surgical History Surgery Procedure, Year, and Place: wisdom teeth extraction 2012 Hx Anesthesia Reactions: No Infectious Disease History: Yes Infectious Disease History: Reports: Hx Clostridium Difficile Denies: Hx Hepatitis, Hx Human Immunodeficiency Virus (HIV), Hx of Known/ Suspected MRSA, Hx Shingles, Hx Tuberculosis, Hx Known/Suspected VRE, Hx Known/ Suspected VRSA, History Other Infectious Disease, Traveled Outside the [place] in Last 30 Days - Family History Known Family History: Positive: Hypertension, Diabetes, Respiratory Disease - asthma, Other - LUNG CANCER AND ALCOHOLISM - Social History Alcohol Use: Rare Hx Substance Use: Yes Hx Tobacco Use: Yes Smoking Status (MU): Former Smoker Type: Cigarettes Amount Used/How Often: up to 2 cigs weekly Have You Smoked in the Last Year: No Review of Systems Negative: Fever Positive: Other - abdominal cramping. Negative: Vomiting, Diarrhea, Nausea Positive: other - vaginal bleeding. Negative: pain All Other Systems Reviewed And Are Negative: Yes Physical Exam - Summary Physical Exam Summary: General: Morbidly obese FEMALE. No acute distress. HEENT: Normocephalic, Atraumatic. Eyes: Conjuctiva normal, PERRL. Oropharynx: Clear, mucous membranes moist, (-) exudates. Neck: Soft, FROM, (-) lymphadenopathy, (-) thyromegaly, (-) JVD. Cardiovascular: Normal sinus rhythm, (-) murmur. Lungs: Clear to auscultation bilaterally (-) wheezes, (-) rales, (-) rhonchi. Abdomen: Soft, non-tender, non-distended, (-) organomegaly, normal bowel sounds. Back: (-) CVA tenderness Extremities: No edema. Skin: Warm, dry, (-) rash. Neuro: Alert and oriented x3, moves all extremities equally. No ataxia. No gait disturbance. No sensory deficit. Normal strength, normal sensation. Psychiatric: Mood normal, affect normal. - Physical Exam Triage Information Reviewed: Yes Vital Signs Reviewed: Yes Procedures - Sedation Patient Received Moderate/Deep Sedation with Procedure: No Diagnostics - Vital Signs Vital Signs Temp Pulse Resp BP Pulse Ox 01/01/20 15:50 97.3 F 101 24 134/105 96 - Laboratory Lab Results: Lab Results 01/01/20 01/01/20 01/01/20 Range/Units 17:03 17:03 17:03 WBC 10.1 (3.5-10.8) 10^3/uL RBC 4.13 (3.70-4.87) 10^6 /uL Hgb 12.2 (12.0-16.0) g/dL Hct 35 (35-47) % MCV 84 (80-97) fL MCH 30 (27-31) pg MCHC 35 (31-36) g/dL RDW 14 (10-15) % Plt Count 355 (150-450) 10^3/uL MPV 7.0 L (7.4-10.4) fL Neut % (Auto) 72.4 % Lymph % (Auto) 17.4 % [place] % (Auto) 6.6 % Eos % (Auto) 3.1 % Baso % (Auto) 0.5 % Absolute Neuts (auto) 7.3 (1.5-7.7) 10^3/ul Absolute Lymphs (auto) 1.8 (1.0-4.8) 10^3/ul Absolute Monos (auto) 0.7 (0-0.8) 10^3/ul Absolute Eos (auto) 0.3 (0-0.6) 10^3/ul Absolute Basos (auto) 0.0 (0-0.2) 10^3/ul Absolute Nucleated RBC 0.0 10^3/ul Nucleated RBC % 0.0 Beta HCG, Quant 14368.00 mIU/mL Urine Color Urine Appearance Urine pH (5-9) Ur Specific [place] (1.010-1.030) Urine Protein (Negative) Urine Ketones (Negative) Urine Blood (Negative) Urine Nitrate (Negative) Urine Bilirubin (Negative) Urine Urobilinogen (Negative) Ur Leukocyte Esterase (Negative) Urine Glucose (Negative) Blood Type O Positive 01/01/20 Range/Units 18:00 WBC (3.5-10.8) 10^3/uL RBC (3.70-4.87) 10^6 /uL Hgb (12.0-16.0) g/dL Hct (35-47) % MCV (80-97) fL MCH (27-31) pg MCHC (31-36) g/dL RDW (10-15) % Plt Count (150-450) 10^3/uL MPV (7.4-10.4) fL Neut % (Auto) % Lymph % (Auto) % [place] % (Auto) % Eos % (Auto) % Baso % (Auto) % Absolute Neuts (auto) (1.5-7.7) 10^3/ul Absolute Lymphs (auto) (1.0-4.8) 10^3/ul Absolute Monos (auto) (0-0.8) 10^3/ul Absolute Eos (auto) (0-0.6) 10^3/ul Absolute Basos (auto) (0-0.2) 10^3/ul Absolute Nucleated RBC 10^3/ul Nucleated RBC % Beta HCG, Quant mIU/mL Urine Color Yellow Urine Appearance Cloudy Urine pH 5.0 (5-9) Ur Specific [place] 1.029 (1.010-1.030) Urine Protein Negative (Negative) Urine Ketones Trace A (Negative) Urine Blood Negative (Negative) Urine Nitrate Negative (Negative) Urine Bilirubin Negative (Negative) Urine Urobilinogen Negative (Negative) Ur Leukocyte Esterase Negative (Negative) Urine Glucose Negative (Negative) Blood Type Result Diagrams: 01/01/20 17:03 Lab Statement: Any lab studies that have been ordered have been reviewed, and results considered in the medical decision making process. - Ultrasound Transvaginal Ultrasound Interpretation Completed By: Radiologist - IMPRESSION: There is a single living intrauterine of sonographic gestational age 15 weeks 3 days, JONATHAN June 21, 2020. ED physician has reviewed this report. Course/Dx - Course Course Of Treatment: 24-year-old presents at 15 weeks gestation with vaginal bleeding. Patient states she had abdominal cramping since yesterday. Today had a quarter size clot from her vagina when she went to the bathroom today. Patient became very anxious obviously. He has had 2 previous miscarriages during the second trimester. She states while waiting here her cramping has lessened. She has had no further vaginal bleeding. She denies any fevers or chills. No urinary complaints. Her blood work shows no significant abnormality. Ultrasound demonstrates a viable intrauterine consistent with dates. Patient is reassured. Discharged home on pelvic rest. Follow-up with [facility]. Follow-up sooner for any worsening symptoms. - Diagnoses Provider Diagnoses: Second trimester bleeding Discharge ED - Sign-Out/Discharge Documenting (check all that apply): Patient Departure - Discharge Plan Condition: Stable Disposition: HOME Patient Education Materials: (ED) Referrals: Rajani Craig MD [Medical Doctor] - 01/02/20 Additional Instructions: Please follow up with Dr. Craig tomorrow 01/02/2020. Please return to the Emergency Department for any new or worsening symptoms. - Billing Disposition and Condition Condition: STABLE Disposition: Home - Attestation Statements Document Initiated by Scribe: Yes Documenting Scribe: Mi Campuzano Provider For Whom Hakeem is Documenting (Include Credential): Johanna Grant MD Scribe Attestation: I, Mi Campuzano, scribed for Johanna Grant MD on 01/01/20 at 2114. Scribe Documentation Reviewed: Yes Provider Attestation: The documentation as recorded by the scribeMi accurately reflects the service I personally performed and the decisions made by me, Johanna Grant MD Status of Scribe Document: Viewed
[2020-01-01 21:05] VITALS: BP 133/96
== END 2020-01-01 21:03 | disposition home or self-care (01) ==
LOC: ED 15:40
DX: O20.9 Hemorrhage in early pregnancy, unspecified (principal); Z3A.15 15 weeks gestation of pregnancy; O99.212 Obesity complicating pregnancy, second trimester; E66.01 Morbid (severe) obesity due to excess calories; O99.512 Diseases of the respiratory system complicating pregnancy, second trimester; J45.909 Unspecified asthma, uncomplicated; Z87.891 Personal history of nicotine dependence; Z79.899 Other long term (current) drug therapy; Z88.0 Allergy status to penicillin; Z88.1 Allergy status to other antibiotic agents
CPT/HCPCS: 36415; 76817; 81003; 84702; 85025; 86900; 86901; 99282